=== PATIENT | male | born 1945 | race Caucasian/White ===

== ENCOUNTER 2023-08-12 10:31 | Outpatient (AMB) | payer MEDICARE, SELFPAY ==
[2023-08-12 10:46] VITALS: BP 124/62; PULSE 61; O2SAT 100; BMI 29.3
--- NOTE | 2023-08-12 10:46 | HO.NEPHOV ---
HPI HPI Comments History of Present Illness Details Edgardo 78-year-old man with a history of hypertension for more than 15 years and diabetes mellitus for more than 5 years. He was on metformin and glipizide. Metformin was discontinued due to CKD. 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 Interstitial fibrosis with tubular atrophy with moderate to severe arterial/arteriolar sclerosis He has been diagnosed with prostate cancer and currently undergoing radiation therapy. [facility] Medical History (Updated 08/12/23 @ 10:59 by Shashank Herrera MD) Prostate cancer Hypertension CKD (chronic kidney disease) Surgical History (Updated 08/12/23 @ 10:49 by Angie Reid MA) H/O eye surgery History of coronary artery stent placement H/O angioplasty Family History Father Diabetes Throat cancer Social History (Updated 08/12/23 @ 10:50 by Angie Reid MA) Alcohol intake: never Patient Tobacco Use Status: Never used Tobacco Vital Signs 08/12/23 10:46 Height 5 ft 9 in Weight 198 lb 2 oz BMI 29.3 BP 124/62 Blood Pressure Location Rt brachial Position Sitting Pulse 61 Pulse Source Pulse Oximeter Pulse Oximetry (%) 100 Oxygen Delivery Method Room Air Physical Exam Vital Signs: Last Vital Signs Pulse 61 08/12/23 10:46 BP 124/62 08/12/23 10:46 Pulse Ox 100 08/12/23 10:46 Oxygen Delivery Method Room Air 08/12/23 10:46 BMI result Body Mass Index 29.3 Const General: comfortable Nutritional Appearance: well nourished Orientation/consciousness: patient oriented x3 HEENT Head: No normal to inspection Mouth: moist mucous membranes Neck Neck: Yes supple and Yes no JVD Resp Auscultation: clear to auscultation bilaterally, no rales and rub present Cardio Jugular venous distension: no JVD Palpation: no palpable S3 and no palpable S4 Heart sounds: no rubs GI Palpation (GI): Soft to palpation and nontender Percussion: No Fluid wave present General: Yes no CVA tenderness Back/Spine/Pelvis Back: no CVA tenderness Skin General skin exam: no rashes or lesions noted Neuro General: patient oriented x3 Extrem General: Yes no pedal edema and No clubbing Assessment & Plan Assessment & Plan (1) CKD (chronic kidney disease) stage 3, GFR 30-59 ml/min: Code(s): N18.30 - Chronic kidney disease, stage 3 unspecified (2) Prostate cancer: Code(s): C61 - Malignant neoplasm of prostate Plan Ignacio has CKD 3 in the setting of longstanding hypertension and diabetes mellitus. He has no significant proteinuria. Kidney biopsy revealed focal segmental mesangial nodular expansion with the interstitial fibrosis and tubular atrophy along with moderate to severe arterial and arteriolar sclerosis. At present renal function close to baseline at 1.5. Goal is to slow the progression renal disease. Continue to avoid nephrotoxic agents including NSAIDs. At present blood pressure is well controlled at this time. Maintain hemoglobin A1c less than 7% Mild elevation in PTH did. He has secondary hyperparathyroidism due to CKD. I will continue to monitor serum calcium phosphorus and PTH and start on vitamin D3 analogues as indicated. Orders: Orders Electrolytes 4 Months C61 - Malignant neoplasm of prostate, N18.30 - Chronic kidney disease, stage 3 unspecified Blood Urea Nitrogen 4 Months C61 - Malignant neoplasm of prostate, N18.30 - Chronic kidney disease, stage 3 unspecified Calcium 4 Months C61 - Malignant neoplasm of prostate, N18.30 - Chronic kidney disease, stage 3 unspecified Parathyroid Hormone Intact 4 Months C61 - Malignant neoplasm of prostate, N18.30 - Chronic kidney disease, stage 3 unspecified Phosphorus 4 Months C61 - Malignant neoplasm of prostate, N18.30 - Chronic kidney disease, stage 3 unspecified Creatinine 4 Months C61 - Malignant neoplasm of prostate, N18.30 - Chronic kidney disease, stage 3 unspecified Total Protein Urine Random 4 Months C61 - Malignant neoplasm of prostate, N18.30 - Chronic kidney disease, stage 3 unspecified Creatinine Urine 4 Months C61 - Malignant neoplasm of prostate, N18.30 - Chronic kidney disease, stage 3 unspecified Vitamin D 25-OH (D2 and D3) 4 Months C61 - Malignant neoplasm of prostate, N18.30 - Chronic kidney disease, stage 3 unspecified Coding Level of Care Code Est Pt Level 4 (25690) Diagnoses CKD (chronic kidney disease) stage 3, GFR 30-59 ml/min N18.30 Prostate cancer C61 Results Reviewed Results Reviewed: As of August 05 creatinine 1.5. Serum electrolytes normal Nephrology Results: No Data to Display
== END 2023-08-12 11:08 | disposition home or self-care (01) ==
LOC: HO.HKAS 10:31
PROVIDERS: PCP Internal Medicine; Visit Provider Internal Medicine Hypertension Specialist
DX: N18.30 Chronic kidney disease, stage 3 unspecified (principal); C61 Malignant neoplasm of prostate
CPT/HCPCS: 99214

== ENCOUNTER → 2023-08-12 10:31 | Outpatient (BNVA) | payer MEDICARE, SELFPAY | PROVIDERS: PCP Internal Medicine; Visit Provider Internal Medicine Hypertension Specialist | DX: N18.30 Chronic kidney disease, stage 3 unspecified (principal); C61 Malignant neoplasm of prostate | CPT/HCPCS: 99212 ==

== ENCOUNTER 2023-12-09 10:34 | Outpatient (AMB) | payer MEDICARE, SELFPAY ==
[2023-12-09 10:35] VITALS: BP 102/62; PULSE 71; O2SAT 96; BMI 30.6
--- NOTE | 2023-12-09 10:35 | HO.NEPHOV ---
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 He was on metformin and glipizide. Metformin was discontinued due to CKD. 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 Interstitial fibrosis with tubular atrophy with moderate to severe arterial/arteriolar sclerosis He has been diagnosed with prostate cancer and currently underwent radiation therapy 4 months ago [facility] Medical History (Updated 08/12/23 @ 10:59 by Shashank Herrera MD) Prostate cancer Hypertension CKD (chronic kidney disease) Surgical History H/O eye surgery History of coronary artery stent placement H/O angioplasty Family History Father Diabetes Throat cancer Social History Alcohol intake: never Patient Tobacco Use Status: Never used Tobacco Physical Exam Vital Signs: Last Vital Signs Pulse 71 12/09/23 10:35 BP 102/62 12/09/23 10:35 Pulse Ox 96 12/09/23 10:35 Oxygen Delivery Method Room Air 12/09/23 10:35 BMI result Body Mass Index 30.6 Const General: comfortable Nutritional Appearance: well nourished Orientation/consciousness: patient oriented x3 HEENT Head: No normal to inspection Mouth: moist mucous membranes Neck Neck: Yes supple and Yes no JVD Resp Auscultation: clear to auscultation bilaterally, no rales and rub present Cardio Jugular venous distension: no JVD Palpation: no palpable S3 and no palpable S4 Heart sounds: no rubs GI Palpation (GI): Soft to palpation and nontender Percussion: No Fluid wave present General: Yes no CVA tenderness Back/Spine/Pelvis Back: no CVA tenderness Skin General skin exam: no rashes or lesions noted Neuro General: patient oriented x3 Extrem General: Yes no pedal edema and No clubbing Results Reviewed Results Reviewed: 12/04/23 Cr 1.64 Urine Pro : Cr 0.09 Nephrology Results: No Data to Display Assessment & Plan Assessment & Plan (1) CKD (chronic kidney disease) stage 3, GFR 30-59 ml/min: Code(s): N18.30 - Chronic kidney disease, stage 3 unspecified Category: Medical (2) Prostate cancer: Code(s): C61 - Malignant neoplasm of prostate Category: Medical Plan Ignacio has CKD 3 in the setting of longstanding hypertension and diabetes mellitus. He has no significant proteinuria. Kidney biopsy revealed focal segmental mesangial nodular expansion with the interstitial fibrosis and tubular atrophy along with moderate to severe arterial and arteriolar sclerosis. At present renal function close to baseline at 1.6. Goal is to slow the progression renal disease. Continue to avoid nephrotoxic agents including NSAIDs. At present blood pressure is well controlled at this time. Maintain hemoglobin A1c less than 7% Mild elevation in PTH He has secondary hyperparathyroidism due to CKD. I will continue to monitor serum calcium phosphorus and PTH and start on vitamin D3 analogues as indicated. Low BP Shall hold off on Lisinopril 5 mg QD and watch Orders: Orders Total Protein Urine Random 4 Months N18.30 - Chronic kidney disease, stage 3 unspecified Creatinine Urine 4 Months N05.9 - Unspecified nephritic syndrome with unspecified morphologic changes, N18.30 - Chronic kidney disease, stage 3 unspecified Parathyroid Hormone Intact 4 Months N18.30 - Chronic kidney disease, stage 3 unspecified Basic Metabolic Panel 4 Months N18.30 - Chronic kidney disease, stage 3 unspecified Medications: Discontinued lisinopril Discontinued Reason: Doctor's Order 5 mg PO DAILY 30 tabs 3RF Coding Level of Care Code Est Pt Level 4 (81175) Diagnoses CKD (chronic kidney disease) stage 3, GFR 30-59 ml/min N18.30 Prostate cancer C61
== END 2023-12-09 10:56 | disposition home or self-care (01) ==
PROVIDERS: PCP Internal Medicine; Visit Provider Internal Medicine Hypertension Specialist
DX: N18.30 Chronic kidney disease, stage 3 unspecified (principal); C61 Malignant neoplasm of prostate
CPT/HCPCS: 99214

== ENCOUNTER → 2023-12-09 10:34 | Outpatient (BNVA) | payer MEDICARE, SELFPAY | PROVIDERS: PCP Internal Medicine; Visit Provider Internal Medicine Hypertension Specialist | DX: E11.22 Type 2 diabetes mellitus with diabetic chronic kidney disease (principal); N18.30 Chronic kidney disease, stage 3 unspecified; C61 Malignant neoplasm of prostate; N05.9 Unspecified nephritic syndrome with unspecified morphologic changes | CPT/HCPCS: 99212 ==

== ENCOUNTER 2024-06-22 08:50 | Outpatient (AMB) | payer MEDICARE, SELFPAY ==
[2024-06-22 08:51] VITALS: BP 136/72; PULSE 73; O2SAT 97; BMI 32.5
--- NOTE | 2024-06-22 08:51 | HO.NEPHOV_ITS ---
Vital Signs 06/22/24 08:51 Height 5 ft 9 in Weight 220 lb BMI 32.5 BP 136/72 Blood Pressure Location Lt brachial Position Sitting Pulse 73 Pulse Source Pulse Oximeter Pulse Oximetry (%) 97 Oxygen Delivery Method Room Air Intake Visit Reasons: December appt w/ labs/ CKD/ Conf Literary Writer Required: No Accompanied by: Self / Same As Patient Allergies insulin glargine Allergy (Verified 06/22/24 08:52) Unknown Penicillins Allergy (Verified 06/22/24 08:52) Unknown Medication List - Last Reconciled 06/22/24 by Shashank Herrera MD atorvastatin 80 mg PO DAILY cholecalciferol (vitamin D3) 25 mcg PO DAILY cyanocobalamin (vitamin B-12) 1,000 mcg PO DAILY dutasteride mg PO .every other day fluticasone propionate 50 mcg/actuation sprays intranasal PRN glipizide 5 mg PO BID insulin aspart (niacinamide) 100 unit/mL (3 mL) (Fiasp FlexTouch U-100 Insulin) subcut TID leuprolide mesylate (6 month) (Camcevi (6 month)) 42 mg subcut [id number] metoprolol tartrate 50 mg PO BID omega-3 fatty acids-fish oil 360-1,200 mg (Fish Oil) 1 cap PO DAILY omeprazole 20 mg PO DAILY PRN vitamin B complex (Vitamins B Complex tablet) 1 tab PO DAILY HPI Comments Details: Edgardo 78-year-old man with a history of hypertension for more than 15 years and diabetes mellitus for more than 5 years. He was on metformin and glipizide. Metformin was discontinued due to CKD. 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 Interstitial fibrosis with tubular atrophy with moderate to severe arterial/arteriolar sclerosis He has been diagnosed with prostate cancer and currently underwent radiation therapy . Now on Leuprolide SQ q 6 month c/o Fatigue Has gained about 15 lbs [facility] Medical History (Updated 08/12/23 @ 10:59 by Shashank Herrera MD) Prostate cancer Hypertension CKD (chronic kidney disease) Surgical History H/O eye surgery History of coronary artery stent placement H/O angioplasty Family History Father Diabetes Throat cancer Social History Alcohol intake: never Patient Tobacco Use Status: Never used Tobacco Physical Exam Vital Signs: Last Vital Signs Pulse 73 06/22/24 08:51 BP 136/72 06/22/24 08:51 Pulse Ox 97 06/22/24 08:51 Oxygen Delivery Method Room Air 06/22/24 08:51 BMI result Body Mass Index 32.5 Const General: comfortable Nutritional Appearance: well nourished Orientation/consciousness: patient oriented x3 HEENT Head: No normal to inspection Mouth: moist mucous membranes Neck Neck: Yes supple and Yes no JVD Resp Auscultation: clear to auscultation bilaterally, no rales and rub present Cardio Jugular venous distension: no JVD Palpation: no palpable S3 and no palpable S4 Heart sounds: no rubs GI Palpation (GI): Soft to palpation and nontender Percussion: No Fluid wave present General: Yes no CVA tenderness Back/Spine/Pelvis Back: no CVA tenderness Skin General skin exam: no rashes or lesions noted Neuro General: patient oriented x3 Extrem General: Yes no pedal edema and No clubbing Results Reviewed Results Reviewed: 06/17/24 cr 1.73 Nephrology Results: No Data to Display Assessment & Plan Assessment & Plan (1) CKD (chronic kidney disease) stage 3, GFR 30-59 ml/min: Code(s): N18.30 - Chronic kidney disease, stage 3 unspecified Category: Medical (2) Prostate cancer: Code(s): C61 - Malignant neoplasm of prostate Category: Medical Plan Ray has CKD 3 in the setting of longstanding hypertension and diabetes mellitus. He has no significant proteinuria. Kidney biopsy revealed focal segmental mesangial nodular expansion with the interstitial fibrosis and tubular atrophy along with moderate to severe arterial and arteriolar sclerosis. At present renal function close to baseline at 1.6. Goal is to slow the progression renal disease. Continue to avoid nephrotoxic agents including NSAIDs. At present blood pressure is well controlled at this time. Maintain hemoglobin A1c less than 7% Mild elevation in PTH He has secondary hyperparathyroidism due to CKD. I will continue to monitor serum calcium phosphorus and PTH and start on vitamin D3 analogues as indicated. Check Vit D levels Low BP REsolved after stopping Lisinopril 5 mg QD FAtigue Due to testosterone antagonist Will check HCt adn TSH for completion Orders: Orders Vitamin D 25-OH (D2 and D3) Today C61 - Malignant neoplasm of prostate, N18.30 - Chronic kidney disease, stage 3 unspecified Complete Blood Count no Diff Today C61 - Malignant neoplasm of prostate, N18.30 - Chronic kidney disease, stage 3 unspecified TSH reflex Free T4 Today C61 - Malignant neoplasm of prostate, N18.30 - Chronic kidney disease, stage 3 unspecified Basic Metabolic Panel 6 Months N18.30 - Chronic kidney disease, stage 3 unspecified Complete Blood Count no Diff 6 Months N18.30 - Chronic kidney disease, stage 3 unspecified Parathyroid Hormone Intact 6 Months N18.30 - Chronic kidney disease, stage 3 unspecified Coding Level of Care Code Est Pt Level 4 (66383) Diagnoses CKD (chronic kidney disease) stage 3, GFR 30-59 ml/min N18.30 Prostate cancer C61
== END 2024-06-22 09:10 | disposition home or self-care (01) ==
PROVIDERS: PCP Internal Medicine; Visit Provider Internal Medicine Hypertension Specialist
DX: N18.30 Chronic kidney disease, stage 3 unspecified (principal); C61 Malignant neoplasm of prostate
CPT/HCPCS: 99214

== ENCOUNTER → 2024-06-22 08:50 | Outpatient (BNVA) | payer MEDICARE, SELFPAY | PROVIDERS: PCP Internal Medicine; Visit Provider Internal Medicine Hypertension Specialist | DX: E11.22 Type 2 diabetes mellitus with diabetic chronic kidney disease (principal); I12.9 Hypertensive chronic kidney disease with stage 1 through stage 4 chronic kidney disease, or unspecified chronic kidney disease; C61 Malignant neoplasm of prostate; N18.30 Chronic kidney disease, stage 3 unspecified | CPT/HCPCS: 99212 ==

== ENCOUNTER 2024-12-21 10:46 | Outpatient (REF) | payer MEDICARE, SELFPAY ==
--- OUTSIDE RECORDS SUMMARY | 2024-12-21 12:16 | XMS_ITS | Encounter Summary ---
Author Organization [facility] Address [address] [place] [address] Care Team Providers Care Fixed Income Analyst Name Role Phone Bahman Corrales MD Primary Care Provider [phone] Encounter Details Date Type Department Care Team Description 06/17/2021 Orders Only Internal Medicine - [address], [address] [place] [address] Bahman Corrales MD [address] [place] [address] Type 2 diabetes mellitus without complication, without long-term current use of insulin (HCC) (Primary Dx); Essential hypertension Social History Tobacco Use Types Packs/Day Years Used Date Smoking Tobacco: Former Cigarettes 0.8 15 Q uit: 06/09/1980 Smokeless Tobacco: Never Alcohol Use Standard Drinks/Week Comments Yes 0 (1 standard drink = 0.6 oz pur e alcohol) occasional Sex Assigned at Date Recorded Male 03/06/2021 9:27 AM E DT Job Start Date Occupation Industry Not on file Not on file Not on file COVID-19 Exposure Response Date Recorded In the last month, have you been in contact with someone who was confirmed or suspected to have Coronavirus / COVID-19? No / Unsure 06/19/2021 8:37 AM EST documented as of this encounter Plan of Treatment Not on file documented as of this encounter Results * (ABNORMAL) HEMOGLOBIN A1C (06/19/2021 8:38 AM EST) GLYCATED HEMOGLOBIN A1C 6.9(H) 4.8 - 5.6 % 06/24/2021 11:08 AM EST [facility] Comment: Prediabetes: 5.7 - 6.4 Diabetes: >6.4 Glycemic control for adults with diabetes: <7.0 PLEASE NOTE A1c testing is temporarily being performed at [facility] due to instrumentation issues at [facility] Note differences in reference ranges. Testing performed at: [address] [address] PHONE: ESTIMATED AVERAGE GLUCOSE 151 mg/dL 06/24/2021 11:08 AM EST [facility] 06/19/2021 8:38 AM EST 06/19/2021 8:38 AM EST Narrative [facility] - 06/24/2021 11:08 AM EST Release to patient->Immediate Bahman Corrales MD LAB Performing Organization Address City/[facility]/ZIP Co de Phone Number [facility] * (ABNORMAL) LIPID PROFILE (06/19/2021 8:38 AM EST) Cholesterol 108 0 - 200 mg/dL 06/19/2021 2:55 PM EST [facility] TRIGLYCERIDES 193(H) 0 - 150 mg/dL 06/19/2021 2:55 PM EST [facility] HDL CHOLESTEROL 38(L) >40 mg/dL 2:55 PM EST [facility] LDL CALCULATED 32 0 - 100 mg/dL 06/19/2021 2:55 PM EST [facility] TC-HDLC RATIO 2.8 0 - 4.4 mg/dL 06/19/2021 2:55 PM EST [facility] 06/19/2021 8:38 AM EST 06/19/2021 8:38 AM EST Narrative [facility] - 06/19/2021 2:55 PM EST Release to patient->Immediate Bahman Corrales MD LAB [facility] * THYROID PROFILE W/TSH (06/19/2021 8:38 AM EST) TSH CASCADE 1.48 0.40 - 4.00 uIU/ml 06/19/2021 3:01 PM EST [facility] 06/19/2021 8:38 AM EST 06/19/2021 8:38 AM EST Narrative [facility] - 06/19/2021 3:01 PM EST Release to patient->Immediate Bahman Corrales MD LAB [facility] * (ABNORMAL) CBC (AUTO DIFF PLATELET) (06/19/2021 8:38 AM EST) Pathologist [facility] WHITE BLOOD COUNT 6.5 4.8 - 10.8 x10-3/uL 06/19/2021 2:25 PM EST [facility] RED BLOOD COUNT 4.1(L) 4.5 - 5.5 x10-6/uL 06/19/2021 2:25 PM EST [facility] Hemoglobin 12.3(L) 13.5 - 17.5 g/dL 06/19/2021 2:25 PM EST [facility] Hematocrit 38.5(L) 42 - 54 % 06/19/2021 2:25 PM EST [facility] MEAN CORPUSCULAR VOLUME 95.1 79 - 98 fL 06/19/2021 2:25 PM EST [facility] MEAN CORPUSCULAR HEMOGLOBIN 30.4 27 - 32 pg 06/19/2021 2:25 PM EST [facility] MEAN CORPUSCULAR HGB CONC 31.9(L) 32 - 37 g/dL 06/19/2021 2:25 PM EST [facility] RED CELL DISTRIBUTION WIDTH 12.8 11 - 15 % 06/19/2021 2:25 PM EST [facility] PLT COUNT 179 130 - 400 x10-3/uL 06/19/2021 2:25 PM EST [facility] MEAN PLATELET VOLUME 10.3 7 - 11 fL 06/19/2021 2:25 PM EST [facility] NRBC % AUTO 0.0 <1 % 06/19/2021 2:25 PM EST [facility] NEUTROPHILS % 71.2 % 06/19/2021 2:25 PM EST [facility] LYMPH % 14.7 % 06/19/2021 2:25 PM EST [facility] MONO % 9.4 % 06/19/2021 2:25 PM EST [facility] EOS % 3.9 % 06/19/2021 2:25 PM EST [facility] BASO % 0.5 % 06/19/2021 2:25 PM EST [facility] IMMATURE GRANULOCYTES % 0.3 % 06/19/2021 2:25 PM EST [facility] NRBC # AUTO 0.00 <0.1 x10-3/uL 06/19/2021 2:25 PM EST [facility] NEUT # 4.60 1.5 - 7.0 x10-3/uL 06/19/2021 2:25 PM EST [facility] LYMPH # 0.95(L) 1 - 5.0 x10-3/uL 06/19/2021 2:25 PM EST [facility] MONO # 0.61 0.2 - 1.0 x10-3/uL 06/19/2021 2:25 PM EST [facility] EOS # 0.25 0 - 0.5 x10-3/uL 06/19/2021 2:25 PM EST [facility] BASO # 0.03 0 - 0.2 x10-3/uL 06/19/2021 2:25 PM EST [facility] IMMATURE GRANULOCYTES # 0.02 0 - 0.03 x10-3/uL 06/19/2021 2:25 PM EST [facility] 06/19/2021 8:38 AM EST 06/19/2021 8:38 AM EST Narrative [facility] - 06/19/2021 2:25 PM EST Release to patient->Immediate Bahman Corrales MD LAB [facility] * (ABNORMAL) COMPREHENSIVE METABOLIC PANEL (06/19/2021 8:38 AM EST) GLUCOSE 167(H) 70 - 100 mg/dL 06/19/2021 2:55 PM EST [facility] Comment:Reference range appl icable to fasting specimens only Blood Urea Nitrogen 25 5 - 25 mg/dL 06/19/2021 2:55 PM EST [facility] CREAT 1.65(H) 0.7 - 1.3 mg/dL 06/19/2021 2:55 PM EST [facility] GLOMERULAR FILTRATION RATE 41 06/19/2021 2:55 PM EST [facility] Comment: If patient is -Congolese, multiply result by 1.21 Chronic Kidney Disease: < 60 ml/min/1.73 square meters Kidney Failure: < 15 ml/min/1.73 square meters NA 136 135 - 145 mEq/L 06/19/2021 2:55 PM EST [facility] K 5.2 3.5 - 5.5 mmol/L 06/19/2021 2:55 PM EST [facility] CL 106 96 - 110 mmol/L 06/19/2021 2:55 PM EST [facility] CARBON DIOXIDE (CO2) 24 21 - 32 mmol/L 06/19/2021 2:55 PM EST [facility] ANION GAP 6 3 - 11 06/19/2021 2:55 PM EST [facility] CALCIUM 9.8 8.5 - 10.5 mg/dL 06/19/2021 2:55 PM EST [facility] TOTAL PROTEIN (TP) 7.0 6.0 - 8.0 G/dL 06/19/2021 2:55 PM EST [facility] Albumin 3.8 3.2 - 5.0 G/dL 06/19/2021 2:55 PM EST [facility] BILIRUBIN TOTAL 0.8 0.0 - 1.4 mg/dL 06/19/2021 2:55 PM EST [facility] SGOT 22 10 - 42 U/L 06/19/2021 2:55 PM EST [facility] SGPT 34 10 - 60 U/L 06/19/2021 2:55 PM EST [facility] ALK PHOS 68 42 - 121 U/L 06/19/2021 2:55 PM EST [facility] 06/19/2021 8:38 AM EST 06/19/2021 8:38 AM EST Narrative [facility] - 06/19/2021 2:55 PM EST Release to patient->Immediate Bahman Corrales MD LAB [facility] documented in this encounter Visit Diagnoses Diagnosis Type 2 diabetes mellitus without complication, without long-term current use of insulin (HCC)- Primary Essential hypertension Unspecified essential hypertension Type 2 diabetes mellitus without complication, without long-term current use of insulin (HCC) Essential hypertension Unspecified essential hypertension documented in this encounter Care Teams Fixed Income Analyst Relationship Specialty Start Date End Date Bahman Corrales MD [address] [place] [address] PCP - General Internal Medicine 09/03/18 documented as of this encounter
--- OUTSIDE RECORDS SUMMARY | 2024-12-21 12:16 | XMS_ITS | Encounter Summary ---
Author Organization [facility] Address [address] [place] [address] Care Team Providers Care Concrete Form Setter And Finisher Name Role Phone Bahman Corrales MD Primary Care Provider [phone] Encounter Details Date Type Department Care Team Description 06/11/2023 Director Customer Report Medical Records [address] [place] [id number] Lee Wilhelm MD Social History Tobacco Use Types Packs/Day Years Used Date Smoking Tobacco: Former Cigarettes 0.8 15 Q uit: 06/09/1980 Smokeless Tobacco: Never Alcohol Use Standard Drinks/Week Comments Yes 0 (1 standard drink = 0.6 oz pur e alcohol) occasional very rarely Sex Assigned at Date Recorded Male 03/06/2021 9:27 AM E DT Job Start Date Occupation Industry Not on file Not on file Not on file COVID-19 Exposure Response Date Recorded In the last 10 days, have yo u been in contact with someone who was confirmed or suspected to have Coronavirus/COVID-19? Unable to assess 06/11/2023 3:56 PM EDT documented as of this encounter Plan of Treatment Not on file documented as of this encounter Visit Diagnoses Not on filedocumented in this encounter Care Teams Concrete Form Setter And Finisher Relationship Specialty Start Date End Date Bahman Corrales MD [address] [place] [address] PCP - General Internal Medicine 09/03/18 documented as of this encounter
--- OUTSIDE RECORDS SUMMARY | 2024-12-21 12:16 | XMS_ITS | Encounter Summary ---
Author Organization [facility] Address [address] [place] [address] Care Team Providers Care Lifestyle Consultant Name Role Phone Bahman Corrales MD Primary Care Provider [phone] Reason for Visit * Reason Onset Date Comments lab test 12/10/2020 Encounter Details Date Type Department Care Team Description 12/10/2020 Telephone Internal Medicine - [address], [address] [place] [address] Bahman Corrales MD [address] [place] [address] lab test Social History Tobacco Use Types Packs/Day Years Used Date Smoking Tobacco: Former Cigarettes 0.8 15 Q uit: 06/09/1980 Smokeless Tobacco: Never Alcohol Use Standard Drinks/Week Comments Yes 0 (1 standard drink = 0.6 oz pur e alcohol) occasional Sex Assigned at Date Recorded Male 03/06/2021 9:27 AM E DT Job Start Date Occupation Industry Not on file Not on file Not on file documented as of this encounter Miscellaneous Notes * Telephone Encounter - Reena Adams M.A. - 12/10/2020 10:02 AM EDT Left a voicemail for patient and stated labs were in place documented in this encounter Plan of Treatment Not on file documented as of this encounter Visit Diagnoses Not on filedocumented in this encounter Care Teams Lifestyle Consultant Relationship Specialty Start Date End Date Bahman Corrales MD [address] [place] [address] PCP - General Internal Medicine 09/03/18 documented as of this encounter
--- OUTSIDE RECORDS SUMMARY | 2024-12-21 12:16 | XMS_ITS | Encounter Summary ---
Author Organization [facility] Address [address] [place] [address] Care Team Providers Care Hospice Chaplain Name Role Phone Bahman Corrales MD Primary Care Provider [phone] Encounter Details Date Type Department Care Team Description 12/02/2022 Orders Only Internal Medicine - [address], [address] [place] [address] Bahman Corrales MD [address] [place] [address] Social History Tobacco Use Types Packs/Day Years [...] suspected to have Coronavirus/COVID-19? No / Unsure 11/25/2022 1:04 PM EDT documented as of this encounter Plan of Treatment Not on file documented as of this encounter Visit Diagnoses Not on filedocumented in this encounter Care Teams Hospice Chaplain Relationship Specialty Start Date End Date Bahman Corrales MD [address] [place], [place] [id number] PCP - General Internal Medicine 09/03/18 documented as of this encounter
--- OUTSIDE RECORDS SUMMARY | 2024-12-21 12:16 | XMS_ITS | Encounter Summary ---
Author Organization [facility] Address [address] [place] [address] Care Team Providers Care Reprographics Associate Name Role Phone Bahman Corrales MD Primary Care Provider [phone] Reason for Visit * Reason Onset Date Comments Faxed Refill 10/10/2022 Encounter Details Date Type Department Care Team Description 10/10/2022 Refill Internal Medicine - [address], [address] [place] [address] Bahman Corrales MD [address] [place] [address] Faxed Refill Social History Tobacco Use Types Packs/Day Years [...] suspected to have Coronavirus/COVID-19? No / Unsure 09/29/2022 8:14 AM EST documented as of this encounter Miscellaneous Notes * Telephone Encounter - Zenaida Whiteside - 10/13/2022 9:49 AM EST Orders Only on 09/24/2022 Component Date Value ??? GLYCATED HEMOGLOBIN A1C 09/24/2022 7.7 (H) ??? ESTIMATED AVERAGE GLUCOSE 09/24/2022 174 ??? Cholesterol 09/24/2022 108 ??? TRIGLYCERIDES 09/24/2022 171 (H) ??? HDL CHOLESTEROL 09/24/2022 40 ??? LDL CALCULATED 09/24/2022 34 ??? TC-HDLC RATIO 09/24/2022 2.7 ??? TSH CASCADE 09/24/2022 2.50 ??? WHITE BLOOD COUNT 09/24/2022 6.8 ??? RED BLOOD COUNT 09/24/2022 4.1 (L) ??? Hemoglobin 09/24/2022 12.6 (L) ??? Hematocrit 09/24/2022 38.7 (L) ??? MEAN CORPUSCULAR VOLUME 09/24/2022 95.1 ??? MEAN CORPUSCULAR HEMOGLO* 09/24/2022 31.0 ??? MEAN CORPUSCULAR HGB CONC 09/24/2022 32.6 ??? RED CELL DISTRIBUTION WI* 09/24/2022 13.2 ??? PLT COUNT 09/24/2022 236 ??? MEAN PLATELET VOLUME 09/24/2022 9.9 ??? NRBC % AUTO 09/24/2022 0.0 ??? NEUTROPHILS % 09/24/2022 64.4 ??? LYMPH % 09/24/2022 20.8 ??? MONO % 09/24/2022 8.3 ??? EOS % 09/24/2022 5.1 ??? BASO % 09/24/2022 0.7 ??? IMMATURE GRANULOCYTES % 09/24/2022 0.7 ??? NRBC # AUTO 09/24/2022 0.00 ??? NEUT # 09/24/2022 4.40 ??? LYMPH # 09/24/2022 1.42 ??? MONO # 09/24/2022 0.57 ??? EOS # 09/24/2022 0.35 ??? BASO # 09/24/2022 0.05 ??? IMMATURE GRANULOCYTES # 09/24/2022 0.05 (H) ??? GLUCOSE 09/24/2022 194 (H) ??? Blood Urea Nitrogen 09/24/2022 40 (H) ??? CREAT 09/24/2022 2.47 (H) ??? GLOMERULAR FILTRATION RA* 09/24/2022 26 (L) ??? NA 09/24/2022 135 ??? K 09/24/2022 4.9 ??? CL 09/24/2022 104 ??? CARBON DIOXIDE (CO2) 09/24/2022 25 ??? ANION GAP 09/24/2022 6 ??? CALCIUM 09/24/2022 10.1 ??? Albumin 09/24/2022 3.9 ??? SGOT 09/24/2022 17 ??? TOTAL PROTEIN (TP) 09/24/2022 7.3 ??? BILIRUBIN TOTAL 09/24/2022 0.6 ??? SGPT 09/24/2022 30 ??? ALK PHOS 09/24/2022 49 * Telephone Encounter - Jose Soriano - 10/10/2022 3:24 PM EST [facility] 09/29/22 NOV 02/26/23 documented in this encounter Plan of Treatment Not on file documented as of this encounter Visit Diagnoses Diagnosis Type 2 diabetes mellitus without complication, without long-term current use of insulin (HCC) documented in this encounter Care Teams Reprographics Associate Relationship Specialty Start Date End Date Bahman Corrales MD [address] [place] [address] PCP - General Internal Medicine 09/03/18 documented as of this encounter
--- OUTSIDE RECORDS SUMMARY | 2024-12-21 12:16 | XMS_ITS | Encounter Summary ---
Author Organization [facility] Address [address] [place] [address] Care Team Providers Care Catering Truck Operator Name Role Phone Bahman Corrales MD Primary Care Provider [phone] Reason for Visit * Reason Onset Date Comments Faxed Refill 12/27/2018 Encounter Details Date Type Department Care Team Description 12/27/2018 Refill Internal Medicine - [address], [address] [place] [address] Bahman Corrales MD [address] [place] [address] Faxed Refill Social History Tobacco Use Types Packs/Day Years Used Date Smoking Tobacco: Former Cigarettes 0.5 15 Q uit: 06/09/1980 Smokeless Tobacco: Never Alcohol Use Standard Drinks/Week Comments Yes 0 (1 standard drink = 0.6 oz pur e alcohol) occasional Sex Assigned at Date Recorded Male 03/06/2021 9:27 AM E DT Job Start Date Occupation Industry Not on file Not on file Not on file documented as of this encounter Miscellaneous Notes * Telephone Encounter - Michelle Gurvinder - 12/27/2018 4:38 PM EDT Patient would like script to be: E-PRESCRIBED/FAXED TO PHARMACY WHEN WAS THE PATIENT'S LAST APPOINTMENT IN ADULT MEDICINE? 11/23/2018 WHEN WAS THE LAST TIME THE PATIENT SAW THEIR PCP? Does patient have an upcoming appointment? Yes 04/05/2019 (THE MEDICATION REQUESTED IS ON THE MED LIST ABOVE) All of the medications requested were on the CURRENT MEDS list Did you check the Pharmacy information above?: YES Patient wants: 30 -day supply Is this a mail order prescription request ? NO If the refill is from a FAXED refill request what is the RX # listed on the fax? N/A Patients current insurance carrier is: [place] / [place] / Product Type: MEDICARE [id number] documented in this encounter Plan of Treatment Not on file documented as of this encounter Visit Diagnoses Not on filedocumented in this encounter Care Teams Catering Truck Operator Relationship Specialty Start Date End Date Bahman Corrales MD [address] [place] [address] PCP - General Internal Medicine 09/03/18 documented as of this encounter
--- OUTSIDE RECORDS SUMMARY | 2024-12-21 12:16 | XMS_ITS | Encounter Summary ---
Author Organization [facility] Address [address] [place] [address] Care Team Providers Care Line Assembly Utility Worker Name Role Phone Bahman Corrales MD Primary Care Provider [phone] Encounter Details Date Type Department Care Team Description 06/23/2023 Solar Process Engineer Report Medical Records [address] [place] [address] Norris Humphries MD Social History Tobacco Use Types Packs/Day [...] on filedocumented in this encounter Care Teams Line Assembly Utility Worker Relationship Specialty Start Date End Date Bahman Corrales MD [address] [place] [address] PCP - General Internal Medicine 09/03/18 documented as of this encounter
--- OUTSIDE RECORDS SUMMARY | 2024-12-21 12:16 | XMS_ITS | Encounter Summary ---
Author Organization [facility] Address [address] [place] [address] Care Team Providers Care Paying Teller Name Role Phone Bahman Corrales MD Primary Care Provider [phone] Reason for Visit * Reason Onset Date Comments Provider Call Back 10/31/2020 Encounter Details Date Type Department Care Team Description 10/31/2020 Telephone Internal Medicine - [address], [address] [place] [address] Bahman Corrales MD [address] [place] [address] Provider Call Back Social History Tobacco Use Types Packs/Day Years [...] encounter Miscellaneous Notes * Telephone Encounter - Jackie Williamson L.P.N. - 10/31/2020 2:22 PM EDT Please see below and advise re increasing omeprazole 20 mg per Natalyia pulmo for cough, patient presently taking QOD thanks * Telephone Encounter - Altagracia Viera - 10/31/2020 9:30 AM EDT Caller requesting call back from provider: Is the caller the patient? YES If caller is not the patient, what is the callers name? N/A Callers relationship to patient? N/A If person calling is not the patient themselves, is there a verbal release in FYI or permanent comments for this person: NO Reason for call back: Patient states that Extension Edger Joanna told him to call Dr. Corrales and have him increase omeprazole (PRILOSEC) 20 MG capsule. He currently takes it every other day and Joanna is requesting he takes it everyday, she thinks this may be what is causing his persistent cough.Please call and advise. Caller offered to speak with the nurse for assistance: YES Response: Patient offered to speak with nurse for assistance and patient agreed. Message forwarded to nurse. documented in this encounter Plan of Treatment Not on file documented as of this encounter Visit Diagnoses Not on filedocumented in this encounter Care Teams Paying Teller Relationship Specialty Start Date End Date Bahman Corrales MD [address] [place] [address] PCP - General Internal Medicine 09/03/18 documented as of this encounter
--- OUTSIDE RECORDS SUMMARY | 2024-12-21 12:16 | XMS_ITS | Encounter Summary ---
Author Organization [employer] [facility] Address [address] [place] [address] Care Team Providers Care Composition Siding Worker Name Role Phone Bahman Corrales MD Primary Care Provider [phone] Encounter Details Date Type Department Care Team Description 01/29/2023 Upholstery Bundler Report Medical Records [address] [place] [address] Lee Wilhelm MD Social History Tobacco Use [...] suspected to have Coronavirus/COVID-19? No / Unsure 01/01/2023 10:02 AM EDT documented as of this encounter Plan of Treatment Not on file documented as of this encounter Visit Diagnoses Not on filedocumented in this encounter Care Teams Composition Siding Worker Relationship Specialty Start Date End Date Bahman Corrales MD [address] [place] [address] PCP - General Internal Medicine 09/03/18 documented as of this encounter
--- OUTSIDE RECORDS SUMMARY | 2024-12-21 12:16 | XMS_ITS | Encounter Summary ---
Author Organization [employer] [facility] Address [address] [place] [address] Care Team Providers Care Bed Control Specialist Name Role Phone Bahman Corrales MD Primary Care Provider [phone] Encounter Details Date Type Department Care Team Description 04/24/2020 Orders Only Internal Medicine - [address], [address] [place] [address] Bahman Corrales MD [address] [place] [address] Social History Tobacco Use Types Packs/Day Years [...] have Coronavirus / COVID-19? No / Unsure 04/24/2020 8:35 AM EDT documented as of this encounter Plan of Treatment Not on file documented as of this encounter Visit Diagnoses Not on filedocumented in this encounter Care Teams Bed Control Specialist Relationship Specialty Start Date End Date Bahman Corrales MD [address] [place], [place] [id number] PCP - General Internal Medicine 09/03/18 documented as of this encounter
--- OUTSIDE RECORDS SUMMARY | 2024-12-21 12:16 | XMS_ITS | Encounter Summary ---
Author Organization [facility] Address [address] [place] [address] Care Team Providers Care Fire Extinguisher Installer Name Role Phone Bahman Corrales MD Primary Care Provider [phone] Reason for Visit * Reason Comments E-prescribe Rx Request Encounter Details Date Type Department Care Team Description 03/05/2021 Refill Pulmonology - [address] [place] [phone] Bahman Corrales MD [address] [place] [address] E-prescribe Rx Request Social History Tobacco Use Types Packs/Day Years [...] encounter Miscellaneous Notes * Telephone Encounter - Maren Jones - 03/08/2021 3:26 PM EDT [place] 12/20/2020 NOV 06/25/2021 90 day supply documented in this encounter Plan of Treatment Not on file documented as of this encounter Visit Diagnoses Not on filedocumented in this encounter Care Teams Fire Extinguisher Installer Relationship Specialty Start Date End Date Bahman Corrales MD [address] [place] [address] PCP - General Internal Medicine 09/03/18 documented as of this encounter
--- OUTSIDE RECORDS SUMMARY | 2024-12-21 12:16 | XMS_ITS | Encounter Summary ---
Author Organization [employer] [facility] Address [address] [place] [address] Care Team Providers Care Audio Visual Tech Name Role Phone Bahman Corrales MD Primary Care Provider [phone] Reason for Visit * Reason Onset Date Comments refill request 06/24/2023 Encounter Details Date Type Department Care Team Description 06/24/2023 Refill Internal Medicine - [address], [address] [place] [address] Bahman Corrales MD [address] [place] [address] refill request Social History Tobacco Use Types Packs/Day Years [...] encounter Miscellaneous Notes * Telephone Encounter - Kalsa Guadalupe - 06/25/2023 8:38 AM EST Orders Only on 04/09/2023 Component Date Value ??? GLYCATED HEMOGLOBIN A1C 04/09/2023 6.9 (H) ??? ESTIMATED AVERAGE GLUCOSE 04/09/2023 151 ??? CREATININE, RANDOM URINE 04/09/2023 126 ??? MICROALBUMIN, RANDOM 04/09/2023 22.1 ??? MICROALB/CRE RATIO RANDOM 04/09/2023 17.5 documented in this encounter Plan of Treatment Not on file documented as of this encounter Visit Diagnoses Not on filedocumented in this encounter Care Teams Audio Visual Tech Relationship Specialty Start Date End Date Bahman Corrales MD [address] [place] [address] PCP - General Internal Medicine 09/03/18 documented as of this encounter
--- OUTSIDE RECORDS SUMMARY | 2024-12-21 12:16 | XMS_ITS | Encounter Summary ---
Author Organization [facility] Address [address] [place] [address] Care Team Providers Care Chair And Couch Maker Name Role Phone Bahman Corrales MD Primary Care Provider [phone] Encounter Details Date Type Department Care Team Description 09/09/2023 Pt. Non Urgent Medical Question Endocrinology - [address] [address] Connie Baker PA-C [address] [place] [address] Social History Tobacco Use Types Packs/Day Years [...] encounter Miscellaneous Notes * Telephone Encounter - Raza Camejo - 09/09/2023 12:35 PM ESTFrom: Dany Dudley To: Azeb Baker Sent: 09/09/2023 12:16 PM EST Subject: blood glucose levels From Ignacio Dudley- Currently being treated for prostate cancer with radiation and testosterone blockerEligard. Having difficulty keeping blood glucose average under 160. Any suggestions? documented in this encounter Plan of Treatment Not on file documented as of this encounter Visit Diagnoses Not on filedocumented in this encounter Care Teams Chair And Couch Maker Relationship Specialty Start Date End Date Bahman Corrales MD [address] [place] [address] PCP - General Internal Medicine 09/03/18 documented as of this encounter
--- OUTSIDE RECORDS SUMMARY | 2024-12-21 12:16 | XMS_ITS | Encounter Summary ---
Author Organization [facility] Address [address] [place] [address] Care Team Providers Care Case Manager Name Role Phone Bahman Corrlaes MD Primary Care Provider [phone] Reason for Visit * Reason Onset Date Comments refill request 07/19/2019 Encounter Details Date Type Department Care Team Description 07/19/2019 Refill Adult Med - [place] [address] [place] [address] Bahman Corrales MD [address] [place], [place] [id number] refill request Social History Tobacco Use Types [...] encounter Miscellaneous Notes * Telephone Encounter - Tarik Aragon R.N. - 07/19/2019 2:28 PM EST Last OV 04/05/19 Next OV 10/11/19 Last fill 06/22/18 Lab Results Component Value Date HGBA1C 6.9 03/30/2019 * Telephone Encounter - Bertha Jacobs - 07/19/2019 1:00 PM EST Patient would like script to be: E-PRESCRIBED/FAXED TO PHARMACY WHEN WAS THE PATIENT'S LAST APPOINTMENT IN ADULT MEDICINE? 04/05/19 WHEN WAS THE LAST TIME THE PATIENT SAW THEIR PCP? Same as above Does patient have an upcoming appointment? Yes 10/11/19 (THE MEDICATION REQUESTED IS ON THE MED [...] / Plan: [place] / Product Type: MEDICARE [id number] documented in this encounter Plan of Treatment Not on file documented as of this encounter Visit Diagnoses Not on filedocumented in this encounter Care Teams Case Manager Relationship Specialty Start Date End Date Bahman Corrales MD [address] [place] [address] PCP - General Internal Medicine 09/03/18 documented as of this encounter
--- OUTSIDE RECORDS SUMMARY | 2024-12-21 12:16 | XMS_ITS | Encounter Summary ---
Author Organization [employer] [facility] Address [address] [place] [address] Care Team Providers Care Glass Laminating Operator Name Role Phone Bahman Corrales MD Primary Care Provider [phone] Encounter Details Date Type Department Care Team Description 03/19/2023 Refill Internal Medicine [address], [address] [place] [address] Bahman Corrales MD [address] [place] [address] Social History Tobacco Use Types Packs/Day Years [...] suspected to have Coronavirus/COVID-19? No / Unsure 03/11/2023 10:49 AM EDT documented as of this encounter Plan of Treatment Not on file documented as of this encounter Visit Diagnoses Not on filedocumented in this encounter Care Teams Glass Laminating Operator Relationship Specialty Start Date End Date Bahman Corrales MD [address] [place], [place] [id number] PCP - General Internal Medicine 09/03/18 documented as of this encounter
--- OUTSIDE RECORDS SUMMARY | 2024-12-21 12:16 | XMS_ITS | Encounter Summary ---
Author Organization [facility] Address [address] [place] [address] Care Team Providers Care Business Applications Developer Name Role Phone Bahman Corrales MD Primary Care Provider [phone] Encounter Details Date Type Department Care Team Description 02/04/2023 Analysis Manager Report Medical Records [address] [place] [address] Shashank Herrera MD Social History Tobacco Use [...] on file documented as of this encounter Plan of Treatment Not on file documented as of this encounter Visit Diagnoses Not on filedocumented in this encounter Care Teams Business Applications Developer Relationship Specialty Start Date End Date Bahman Corrales MD [address] [place], [place] [phone] PCP - General Internal Medicine 09/03/18 documented as of this encounter
--- OUTSIDE RECORDS SUMMARY | 2024-12-21 12:16 | XMS_ITS | Encounter Summary ---
Author Organization [facility] Address [address] [place] [address] Care Team Providers Care Lidar Scientist Name Role Phone Bahman Corrales MD Primary Care Provider [phone] Encounter Details Date Type Department Care Team Description 05/20/2019 Manager Environmental Health Report Medical Records [address] [place] [address] Ashlee Yoder PA-C Social History Tobacco Use Types Packs/Day Years [...] on filedocumented in this encounter Care Teams Lidar Scientist Relationship Specialty Start Date End Date Bahman Corrales MD [address] [place], [place] [phone] PCP - General Internal Medicine 09/03/18 documented as of this encounter
--- OUTSIDE RECORDS SUMMARY | 2024-12-21 12:16 | XMS_ITS | Encounter Summary ---
Author Organization [facility] Address [address] [place] [address] Care Team Providers Care Nuclear Pharmacist Name Role Phone Bahman Corrales MD Primary Care Provider [phone] Reason for Visit * Reason Onset Date Comments Computer Systems Architect Feedback 06/02/2023 Pre op schedulin g Encounter Details Date Type Department Care Team Description 06/02/2023 Telephone Internal Medicine - [address], [address] [place] [address] Rupal Morrison MD [address] [place] [phone] Computer Systems Architect Feedback (Pre op scheduling) Social History Tobacco Use Types Packs/Day Years [...] encounter Miscellaneous Notes * Telephone Encounter - Rupal Morrison MD - 06/02/2023 1:13 PM EDT Addendum of the note already done. * Telephone Encounter - Marta Aburto - 06/02/2023 12:[address] Morrison, You saw patient for a pre op appointment back on 02/16/[address] Velazquez. 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 Office is asking if an addendum can be created on the pre op visit from February to say patient is cleared to have this low risk surgery, vitrectomy. Please let me know andrea as the patient is scheduled for surgery tomorrow at 7am. Thank you, Marta Villarreal Referrals Department documented in this encounter Plan of Treatment Not on file documented as of this encounter Visit Diagnoses Not on filedocumented in this encounter Care Teams Nuclear Pharmacist Relationship Specialty Start Date End Date Bahman Corrales MD [address] [place] [address] PCP - General Internal Medicine 09/03/18 documented as of this encounter
--- OUTSIDE RECORDS SUMMARY | 2024-12-21 12:16 | XMS_ITS | Encounter Summary ---
Author Organization [employer] [facility] Address [address] [place] [address] Care Team Providers Care Data Developer Name Role Phone Bahman Corrales MD Primary Care Provider [phone] Reason for Visit * Reason Onset Date Comments refill request 12/18/2022 Encounter Details Date Type Department Care Team Description 12/18/2022 Refill Internal Medicine - [address], [address] [place] [address] Bahman Corrales MD [address] [place] [address] refill request Social History Tobacco Use Types [...] encounter Miscellaneous Notes * Telephone Encounter - Court Person - 12/18/2022 4:50 PM EDT Office Visit on 11/20/2022 Component Date Value ??? GLUCOSE, FINGERSTICK 11/20/2022 371 (A) * Telephone Encounter - Maren clair Jones - 12/18/2022 3:19 PM EDT Princess 11/25/2022 Nov 02/26/2023 documented in this encounter Plan of Treatment Not on file documented as of this encounter Visit Diagnoses Not on filedocumented in this encounter Care Teams Data Developer Relationship Specialty Start Date End Date Bahman Corrales MD [address] [place] [address] PCP - General Internal Medicine 09/03/18 documented as of this encounter
--- OUTSIDE RECORDS SUMMARY | 2024-12-21 12:16 | XMS_ITS | Encounter Summary ---
Author Organization [facility] Address [address] [place] [address] Care Team Providers Care Neuropsychologist Name Role Phone Bahman Corrales MD Primary Care Provider [phone] Encounter Details Date Type Department Care Team Description 05/01/2020 Capacity Planning Analyst Report Medical Records [address] [place] [address] Chase Peguero Social History Tobacco Use Types Packs/Day Years [...] on filedocumented in this encounter Care Teams Neuropsychologist Relationship Specialty Start Date End Date Bahman Corrales MD [address] [place] [address] PCP - General Internal Medicine 09/03/18 documented as of this encounter
--- OUTSIDE RECORDS SUMMARY | 2024-12-21 12:16 | XMS_ITS | Encounter Summary ---
Author Organization [facility] Address [address] [place] [address] Care Team Providers Care Drawing Box Tender Name Role Phone Bahman Corrales MD Primary Care Provider [phone] Reason for Visit * Reason Onset Date Comments Pre Op Visit 02/12/2023 Encounter Details Date Type Department Care Team Description 02/12/2023 Telephone Internal Medicine - [address], [address] [place] [address] Bahman Corrales MD [address] [place] [address] Pre Op Visit Social History Tobacco Use Types Packs/Day Years [...] suspected to have Coronavirus/COVID-19? No / Unsure 02/11/2023 10:20 AM EDT documented as of this encounter Miscellaneous Notes * Telephone Encounter - Maddison Oscar MA - 02/13/2023 12:06 PM EDT [employer] Unfortunately our providers do not have any apps available until March. * Telephone Encounter - Jackie Walters - 02/12/2023 4:31 PM EDT I need to know if you can help me find an appointment for Dany Dudley - who is having emergency surgery. He is scheduled for a vitrectomy on February 19 with [facility]. Any help you can give is appreciated. Thank you Merlene documented in this encounter Plan of Treatment Not on file documented as of this encounter Visit Diagnoses Not on filedocumented in this encounter Care Teams Drawing Box Tender Relationship Specialty Start Date End Date Bahman Corrales MD [address] [place] [address] PCP - General Internal Medicine 09/03/18 documented as of this encounter
--- OUTSIDE RECORDS SUMMARY | 2024-12-21 12:16 | XMS_ITS | Encounter Summary ---
Author Organization [facility] Address [address] [place] [address] Care Team Providers Care Certified Pedorthotist Name Role Phone Bahman Corrales MD Primary Care Provider [phone] Encounter Details Date Type Department Care Team Description 04/10/2021 On Awake Counselor Report Medical Records [address] [place] [address] Shashank Herrera MD Social History Tobacco Use [...] on filedocumented in this encounter Care Teams Certified Pedorthotist Relationship Specialty Start Date End Date Bahman Corrales MD [address] [place], [place] [id number] PCP - General Internal Medicine 09/03/18 documented as of this encounter
--- OUTSIDE RECORDS SUMMARY | 2024-12-21 12:16 | XMS_ITS | Clinical Summary ---
Author Organization [facility] Address [address] [place] [address] Care Team Providers Care Line Department Supervisor Name Role Phone Bahman Corrales MD [...] 20 mg by mouth daily. 0 Active Bellevue-3 Fatty Acids (Fish Oil) 1000 MG CAPS [...] artery 04/10/2021 Overview: cardiology Dr. Peguero at [facility] cardiology Dr. Peguero at [facility] Class 1 obesity 04/10/2021 Type 2 diabetes [...] age to complete this topic Care Teams Line Department Supervisor Relationship Specialty Start Date End Date Bahman Corrales MD PCP - General Internal Medicine 07/19/21
--- OUTSIDE RECORDS SUMMARY | 2024-12-21 12:16 | XMS_ITS | Encounter Summary ---
[facility] Organization [facility] Address [address] [place] [address] Care Team Providers Care Applications Trainer Name Role Phone Bahman Corrales MD Primary Care Provider [phone] Reason for Visit * Reason Onset Date Comments LAB WORK 06/14/2021 Encounter Details Date Type Department Care Team Description 06/14/2021 Telephone Internal Medicine - [address], [address] [place] [address] Bahman Corrales MD [address] [place] [address] LAB WORK Social History Tobacco Use Types Packs/Day Years [...] encounter Miscellaneous Notes * Telephone Encounter - Dillon Roberts - 06/17/2021 8:24 AM EST [address] is lab orders? , once done I will notify pt. * Telephone Encounter - Yen Tovar - 06/14/2021 3:47 PM EDT Lisanet calling requesting labs to be ordered before hi appointment with Dr. Corrales on 06/25/2021. Requesting a call back if ordered. documented in this encounter Plan of Treatment Not on file documented as of this encounter Visit Diagnoses Not on filedocumented in this encounter Care Teams Applications Trainer Relationship Specialty Start Date End Date Bahman Corrales MD [address] [place] [address] PCP - General Internal Medicine 09/03/18 documented as of this encounter
--- OUTSIDE RECORDS SUMMARY | 2024-12-21 12:16 | XMS_ITS | Encounter Summary ---
Author Organization [email or web address] [facility] Address [address] [place] [address] Care Team Providers Care Care Navigator Name Role Phone Bahman Corrales MD Primary Care Provider [phone] Encounter Details Date Type Department Care Team Description 03/16/2023 Diabetic log Medical Records [address] [place] [address] Abstract, Provider Social History Tobacco Use Types Packs/Day Years [...] on filedocumented in this encounter Care Teams Care Navigator Relationship Specialty Start Date End Date Bahman Corrales MD [address] [place] [address] PCP - General Internal Medicine 09/03/18 documented as of this encounter
--- OUTSIDE RECORDS SUMMARY | 2024-12-21 12:16 | XMS_ITS | Encounter Summary ---
Author Organization [facility] Address [address] [place] [address] Care Team Providers Care Fleet Dispatch Manager Name Role Phone Bahman Corrales MD Primary Care Provider [phone] Encounter Details Date Type Department Care Team Description 07/06/2019 Hospital Medical Records [address] [place] [address] Scar Moore MD Social History Tobacco Use Types Packs/Day [...] on filedocumented in this encounter Care Teams Fleet Dispatch Manager Relationship Specialty Start Date End Date Bahman Corrales MD [address] [place], [place] [id number] PCP - General Internal Medicine 09/03/18 documented as of this encounter
--- OUTSIDE RECORDS SUMMARY | 2024-12-21 12:16 | XMS_ITS | Encounter Summary ---
Author Organization [facility] Address [address] [place] [address] Care Team Providers Care Tuyere Fitter Name Role Phone Bahman Corrales MD Primary Care Provider [phone] Encounter Details Date Type Department Care Team Description 12/10/2018 Release of Information Medical Records [address] [place] [id number] Abstract, Provider Social History Tobacco Use Types [...] on filedocumented in this encounter Care Teams Tuyere Fitter Relationship Specialty Start Date End Date Bahman Corrales MD [address] [place], [place] [id number] PCP - General Internal Medicine 09/03/18 documented as of this encounter
--- OUTSIDE RECORDS SUMMARY | 2024-12-21 12:16 | XMS_ITS | Encounter Summary ---
Author Organization [employer] [facility] Address [address] [place] [address] Care Team Providers Care Electrician Crane Maintenance Name Role Phone Bahman Corrales MD Primary Care Provider [phone] Encounter Details Date Type Department Care Team Description 11/19/2022 Personal Lines Sales Rep Report Medical Records [address] [place] [address] Shashank Herrera MD Social History Tobacco Use [...] suspected to have Coronavirus/COVID-19? No / Unsure 11/20/2022 9:56 AM EDT documented as of this encounter Plan of Treatment Not on file documented as of this encounter Visit Diagnoses Not on filedocumented in this encounter Care Teams Electrician Crane Maintenance Relationship Specialty Start Date End Date Bahman Corrales MD [address] [place] [address] PCP - General Internal Medicine 09/03/18 documented as of this encounter
--- OUTSIDE RECORDS SUMMARY | 2024-12-21 12:16 | XMS_ITS | Encounter Summary ---
Author Organization [facility] Address [address] [place] [address] Care Team Providers Care Desizing Machine Offbearer Name Role Phone Bahman Corrales MD Primary Care Provider [phone] Encounter Details Date Type Department Care Team Description 10/14/2023 Heart Nurse Report Medical Records [address] [place] [address] Tamiko Muñoz Social History Tobacco Use Types Packs/Day Years [...] on filedocumented in this encounter Care Teams Desizing Machine Offbearer Relationship Specialty Start Date End Date Bahman Corrales MD [address] [place], [place] [id number] PCP - General Internal Medicine 09/03/18 documented as of this encounter
--- OUTSIDE RECORDS SUMMARY | 2024-12-21 12:16 | XMS_ITS | Encounter Summary ---
Author Organization [facility] Address [address] [place] [address] Care Team Providers Care Scrap Breaker Name Role Phone Bahman Corrales MD Primary Care Provider [phone] Reason for Visit * Reason Comments E-prescribe Rx Request Encounter Details Date Type Department Care Team Description 08/06/2020 Refill Adult Med - [place] 98 [address] [place] [address] Bahman Corrales MD [address] [place], [place] [id number] E-prescribe Rx Request Social History Tobacco Use [...] have Coronavirus / COVID-19? No / Unsure 07/17/2020 7:54 AM EST documented as of this encounter Miscellaneous Notes * Telephone Encounter - Jodie Dietrich M.A. - 08/06/2020 11:33 AM EST Lab Results Component Value Date HGBA1C 7.1 04/24/2020 MALBUR 33.4 04/24/2020 MALBCR 15.9 04/24/2020 CHOL 103 04/24/2020 LDL 34 04/24/2020 HDL 38 04/24/2020 TRIG 156 04/24/2020 GLU 164 04/24/2020 CREAT 1.28 04/24/2020 * Telephone Encounter - Marta Cheryl - 08/06/2020 10:45 AM EST [place] 06/21/2020 NOV: 12/20/2020 90 day supply. documented in this encounter Plan of Treatment Not on file documented as of this encounter Visit Diagnoses Not on filedocumented in this encounter Care Teams Scrap Breaker Relationship Specialty Start Date End Date Bahman Corrales MD [address] [place] [address] PCP - General Internal Medicine 09/03/18 documented as of this encounter
--- OUTSIDE RECORDS SUMMARY | 2024-12-21 12:16 | XMS_ITS | Encounter Summary ---
Author Organization [facility] Address [address] [place] [address] Care Team Providers Care Superintendent Institution Name Role Phone Bahman Corrales MD Primary Care Provider [phone] Encounter Details Date Type Department Care Team Description 08/12/2023 Focuser Report Medical Records [address] [place] [address] Shashank Herrera MD Social History Tobacco Use [...] on filedocumented in this encounter Care Teams Superintendent Institution Relationship Specialty Start Date End Date Bahman Corrales MD [address] [place], [place] [id number] PCP - General Internal Medicine 09/03/18 documented as of this encounter
--- OUTSIDE RECORDS SUMMARY | 2024-12-21 12:17 | XMS_ITS | Encounter Summary ---
Author Organization [facility] Address [address] [place] [address] Care Team Providers Care Bilingual Social Worker Name Role Phone Bahman Corrales MD Primary Care Provider Encounter Details Date Type Department Care Team Description 09/08/2018 Telephone Adult Med - [place] [address] [place] [address] Bahman Corrales MD [address] [place] [address] Social History Tobacco Use Types Packs/Day Years Used Date Smoking Tobacco: Former Cigarettes 0.5 15 Q uit: 06/09/1980 Smokeless Tobacco: Never Sex Assigned at Date Recorded Male 03/06/2021 9:27 AM E DT Job Start Date Occupation Industry Not on file Not on file Not on file documented as of this encounter Plan of Treatment Not on file documented as of this encounter Visit Diagnoses Not on filedocumented in this encounter Care Teams Bilingual Social Worker Relationship Specialty Start Date End Date Bahman Corrales MD [address] [place], [place] [id number] PCP - General Internal Medicine 09/03/18 documented as of this encounter
--- OUTSIDE RECORDS SUMMARY | 2024-12-21 12:17 | XMS_ITS | Encounter Summary ---
Author Organization [facility] Address [address] [place] [address] Care Team Providers Care Supervisor Safety Deposit Name Role Phone Bahman Corrales MD Primary Care Provider [phone] Reason for Visit * Reason Onset Date Comments Provider Call Back 10/06/2022 Encounter Details Date Type Department Care Team Description 10/06/2022 Telephone Internal Medicine - [address], [address] [place] [address] Bahman Corrales MD [address] [place] [address] Provider Call Back Social History Tobacco Use [...] encounter Miscellaneous Notes * Telephone Encounter - Pebbles Hernandez - 10/06/2022 10:45 AM EST PT wants a call back to discuss new medication Jardiance his blood sugar levels have increseased 219,222 etc. documented in this encounter Plan of Treatment Not on file documented as of this encounter Visit Diagnoses Not on filedocumented in this encounter Care Teams Supervisor Safety Deposit Relationship Specialty Start Date End Date Bahman Corrales MD [address] [place] [address] PCP - General Internal Medicine 09/03/18 documented as of this encounter
--- OUTSIDE RECORDS SUMMARY | 2024-12-21 12:17 | XMS_ITS | Encounter Summary ---
Author Organization [facility] Address [address] [place] [address] Care Team Providers Care Carpet Sewer Name Role Phone Israel Medel MD Primary Care Provider Bahman Guerra MD Primary Care Provider [phone] Encounter Details Date Type Department Care Team Description 07/23/2018 Refill Adult Med - [place] [address] [place] [address] Israel Medel MD Social History Tobacco Use Types Packs/Day [...] on filedocumented in this encounter Care Teams Carpet Sewer Relationship Specialty Start Date End Date Isreal Medel MD PCP - General Internal Medicine 05/29/18 09/02/18 Bahman Corrales MD [address] [place], [place] [id number] PCP - General Internal Medicine 09/03/18 documented as of this encounter
--- OUTSIDE RECORDS SUMMARY | 2024-12-21 12:17 | XMS_ITS | Encounter Summary ---
Author Organization [facility] Address [address] [place] [address] Phone Care Team Providers Care Email Campaign Manager Name Role Phone Bahman Corrales MD Primary Care Provider [phone] Encounter Details Date Type Department Care Team (Late st Contact Info) Description 12/16/2022 Telephone [facility] [address] [place] [phone] Lindsey Neely Social History Tobacco Use Types [...] on filedocumented in this encounter Care Teams Email Campaign Manager Relationship Specialty Start Date End Date Bahman Corrales MD [address] [place] [address] PCP - General Internal Medicine 03/05/21 documented as of this encounter
--- OUTSIDE RECORDS SUMMARY | 2024-12-21 12:17 | XMS_ITS | Encounter Summary ---
Author Organization [employer] [facility] Address [address] [place] [address] Care Team Providers Care Com Writer Name Role Phone Bahman Corrales MD Primary Care Provider [phone] Encounter Details Date Type Department Care Team Description 11/04/2021 Orders Only Internal Medicine - [address], [address] [place] [address] Bahman Corrales MD [address] [place] [address] Social History Tobacco Use Types Packs/Day Years [...] on filedocumented in this encounter Care Teams Com Writer Relationship Specialty Start Date End Date Bahman Corrales MD [address] [place] [address] PCP - General Internal Medicine 09/03/18 documented as of this encounter
--- OUTSIDE RECORDS SUMMARY | 2024-12-21 12:17 | XMS_ITS | Encounter Summary ---
Author Organization [facility] Address [address] [place] [address] Phone Care Team Providers Care Hand Candle Molder Name Role Phone Bahman Corrales MD Primary Care Provider [phone] Encounter Details Date Type Department Care Team (Late st Contact Info) Description 01/19/2023 Telephone [facility] [address] [place] [phone] Lindsey Neely Social History Tobacco Use Types [...] on filedocumented in this encounter Care Teams Hand Candle Molder Relationship Specialty Start Date End Date Bahman Corrales MD [address] [place] [address] PCP - General Internal Medicine 03/05/21 documented as of this encounter
--- OUTSIDE RECORDS SUMMARY | 2024-12-21 12:17 | XMS_ITS | Encounter Summary ---
Author Organization [facility] Address [address] [place] [address] Care Team Providers Care Church Administrator Name Role Phone Bahman Corrales MD Primary Care Provider [phone] Reason for Visit * Reason Comments E-prescribe Rx Request Encounter Details Date Type Department Care Team Description 06/07/2024 Refill Endocrinology - [address] [address] Connie Baker PA-C [address] [place] [address] E-prescribe Rx Request Social History Tobacco Use [...] encounter Miscellaneous Notes * Telephone Encounter - Danyell Morfin M.A. - 06/07/2024 2:43 PM EDT Lab Results Component Value Date HGBA1C 6.7 04/07/2024 MALBUR 22.1 04/09/2023 MALBCR 17.5 04/09/2023 CHOL 136 10/28/2023 LDL 54 10/28/2023 HDL 51 10/28/2023 TRIG 157 10/28/2023 GLU 143 04/07/2024 CREAT 1.48 04/07/2024 [place] 04/12/24 NOV 08/12/24 documented in this encounter Plan of Treatment Not on file documented as of this encounter Visit Diagnoses Diagnosis Type 2 diabetes mellitus with hyperglycemia, without long-term current use of insulin (HCC) documented in this encounter Care Teams Church Administrator Relationship Specialty Start Date End Date Bahman Corrales MD [address] [place] [address] PCP - General Internal Medicine 09/03/18 documented as of this encounter
--- OUTSIDE RECORDS SUMMARY | 2024-12-21 12:17 | XMS_ITS | Encounter Summary ---
Author Organization [facility] Address [address] [place] [address] Care Team Providers Care Bank Secrecy Act Officer Name Role Phone Bahman Corrales MD Primary Care Provider [phone] Reason for Visit * Reason Onset Date Comments Faxed Refill 11/04/2021 Encounter Details Date Type Department Care Team Description 11/04/2021 Refill Internal Medicine - [address], [address] [place] [address] Bahman Corrales MD [address] [place] [address] Faxed Refill Social History Tobacco Use Types [...] * Telephone Encounter - Court Person - 11/04/2021 3:36 PM EDT No visits with results within 3 Month(s) from this visit. Latest known visit with results is: Orders Only on 06/19/2021 Component Date Value ??? VITAMIN B12 06/19/2021 183 (A) * Telephone Encounter - Vidhi Figueroa - 11/04/2021 3:14 PM EDT Patient would like script to be: E-PRESCRIBED/FAXED TO PHARMACY WHEN WAS THE PATIENT'S LAST APPOINTMENT IN ADULT MEDICINE? 06/25/21 WHEN WAS THE LAST TIME THE PATIENT SAW THEIR PCP? Same as above Does patient have an upcoming appointment? Yes 11/26/21 (THE MEDICATION REQUESTED IS ON THE MED LIST ABOVE) All of the medications requested were on the CURRENT MEDS list Did you check the Pharmacy information above?: YES Patient wants: 30 -day supply Is this a mail order prescription request ? NO If the refill is from a FAXED refill request what is the RX # listed on the fax? [id number] Patients current insurance carrier is: [place] / [place] / Product Type: MEDICARE [id number] documented in this encounter Plan of Treatment Not on file documented as of this encounter Visit Diagnoses Not on filedocumented in this encounter Care Teams Bank Secrecy Act Officer Relationship Specialty Start Date End Date Bahman Corrales MD [address] [place] [address] PCP - General Internal Medicine 09/03/18 documented as of this encounter
--- OUTSIDE RECORDS SUMMARY | 2024-12-21 12:17 | XMS_ITS | Encounter Summary ---
Author Organization [facility] Address [address] [place] [address] Care Team Providers Care Field Operations Farm Manager Name Role Phone Bahman Corrales MD Primary Care Provider [phone] Reason for Visit * Reason Comments E-prescribe Rx Request Encounter Details Date Type Department Care Team Description 07/06/2021 Refill Internal Medicine - [address], [address] [place] [address] Bahman Corrales MD [address] [place] [address] E-prescribe Rx Request Social History Tobacco Use [...] have Coronavirus / COVID-19? No / Unsure 06/25/2021 8:22 AM EST documented as of this encounter Miscellaneous Notes * Telephone Encounter - Court Person - 07/15/2021 11:37 AM EST Orders Only on 06/19/2021 Component Date Value ??? VITAMIN B12 06/19/2021 183* Orders Only on 06/19/2021 Component Date Value ??? # RETICULOCYTE COUNT 06/19/2021 TNP Orders Only on 06/19/2021 Component Date Value ??? GLUCOSE 06/19/2021 167* ??? Blood Urea Nitrogen 06/19/2021 25 ??? CREAT 06/19/2021 1.65* ??? GLOMERULAR FILTRATION RA* 06/19/2021 41 ??? NA 06/19/2021 136 ??? K 06/19/2021 5.2 ??? CL 06/19/2021 106 ??? CARBON DIOXIDE (CO2) 06/19/2021 24 ??? ANION GAP 06/19/2021 6 ??? CALCIUM 06/19/2021 9.8 ??? TOTAL PROTEIN (TP) 06/19/2021 7.0 ??? Albumin 06/19/2021 3.8 ??? BILIRUBIN TOTAL 06/19/2021 0.8 ??? SGOT 06/19/2021 22 ??? SGPT 06/19/2021 34 ??? ALK PHOS 06/19/2021 68 ??? WHITE BLOOD COUNT 06/19/2021 6.5 ??? RED BLOOD COUNT 06/19/2021 4.1* ??? Hemoglobin 06/19/2021 12.3* ??? Hematocrit 06/19/2021 38.5* ??? MEAN CORPUSCULAR VOLUME 06/19/2021 95.1 ??? MEAN CORPUSCULAR HEMOGLO* 06/19/2021 30.4 ??? MEAN CORPUSCULAR HGB CONC 06/19/2021 31.9* ??? RED CELL DISTRIBUTION WI* 06/19/2021 12.8 ??? PLT COUNT 06/19/2021 179 ??? MEAN PLATELET VOLUME 06/19/2021 10.3 ??? NRBC % AUTO 06/19/2021 0.0 ??? NEUTROPHILS % 06/19/2021 71.2 ??? LYMPH % 06/19/2021 14.7 ??? MONO % 06/19/2021 9.4 ??? EOS % 06/19/2021 3.9 ??? BASO % 06/19/2021 0.5 ??? IMMATURE GRANULOCYTES % 06/19/2021 0.3 ??? NRBC # AUTO 06/19/2021 0.00 ??? NEUT # 06/19/2021 4.60 ??? LYMPH # 06/19/2021 0.95* ??? MONO # 06/19/2021 0.61 ??? EOS # 06/19/2021 0.25 ??? BASO # 06/19/2021 0.03 ??? IMMATURE GRANULOCYTES # 06/19/2021 0.02 ??? TSH CASCADE 06/19/2021 1.48 ??? Cholesterol 06/19/2021 108 ??? TRIGLYCERIDES 06/19/2021 193* ??? HDL CHOLESTEROL 06/19/2021 38* ??? LDL CALCULATED 06/19/2021 32 ??? TC-HDLC RATIO 06/19/2021 2.8 ??? GLYCATED HEMOGLOBIN A1C 06/19/2021 6.9* ??? ESTIMATED AVERAGE GLUCOSE 06/19/2021 151 * Telephone Encounter - Vidhi Carolina - 07/15/2021 11:36 AM EST Pirncess 06/25/21 documented in this encounter Plan of Treatment Not on file documented as of this encounter Visit Diagnoses Not on filedocumented in this encounter Care Teams Field Operations Farm Manager Relationship Specialty Start Date End Date Bahman Corrales MD [address] [place], [place] [phone] PCP - General Internal Medicine 09/03/18 documented as of this encounter
--- OUTSIDE RECORDS SUMMARY | 2024-12-21 12:17 | XMS_ITS | Encounter Summary ---
Author Organization [facility] Address [address] [place] [address] Care Team Providers Care Stone Polisher Machine Name Role Phone Israel Medel MD Primary Care Provider Bahman Guerra MD Primary Care Provider [phone] Reason for Visit * Reason Onset Date Comments refill request 07/22/2018 Encounter Details Date Type Department Care Team Description 07/22/2018 Refill Adult Med - [place] [address] [place] [address] Israel Medel MD refill request Social History Tobacco Use Types Packs/Day Years Used Date Smoking Tobacco: Former Cigarettes 0.5 15 Q uit: 06/09/1980 Smokeless Tobacco: Never Sex Assigned at Date Recorded Male 03/06/2021 9:27 AM E DT Job Start Date Occupation Industry Not on file Not on file Not on file documented as of this encounter Miscellaneous Notes * Telephone Encounter - Jackie Williamson L.P.N. - 07/22/2018 3:26 PM EST Last ov 01 25 18 No follow up Refill metformin documented in this encounter Plan of Treatment Not on file documented as of this encounter Visit Diagnoses Not on filedocumented in this encounter Care Teams Stone Polisher Machine Relationship Specialty Start Date End Date Israel Medel MD PCP - General Internal Medicine 05/29/18 09/02/18 Bahman Corrales MD [address] [place] [address] PCP - General Internal Medicine 09/03/18 documented as of this encounter
--- OUTSIDE RECORDS SUMMARY | 2024-12-21 12:17 | XMS_ITS | Encounter Summary ---
Author Organization [facility] Address [address] [place] [address] Phone Care Team Providers Care Loom Stop Checker Name Role Phone Bahman Corrales MD Primary Care Provider [phone] Encounter Details Date Type Department Care Team (Late st Contact Info) Description 06/02/2022 Telephone [facility] [address] [place] [phone] Shashank Herrera MD Social History Tobacco Use [...] to help. Please call him back at [phone] Thank you documented in this encounter Plan of Treatment Not on file documented as of this encounter Visit Diagnoses Not on filedocumented in this encounter Care Teams Loom Stop Checker Relationship Specialty Start Date End Date Bahman Corrales MD [address] [place] [address] PCP - General Internal Medicine 03/05/21 documented as of this encounter
--- OUTSIDE RECORDS SUMMARY | 2024-12-21 12:17 | XMS_ITS | Encounter Summary ---
Author [facility] Address [address] [place] [address] Care Team Providers Care Yacht Rigger Name Role Phone Bahman Corrales MD Primary Care Provider [phone] Reason for Visit * Reason Onset Date Comments DME Request 01/08/2022 Encounter Details Date Type Department Care Team Description 01/08/2022 Telephone Internal Medicine - [address], [address] [place] [address] Bahman Corrales MD [address] [place] [address] DME Request Social History Tobacco Use Types Packs/Day [...] encounter Miscellaneous Notes * Telephone Encounter - Deidra Roberts - 01/08/2022 10:05 AM EDT Name of Product: One touch verio Reflect metor Specific information about product N/A # Needed 1 Reason patient is asking for this supply? Diabetes Have you received this supply before? If yes , when?: yes - 4 years ago Have you discussed the need for this supply with a provider at a recent visit? NO If yes, with who and when? N/A When completed: Fax to other office/MD at fax # [address] Have you told the patient it will take 7-10 days for completion of this request? YES documented in this encounter Plan of Treatment Not on file documented as of this encounter Visit Diagnoses Not on filedocumented in this encounter Care Teams Yacht Rigger Relationship Specialty Start Date End Date Bahman Corrales MD [address] [place] [address] PCP - General Internal Medicine 09/03/18 documented as of this encounter
--- OUTSIDE RECORDS SUMMARY | 2024-12-21 12:17 | XMS_ITS | Encounter Summary ---
Author Organization [facility] Address [address] [place] [address] Care Team Providers Care Commuter Pilot Name Role Phone Bahman Corrales MD Primary Care Provider [phone] Reason for Visit * Reason Onset Date Comments Faxed Refill 06/24/2022 Encounter Details Date Type Department Care Team Description 06/24/2022 Refill Internal Medicine - [address], [address] [place] [address] Bahman Corrales MD [address] [place] [address] Faxed Refill Social History Tobacco Use Types [...] * Telephone Encounter - Court Person - 06/24/2022 9:52 AM EST No visits with results within 1 Month(s) from this visit. Latest known visit with results is: Orders Only on 11/15/2021 Component Date Value ??? GLYCATED HEMOGLOBIN A1C 11/15/2021 6.9 (H) ??? ESTIMATED AVERAGE GLUCOSE 11/15/2021 151 ??? Cholesterol 11/15/2021 105 ??? TRIGLYCERIDES 11/15/2021 193 (H) ??? HDL CHOLESTEROL 11/15/2021 34 (L) ??? LDL CALCULATED 11/15/2021 33 ??? TC-HDLC RATIO 11/15/2021 3.1 ??? TSH CASCADE 11/15/2021 2.23 ??? WHITE BLOOD COUNT 11/15/2021 6.5 ??? RED BLOOD COUNT 11/15/2021 4.1 (L) ??? Hemoglobin 11/15/2021 12.7 (L) ??? Hematocrit 11/15/2021 38.5 (L) ??? MEAN CORPUSCULAR VOLUME 11/15/2021 94.6 ??? MEAN CORPUSCULAR HEMOGLO* 11/15/2021 31.2 ??? MEAN CORPUSCULAR HGB CONC 11/15/2021 33.0 ??? RED CELL DISTRIBUTION WI* 11/15/2021 13.2 ??? PLT COUNT 11/15/2021 198 ??? MEAN PLATELET VOLUME 11/15/2021 10.1 ??? NRBC % AUTO 11/15/2021 0.0 ??? NEUTROPHILS % 11/15/2021 69.8 ??? LYMPH % 11/15/2021 18.1 ??? MONO % 11/15/2021 7.8 ??? EOS % 11/15/2021 3.5 ??? BASO % 11/15/2021 0.3 ??? IMMATURE GRANULOCYTES % 11/15/2021 0.5 ??? NRBC # AUTO 11/15/2021 0.00 ??? NEUT # 11/15/2021 4.55 ??? LYMPH # 11/15/2021 1.18 ??? MONO # 11/15/2021 0.51 ??? EOS # 11/15/2021 0.23 ??? BASO # 11/15/2021 0.02 ??? IMMATURE GRANULOCYTES # 11/15/2021 0.03 ??? GLUCOSE 11/15/2021 149 (H) ??? Blood Urea Nitrogen 11/15/2021 35 (H) ??? CREAT 11/15/2021 1.88 (H) ??? GLOMERULAR FILTRATION RA* 11/15/2021 35 ??? NA 11/15/2021 137 ??? K 11/15/2021 5.5 ??? CL 11/15/2021 105 ??? CARBON DIOXIDE (CO2) 11/15/2021 22 ??? ANION GAP 11/15/2021 10 ??? CALCIUM 11/15/2021 9.8 ??? Albumin 11/15/2021 3.9 ??? SGPT 11/15/2021 28 ??? TOTAL PROTEIN (TP) 11/15/2021 7.2 ??? BILIRUBIN TOTAL 11/15/2021 0.6 ??? SGOT 11/15/2021 16 ??? ALK PHOS 11/15/2021 74 ??? # RETICULOCYTE COUNT 11/15/2021 0.06 ??? % RETICULOCYTE COUNT 11/15/2021 1.5 ??? IMMATURE RETIC FRACTION 11/15/2021 28.2 (H) ??? RETIC HGB EQUIVALENT 11/15/2021 33.8 ??? VITAMIN B12 11/15/2021 777 * Telephone Encounter - Cruz Whitman - 06/24/2022 8:51 AM EST [place] 04/28/2022 NOV 09/29/2022 documented in this encounter Plan of Treatment Not on file documented as of this encounter Visit Diagnoses Not on filedocumented in this encounter Care Teams Commuter Pilot Relationship Specialty Start Date End Date Bahman Corrales MD [address] [place] [address] PCP - General Internal Medicine 09/03/18 documented as of this encounter
--- OUTSIDE RECORDS SUMMARY | 2024-12-21 12:17 | XMS_ITS | Encounter Summary ---
Author Organization [facility] Address [address] [place] [address] Care Team Providers Care Cyber Defense Forensics Analyst Name Role Phone Bahman Corrales MD Primary Care Provider [phone] Reason for Visit * Reason Onset Date Comments medication problems 08/23/2021 Encounter Details Date Type Department Care Team Description 08/23/2021 Telephone Internal Medicine - [address], [address] [place] [address] Bahman Corrales MD [address] [place] [address] medication problems Social History Tobacco Use Types Packs/Day Years [...] Telephone Encounter - Reena Adams M.A. - 08/23/2021 2:23 PM EST Pended for dr corrales to send to pharmacy with ICD-Code * Telephone Encounter - Jil Landaverde - 08/23/2021 12:37 PM EST [facility] send these medication need ICD 10 code must be on script for diabetic supplies OneTouch Verio strip Lancets (OneTouch Delica Plus [id number]) Misc documented in this encounter Plan of Treatment Not on file documented as of this encounter Visit Diagnoses Not on filedocumented in this encounter Care Teams Cyber Defense Forensics Analyst Relationship Specialty Start Date End Date Bahman Corrales MD [address] [place] [address] PCP - General Internal Medicine 09/03/18 documented as of this encounter
--- OUTSIDE RECORDS SUMMARY | 2024-12-21 12:17 | XMS_ITS | Clinical Summary ---
Author Organization [facility] Address [address] [place] [address] Phone Care Team Providers Care E Commerce Developer Name Role Phone Bahman Corrales MD Primary Care Provider [phone] Allergies Active Allergy Reactions Criticality Noted Date [...] 04/10/2021 Overview (04/10/2021): cardiology Dr. Peguero at [facility] Obese class I 04/10/2021 08/20/2021 Type 2 [...] age to complete this topic Insurance Medicare [facility] Medicare [facility] Care Teams E Commerce Developer Relationship Specialty Start Date End Date Bahman Corrales MD [address] [place] [address] PCP - General Internal Medicine 03/05/21
--- OUTSIDE RECORDS SUMMARY | 2024-12-21 12:17 | XMS_ITS | Encounter Summary ---
Author Organization [facility] Address [address] [place] [address] Care Team Providers Care Singing Teacher Name Role Phone Israel Medel MD Primary Care Provider Bahman Guerra MD Primary Care Provider [phone] Reason for Referral * Non MARLI (Routine) - Authorized/Booked Specialty Diagnoses / Procedures Referred By Salvatore daniel Referred To Contact Podiatry Procedures REFERRAL TO PODIATRY Israel Medel MD [address] [place] [address] Pod/[place] [address] [place] [id number] Referral ID Status Reason Start Date Expiration Date V isits Requested Visits Authorized [id number] Authorized/B ooked 06/17/2018 06/17/2019 1 1 Reason for Visit * Reason Onset Date Comments TEST RESULTS 06/14/2018 Encounter Details Date Type Department Care Team Description 06/14/2018 Telephone Adult [facility] [address] [place] [address] Israel Medel MD TEST RESULTS Social History Tobacco Use Types Packs/Day Years Used Date Smoking Tobacco: Former Cigarettes 0.5 15 Q uit: 06/09/1980 Smokeless Tobacco: Never Sex Assigned at Date Recorded Male 03/06/2021 9:27 AM E DT Job Start Date Occupation Industry Not on file Not on file Not on file documented as of this encounter Miscellaneous Notes * Telephone Encounter - Israel Medel MD - 06/17/2018 9:34 AM EST Podiatry consult sent (internal; [place]) * Telephone Encounter - Jackie MckenzieP.N. - 06/17/2018 9:12 AM EST Pt made aware of xray foot results would like appt for podiatry please enter referral thanks Dr Israel Medel * Telephone Encounter - Israel Medel MD - 06/17/2018 6:54 AM EST Please call Mr. Dudley (I was wrong. His Xray is on my desk!!) It only shows a small heel spur. If pain persists or progresses, please call us and We'll send him to lacquer mixer * Telephone Encounter - Israel Medel MD - 06/17/2018 6:23 AM EST Don't see Xray report (was supposed to be on my desk?) * Telephone Encounter - Jackie MckenzieP.NAna M - 06/16/2018 11:37 AM EST Xray on your desk new orders? Thanks Merlene JEFF * Telephone Encounter - Israel Medel MD - 06/15/2018 7:14 AM EST Has Mr Dudley's Xray been scanned into EMR? * Telephone Encounter - Giovanni Brooke M.A. - 06/14/2018 2:04 PM EST Please Advise: Pt. Is requesting x ray right foot results. * Telephone Encounter - Kandi Swan - 06/14/2018 11:48 AM EST Inform patient: ANY URGENT OR ABNORMAL RESULTS WIILL RESULT IN A CALL BACK TO THE PATIENT CRISTIAN. Type of test: : xray rt foot Date test was performed: 06/09/18 Where was the test performed: [address] [place] [address] Who ordered this test?: Dr. Medel Is the doctor here today?: NO Can the message wait until the doctor returns?: YES IF PATIENT'S PCP IS NOT IN INSTRUCT PATIENT THAT THEY WILL RECEIVE A CALL BACK WHEN THE PCP IS IN THE OFFICE NEXT. documented in this encounter Plan of Treatment Not on file documented as of this encounter Visit Diagnoses Not on filedocumented in this encounter Care Teams Singing Teacher Relationship Specialty Start Date End Date Israel Medel MD PCP - General Internal Medicine 05/29/18 09/02/18 Bahman Corrales MD [address] [place] [address] PCP - General Internal Medicine 09/03/18 documented as of this encounter
--- OUTSIDE RECORDS SUMMARY | 2024-12-21 12:17 | XMS_ITS | Encounter Summary ---
Author Organization [employer] [facility] Address [address] [place] [address] Care Team Providers Care Criminal Investigator Customs Name Role Phone Bahman Corrales MD Primary Care Provider [phone] Encounter Details Date Type Department Care Team Description 06/26/2021 Orders Only Internal Medicine - [address], [address] [place] [address] Bahman Corrales MD [address] [place] [address] Social History Tobacco Use Types Packs/Day Years [...] on filedocumented in this encounter Care Teams Criminal Investigator Customs Relationship Specialty Start Date End Date Bahman Corrales MD [address] [place], [place] [id number] PCP - General Internal Medicine 09/03/18 documented as of this encounter
--- OUTSIDE RECORDS SUMMARY | 2024-12-21 12:17 | XMS_ITS | Encounter Summary ---
Author Organization [facility] Address [address] [place] [address] Care Team Providers Care Management Instructor Name Role Phone Bahman Corrales MD Primary Care Provider [phone] Encounter Details Date Type Department Care Team Description 12/18/2021 Speech Language Assistant Report Medical Records [address] [place] [address] Shashank Herrera MD Social History Tobacco Use [...] suspected to have Coronavirus/COVID-19? No / Unsure 11/26/2021 9:24 AM EDT documented as of this encounter Plan of Treatment Not on file documented as of this encounter Visit Diagnoses Not on filedocumented in this encounter Care Teams Management Instructor Relationship Specialty Start Date End Date Bahman Corrales MD [address] [place] [address] PCP - General Internal Medicine 09/03/18 documented as of this encounter
[2024-12-21 18:22] LABS: Appearance Urine Cloudy; Color Urine Dark Yellow; Glucose Urine UA Negative (Negative); Leukocyte Esterase Urine Negative (Negative); Nitrite Urine Negative (Negative); Urine Blood Negative (Negative); Urine Ketones Negative (Negative); Urine Protein Negative (Neg-Trace)
[2024-12-21 18:27] LABS: Hemoglobin 11.5 g/dl (14.0-18.0); Mean Corpuscular HGB Conc 32.9 g/dl (31.0-36.0); Mean Corpuscular Hemoglobin 30.5 pg (27.0-33.0); Mean Corpuscular Volume 92.8 fL (80.0-98.0); Mean Platelet Volume 9.5 fL (9.4-12.4); Platelet Count 209 X10*3/uL (160-400); Red Blood Count 3.77 X10*6/uL (4.60-5.80); Red Cell Distribution Width 14.1 % (11.0-16.0); White Blood Count 5.3 X10*3/uL (4.8-10.8)
[2024-12-21 18:33] LABS: Anion Gap 14 (12-20); Blood Urea Nitrogen 30 mg/dL (9-16); Calcium 9.4 mg/dL (8.4-10.2); Carbon Dioxide 21 mmol/L (22-29); Chloride 106 mmol/L (96-108); Estimated Glomerular Filt Rate 45; Glucose Random 251 mg/dL (60-115); Potassium 4.4 mmol/L (3.3-5.1); Sodium 137 mmol/L (135-145)
[2024-12-21 18:57] LABS: Creatinine Urine 124.31 mg/dL; Total Protein Urine Random < 7 mg/dL (<12)
[2024-12-21 19:06] LABS: Parathyroid Hormone Intact 101.5 pg/mL (8.7-77.1)
== END 2024-12-21 10:47 | disposition home or self-care (01) ==
LOC: HO.HKASLDS 10:46
PROVIDERS: PCP Internal Medicine; Visit Provider Internal Medicine Hypertension Specialist
DX: N18.30 Chronic kidney disease, stage 3 unspecified (principal); C61 Malignant neoplasm of prostate
CPT/HCPCS: 36415; 80048; 81003; 82570; 83970; 84156; 85027; 99212

== ENCOUNTER 2024-12-21 10:46 | Outpatient (AMB) | payer MEDICARE, SELFPAY ==
[2024-12-21 10:53] VITALS: BP 128/70; PULSE 71; O2SAT 96; BMI 34.4
--- NOTE | 2024-12-21 10:53 | HO.NEPHOV ---
Vital Signs 12/21/24 10:53 Height 5 ft 9 in Weight 233 lb BMI 34.4 BP 128/70 Blood Pressure Location Lt brachial Position Sitting Pulse 71 Pulse Source Pulse Oximeter Pulse Oximetry (%) 96 Oxygen Delivery Method Room Air Intake Visit Reasons: December appt w/ labs/ CKD Conf Optician Apprentice Required: No Accompanied by: Self / Same As Patient Allergies insulin glargine Allergy (Verified 12/21/24 10:55) Unknown Penicillins Allergy (Verified 12/21/24 10:55) Unknown Medication List - Last Reconciled 12/21/24 by Shashank Herrera MD atorvastatin 80 mg PO DAILY cholecalciferol (vitamin D3) 25 mcg PO DAILY cyanocobalamin (vitamin B-12) 1,000 mcg PO DAILY dutasteride mg PO .every other day fluticasone propionate 50 mcg/actuation sprays intranasal PRN glipizide 5 mg PO BID insulin aspart (niacinamide) 100 unit/mL (3 mL) (Fiasp FlexTouch U-100 Insulin) subcut TID insulin aspart U-100 (Novolog FlexPen U-100 Insulin aspart) subcut leuprolide mesylate (6 month) (Camcevi (6 month)) 42 mg subcut [id number] metoprolol tartrate 50 mg PO BID omeprazole 20 mg PO DAILY PRN vitamin B complex (Vitamins B Complex tablet) 1 tab PO DAILY HPI Comments Details: Ignacio is 78-year-old man with a history of hypertension for more than 15 years and diabetes mellitus for more than 5 years. He was on metformin and glipizide. Metformin was discontinued due to CKD. 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 Interstitial fibrosis with tubular atrophy with moderate to severe arterial/arteriolar sclerosis He has been diagnosed with prostate cancer and currently underwent radiation therapy . Now on Leuprolide SQ q 6 month c/o Fatigue Has gained about 15 lbs 12/21/24 79-year-old male presenting with routine concerns and management of chronic conditions, including anemia and fatigue. He has witnessed a weight increase of 13 pounds over six months, which he attributes to testosterone blockers. He experiences fatigue, with a hemoglobin level at 11.4 g/dL and feels drained during mild exertion, such as mowing the grass. 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 No current pain is reported, and measures are taken against constipation. , evidenced by an A1c of 6.5%. Testosterone deficiency is acknowledged with a level of 0, potentially explaining energy deficits. His kidney function, with creatinine at 1.58 mg/dL, shows improvement compared to previous readings. [facility] Medical History (Updated 08/12/23 @ 10:59 by Shashank Herrera MD) Prostate cancer Hypertension CKD (chronic kidney disease) Surgical History H/O eye surgery History of coronary artery stent placement H/O angioplasty Family History Father Diabetes Throat cancer Social History Alcohol intake: never Patient Tobacco Use Status: Never used Tobacco Physical Exam Vital Signs: Last Vital Signs Pulse 71 12/21/24 10:53 BP 128/70 12/21/24 10:53 Pulse Ox 96 12/21/24 10:53 Oxygen Delivery Method Room Air 12/21/24 10:53 BMI result Body Mass Index 34.4 Const General: comfortable Nutritional Appearance: well nourished Orientation/consciousness: patient oriented x3 HEENT Head: No normal to inspection Mouth: moist mucous membranes Neck Neck: Yes supple and Yes no JVD Resp Auscultation: clear to auscultation bilaterally and no rales Cardio Jugular venous distension: no JVD Palpation: no palpable S3 and no palpable S4 Heart sounds: no rubs GI Palpation (GI): Soft to palpation and nontender Percussion: No Fluid wave present General: Yes no CVA tenderness Back/Spine/Pelvis Back: no CVA tenderness Skin General skin exam: no rashes or lesions noted Neuro General: patient oriented x3 Extrem General: Yes no pedal edema and No clubbing Results Reviewed Results Reviewed: Cr .1.58 Nephrology Results: No Data to Display Assessment & Plan Assessment & Plan (1) CKD (chronic kidney disease) stage 3, GFR 30-59 ml/min: Code(s): N18.30 - Chronic kidney disease, stage 3 unspecified Category: Medical (2) Prostate cancer: Code(s): C61 - Malignant neoplasm of prostate Category: Medical Plan Ignacio has CKD 3 in the setting of longstanding hypertension and diabetes mellitus. He has no significant proteinuria. Kidney biopsy revealed focal segmental mesangial nodular expansion with the interstitial fibrosis and tubular atrophy along with moderate to severe arterial and arteriolar sclerosis. At present renal function close to baseline at 1.6. Goal is to slow the progression renal disease. Continue to avoid nephrotoxic agents including NSAIDs. At present blood pressure is well controlled at this time. Maintain hemoglobin A1c less than 7% Mild elevation in PTH He has secondary hyperparathyroidism due to CKD. I will continue to monitor serum calcium phosphorus and PTH and start on vitamin D3 analogues as indicated. Follow PTH/Vit D levels Low BP Resolved after stopping Lisinopril 5 mg QD Currently BP is acceptable Fatigue Due to testosterone antagonist HCT is stable. - Monitor weight and report any significant changes. - Continue current insulin regimen; maintain regular blood sugar checks. - Follow advice on increasing dietary iron intake with foods like spinach and liver. - Use stool softeners as needed to prevent constipation. - Monitor for unusual fatigue or changes and report accordingly. - Schedule follow-up in six months unless symptoms necessitate an earlier visit. Orders: Orders Parathyroid Hormone Intact Today N18.30 - Chronic kidney disease, stage 3 unspecified UA and rflx microscopic Today N18.30 - Chronic kidney disease, stage 3 unspecified Creatinine Urine Today N18.30 - Chronic kidney disease, stage 3 unspecified Basic Metabolic Panel 6 Months N18.30 - Chronic kidney disease, stage 3 unspecified Complete Blood Count no Diff 6 Months N18.30 - Chronic kidney disease, stage 3 unspecified Total Protein Urine Random Today N18.30 - Chronic kidney disease, stage 3 unspecified Coding Level of Care Code Est Pt Level 4 (06193) Diagnoses CKD (chronic kidney disease) stage 3, GFR 30-59 ml/min N18.30 Prostate cancer C61
--- OUTSIDE RECORDS SUMMARY | 2024-12-21 11:49 | XMS_ITS | Encounter Summary ---
Author Organization [facility] Address [address] [place] [address] Phone Care Team Providers Care Ethylbenzene Cracking Supervisor Name Role Phone Bahman Corrales MD Primary Care Provider [phone] Encounter Details Date Type Department Care Team (Late st Contact Info) Description 01/19/2023 Telephone [facility] [address] [place] [id number] Lindsey Neely Social History Tobacco Use Types Packs/Day Years Used Date Smoking Tobacco: Former Cigarettes 1 19 0 01/08/1963 - 01/08/1982 Smokeless Tobacco: Never Comments:exact dates of use approximates Alcohol Use Standard Drinks/Week Comments Not Currently 0 (1 standard drink = 0.6 oz pur e alcohol) no alcohol in several years Sex and Gender Information Value Date Recorded Sex Assigned at Not on file Legal Sex Male 3:16 PM EDT Gender Identity Not on file Sexual Orientation Not on file documented as of this encounter Miscellaneous Notes * Telephone Encounter - Lindsey Neely - 01/19/2023 10:18 AM EDT Pt had a renal biopsy recently, he is looking for the results of this test so that he can use this for his upcoming appointment with another provider on 01/29/23. documented in this encounter Plan of Treatment Not on file documented as of this encounter Visit Diagnoses Not on filedocumented in this encounter Care Teams Ethylbenzene Cracking Supervisor Relationship Specialty Start Date End Date Bahman Corrales MD [address] [place] [address] PCP - General Internal Medicine 03/05/21 documented as of this encounter
--- OUTSIDE RECORDS SUMMARY | 2024-12-21 11:49 | XMS_ITS | Data Portability ---
Author Organization [facility], [address] Address [address] [place] [address] Care Team Providers Care Medical Chief Technician Name Role Phone MERCEDES JOHNSON Primary Care Provider [phone] Assessment No assessment recorded. Plan of Treatment Reminders Order Date Submit Date Provider Last Modified By Organization Details Last Modified Time Details Appointments None recorded. Lab rapid flu (A+B) 2022 [email or web address] [facility] [address], [address] [place], [address], 3 14:19:19 SARS CoV 2 (COVID-19) Ag, QL, IA, upper respiratory specimen 2022 023 [email or web address] [facility] [address], [address] [place], [address], 3 14:19:20 Referral None recorded. Procedures None recorded. Surgeries None recorded. Imaging XR, chest, 2 view 2022 023 [email or web address] [facility], [address] [place] [address], [address], 3 15:01:09 Medication Orders doxycycline hyclate 100 mg tablet 2022 023 [email or web address] [facility], [address] [place], [address], 3 14:57:51 ipratropium bromide 42 mcg (0.06 %) nasal spray 2022 023 [facility], [address] [place], [address], 3 14:20:25 Tessalon Perles 100 mg capsule 2022 023 [facility], [address] [place], [address], 3 14:20:23 doxycycline hyclate 100 mg capsule 2022 023 [facility], [address] [place], [address], 11:44:09 Patient TargetsNo targets recorded. Patient Instructions Encounter Date Encounter Id Patient Instructions Last Modified By Organization Details Last Modified Time 01/04/2023 [id number] Sinusitis is an infection of the lining of the sinus cavities in your head. Sinusitis often follows a cold. It causes pain and pressure in your head and face. In most cases, sinusitis gets better on its own in 1 to 2 weeks. But some mild symptoms may last for several weeks. Sometimes antibiotics are needed. if you are having problems. It's also a good idea to know your test results and keep a list of the medicines you take. How can you care for yourself at home? Take an enor-leq-xyjkkfx pain medicine. Avoid Ibuprofen, Aleve and Aspirin if . If the doctor prescribed antibiotics, take them as directed. Do not stop taking them just because you feel better. You need to take the full course of antibiotics. Be careful when taking wcde-wmn-dbwwuyo cold or influenza (flu) medicines and Tylenol at the same time. Many of these medicines have acetaminophen, which is Tylenol. Read the labels to make sure that you are not taking more than the recommended dose. Too much acetaminophen (Tylenol) can be harmful. Breathe warm, moist air from a steamy shower, a hot bath, or a sink filled with hot water. Avoid cold, dry air. Using a humidifier in your home may help. Follow the directions for cleaning the machine. Use saline (saltwater) nasal washes. This can help keep your nasal passages open and wash out mucus and bacteria. You can buy saline nose drops at a grocery store or drugstore. Or you can make your own at home by adding 1 teaspoon (5 millilitres) of salt and 1 teaspoon (5 millilitres) of baking soda to 2 cups (500 mL) of distilled water. If you make your own, fill a bulb syringe with the solution, insert the tip into your nostril, and squeeze gently. Blow your nose. Put a hot, wet towel or a warm gel pack on your face 3 or 4 times a day for 5 to 10 minutes each time. Try a decongestant nasal spray like oxymetazoline (Drixoral). Do not use it for more than 3 days in a row. Using it for more than 3 days can make your congestion worse. [email or web address] Not available 01/04/2023 11:44:04 03/05/2023 [id number] sinusitis Not available 03/05 14:20:21 cough: care instructions Not available 03/05/2023 14:19:18 Based on your presentation and exam, you are being diagnosed with Sinusitis. Rhinosinusitis is most often viral and will resolve on its own in 7-10 days. Symptoms that last longer than 2 weeks an antibiotic could be considered. Based on your presentation, and antibiotic was written. The following are my recommendations to help your symptoms and to allow your condition to improve: 1. Drink plenty of fluids while you are ill- stay hydrated 2. Rest - don't overexert yourself - this includes sports and any gym routines. 3. I suggest taking an antihistamine - like Claritin, Zyrtec, or Benedryl 4. If you take OTC cold medication I would recommend Yanet-Selzer Cold/Cough. 5. Mucinex with a lot of water is ok - if you are having trouble clearing your nasal passages of mucous. However, if you start to cough then discontinue - this can increase coughing due to a watery post nasal drip. 6. Saline Nasal Spiceland is recommended. Since an antibiotic was prescribed you need to complete the full course - this is important so you don't develop any antibiotic resistance to future infections. I advise taking a Probiotic like Florastor since you are on an antibiotic - this will help you re-colonize your body with the good bacteria. Typically, it will take 6 months for you to restore your normal body km after an antibiotic. Don't hesitate to be seen again if you develop: 1. Fever > 100.5 2. Worsening Headache 3. Stiff Neck 4. Worsening Cough or Shortness of breath 5. Visual Changes. The antibiotic should start to work in 4-5 days. You may not notice immediate response. Thank you for using [facility] today, please feel free to contact our office if you have any questions or concerns. [email or web address] Not available 03/05/2023 14:20:37 Reason for Referral None Reported. Results Created Date Observation Date Name Description Value Unit Range Abnormal Flag Note LastModifiedBy Organization Detail LastModifiedTime 03/05/20 23 03/05/2023 SARS CoV 2 (COVI D-19) Ag, QL, IA, upper respi rator y speci men Unknown Analyte negati ve Not Available [facility] [address] [place], [address], 03/05/2023 14:13:54 03/05/20 23 03/05/2023 SARS CoV 2 (COVI D-19) Ag, QL, IA, upper respi rator y speci men Unknown Analyte negati ve Not Available [facility] [address] [place], [address], 03/05/2023 14:13:54 03/05/20 23 03/05/2023 SARS CoV 2 (COVI D-19) Ag, QL, IA, upper respi rator y speci men Unknown Analyte yes Not Available [id number] [place] [address] [address] [place], [address], 03/05/2023 14:13:54 03/05/20 23 03/05/2023 rapid flu (A+B) Unknown Analyte negati ve Not Available [address] [address] [place], [address], 03/05/2023 14:13:27 03/05/20 23 03/05/2023 rapid flu (A+B) Unknown Analyte negati ve Not Available [address] [facility] [place], [address], 03/05/2023 14:13:27 03/05/20 23 03/05/2023 rapid flu (A+B) Unknown Analyte Negati ve Not Available [address] [facility] [address] [place], [address], 03/05/2023 14:13:03/05/20 23 03/05/2023 rapid flu (A+B) Unknown Analyte Yes Not Available [facility] [address] [place], [address], 03/05/2023 14:13:27 03/05/20 23 03/05/2023 XR, chest , 2 view No observ ation record ed. [facility] [address] [facility], [place], [address], 03/05/2023 16:14:17 Result Notes None recorded. Problems Name Problem SNOMED Code Status Onset Date Resolution Date Notes Provider Name and Address Organization Details Recorded Time Diabetes mellitus 49038098 Active BERNARDO GARRISON RA null, PA - [facility] 11:19:37 Hypertensive disorder 22356707 Active BERNARDO GARRISON RA null, PA - [facility] 11:19:47 Hypercholestero lemia 69190392 Active BERNARDO GARRISON RA null, PA - [facility] 11:19:55 Problem Notes None recorded. Procedures Surgical History Date Name Laterality Status Provider Name and Address Organization Details Recorded Time placement of stent in cardiac conduit completed BERNARDO MONTAÑO PA - [facility] 01/04/2023 11:20:55 vitrectomy completed Kathy Millard PA - [facility] 03/05/2023 13:53:45 Imaging Results Imaging Date Name Status LastModified by Organiz ation Details LastModified Time 03/05/2023 XR, chest, 2 view completed [facility] [address] [facility] [place], [address], 03/05/2023 16:14:17 Procedure Notes None recorded. Medical Equipment None Reported. Allergies Allergen ID Allergen Name Allergen Category Reaction Reaction Severity Criticality Documentation Date Start Date Code Code System Note Provider Name and Address Organization Details Recorded Time 455095 Product containin g penicilli n (product) medicatio n hives Not available Not available 01/04/2023 41580 8001 SNOMED GYPSY Macias RA - [facility] 3 11:17:30 Medications Name Sig Start Date Stop Date Status Note LastModified by Organization Details LastModified Time atorvastati n 80 mg tablet active Not Available Not Available Not Available prednisone 10 mg tablet 01/04 completed Not Available Not Available Not Available doxycycline hyclate 100 mg capsule Take 1 capsule twice a day by oral route with meals for 10 days. active Not Available Not Available No t Available ofloxacin 0.3 % eye drops INSTILL 1 DROP INTO THE RIGHT EYE 4 TIMES A DAY STARTING THE DAY AFTER SURGERY active Not Available Not Available No t Available prednisone 20 mg tablet 01/04 completed Not Available Not Available Not Available glipizide ER 5 mg tablet, extended release 24 hr active Not Available Not Available Not Available chlorthalid one 25 mg tablet 01/04 completed Not Available Not Available Not Available amlodipine 5 mg tablet 01/04 completed Not Available Not Available Not Available Tessalon Perles 100 mg capsule Take 1 capsule 3 times a day by oral route as needed for 10 days. 2022 active Not Available Not Available Not Avai lable prednisolon e acetate 1 % eye drops,suspe nsion active Not Available Not Available Not Available dexamethaso ne 4 mg tablet 01/04 completed Not Available Not Available Not Available lisinopril 10 mg tablet active Not Available Not Available Not Available metoprolol tartrate 50 mg tablet active Not Available Not Available No t Available omeprazole 20 mg capsule,del ayed release active Not Available Not Available Not Available lisinopril 5 mg tablet active Not Available Not Available Not Available ipratropium bromide 42 mcg (0.06 %) nasal spray Spiceland 2 sprays 3 times a day by intranasa l route for 15 days. 2022 active Not Available Not Available Not Avai lable colchicine 0.6 mg tablet active Not Available Not Available Not Available metformin ER 500 mg tablet,exte nded release 24 hr 01/04 completed Not Available Not Available Not Available doxycycline hyclate 100 mg tablet Take 1 tablet twice a day by oral route for 7 days. 2022 active Not Available Not Available Not Avai lable glipizide 5 mg tablet active Not Available Not Available No t Available dutasteride 0.5 mg capsule active Not Available Not Available Not Available Novolog FlexPen U-100 Insulin aspart 100 unit/mL (3 mL) subcutaneou s active Not Available Not Available Not Available aspirin active Not Available Not Avail able Not Available Levemir FlexPen 100 unit/mL (3 mL) solution subcutaneou s insulin pen active Not Available Not Available Not Available BD Ultra-Fine Short Pen Needle 31 gauge x 5/16 active Not Available Not Available Not Available fenofibrate nanocrystal lized 48 mg tablet 01/04 completed Not Available Not Available Not Available GaviLyte-G 236 gram-22.74 gram-6.74 gram-5.86 gram oral solution active Not Available Not Available Not Available Jardiance 10 mg tablet 01/04 completed Not Available Not Available Not Available Basaglar KwikPen U-100 Insulin 100 unit/mL (3 mL) subcutaneou s active Not Available Not Available Not Available Vitals Date Recorded Body height Body mass index (BMI) Body weight Pain severity - 0-10 verbal numeric rating [Score] - Reported Respiratory rate Oxygen saturation Oxygen saturation in Arterial blood by Pulse oximetry Heart rate Body temperature Systolic blood pressure Diastolic blood pressure Provider Name and Address Organization Details Last Updated DateTime 3 175.26 cm 29.2 kg/m2 74334.2 9 g 5 18 /min 98 % 98 % 67 /min 97.9 [degF] 103 mm[Hg] 63 mm[Hg] BERNARDO GARRISON RA PA - [facility] 3 11:16:54 Date Recorded Body height Body mass index (BMI) Body weight Body temperature Respiratory rate Heart rate Oxygen saturation Oxygen saturation in Arterial blood by Pulse oximetry Pain severity - 0-10 verbal numeric rating [Score] - Reported Systolic blood pressure Diastolic blood pressure Provider Name and Address Organization Details Last Updated DateTime 3 175.26 cm 28.8 kg/m2 89512.5 1 g 98.2 [degF] 18 /min 75 /min 98 % 98 % 3 130 mm[Hg] 76 mm[Hg] Kathy Millard PA [facility] 3 13:54:57 Social History Question Answer Notes LastModified by [employer] Details LastModified Time Tobacco Smoking Status Never Smoker [facility] 01/04/2023 11:20:41 Have You Had Direct Contact, Or Contact During Intimacy, With Monkeypox Rash, Scabs, Or Body Fluids From A Person With Monkeypox? No Information not available 01/04/2023 Have You Recently Traveled Abroad? No Information not available 01/04/2023 Sex: Unknown Functional Status Question Answer Note LastModified by [employer] Details LastModified Time Do you use any illicit or recreational drugs? No Information not available 01/04/2023 Do you or have you ever used any other forms of tobacco or nicotine? No Information not available 01/04/2023 What is your level of alcohol consumption? None Information not available 01/04/2023 Mental Status None recorded. Family History Relationship Description Onset Age of this Age Resolved Age Notes LastModified by Organization Details LastModified Time Father Malignant neoplastic disease Not available 11:20:28 Mother Alzheimer's disease Not available 11:20:32 Medical History No medical history recorded. Immunizations Vaccine Type Date Status Note Provider Nam e and Address Organization Details Recorded Time Influenza, high-dose, quadrivalent, PF 05/11/2020 completed BERNARDO coughlin PA [facility] 01/04/2023 11:17:15 Influenza, high-dose, quadrivalent, PF 07/29/2021 completed BERNARDO coughlin PA - [facility] 01/04/2023 11:17:16 COVID-19, mRNA, LNP-S, PF, 100 mcg/0.5mL dose or 50 mcg/0.25mL dose 09/07/2020 completed BERNARDO MONTAÑO null, PA - [facility] 01/04/2023 11:17:16 COVID-19, mRNA, LNP-S, PF, 100 mcg/0.5mL dose or 50 mcg/0.25mL dose 10/05/2020 completed BERNARDO MONTAÑO null, PA - [facility] 01/04/2023 11:17:16 COVID-19, mRNA, LNP-S, PF, 100 mcg/0.5mL dose or 50 mcg/0.25mL dose 06/17/2021 completed BERNARDO MONTAÑO null, PA - [facility] 01/04/2023 11:17:16 Tdap 04/05/2019 completed BERNARDO MONTAÑO null, PA - [facility] 01/04/2023 11:17:16 Influenza, high-dose, trivalent, PF 05/25/2018 completed BERNARDO MONTAÑO null, PA - [facility] 01/04/2023 11:17:16 Influenza, high-dose, trivalent, PF 06/24/2019 completed BERNARDO MONTAÑO null, PA - [facility] 01/04/2023 11:17:16 Past Encounters Encounter ID Performer Location Encounter Start Date Encounter Closed Date Diagnosis/Indication Diagnosis SNOMED-CT Code Diagnosis ICD10 Code Diagnosis Note [id number] [address] [place] [address] 11/20/2021 10:37:41 11/20/2021 12:22:16 [id number] [address] [place] [address] 08/15/2021 14:08:53 08/15/2021 17:06:58 [id number] Keanu Gomes NP [address] [place] [address] 01/04/2023 11:02:19 01/04/2023 11:46:26 Acute sinusitis 17638633 J01.90 [id number] [facility] GRANT [address] [facility] [address] [place] [address] 03/05/2023 12:37:47 03/05/2023 15:01:09 Acute bronchitis 09002075 J20.9 Acute sinusitis 16070231 J01.90 Health Concerns Section Related Observation LastModified by Organization Detai ls LastModified Time None Recorded Concern Status LastModified by Organization Details LastModified Time None Recorded Advance Directives Directive None Recorded Payers Insurance Date Sequence Insurance Name Policy Number Policy Johnson Covered Member ID Johnson Member ID Guarantor Name 03/05/2023 1 [place]ICARE [place]: [employer] Dany Dudley [id number] Dany Dudley 03/05/2023 2 [facility] - PREFERRED (MEDICARE SUPPLEMENT) [id number] Dany Dudley [id number] Dany Dudley Notes Date Note Type Note Provider Name and Address Organization Details Recorded Time 3 text/html Sinus Complaints UCReported bypatient.Location:sinus pain;facial pain;sinus pressure Associated Symptoms:no fever; no nausea or vomiting; no sore throat; no ear fullness; no nasal itching; no eye itching; no dizziness;difficulty breathing;Post nasal drip;nasal passage blockage;cough Onset/Timing:worse in am; worse in pm Quality:minimal discomfort;worsening; clear Duration:frequent Severity:moderate Context:no recent upper respiratory infection; no recent sick contacts; not worse with seasonal allergen exposure;worse with environmental exposure Risk Factors:no current smoking or tobacco use; no history of nasal trauma Alleviating factors:oral steroids Aggravating factors:worse during an upper respiratory infection (a cold); worse with excess fatigue Prior Treatmentoral decongestant Keanu Gomes NP [address] [place], [address], PA - [facility] 01/04/2023 11:44:25 3 text/html CoughReported bypatient.source of patient informationInformation obtained from patient; Patient arrived at Urgent Care ambulatory Quality:productive cough; intermittent Severity:moderate Duration:intermittent; days; symptoms lasting over 2 weeks Context:Patient denies vaping; non-smoker Associated Symptoms:no fever; no chills; no chest pain; no heartburnNotes:77 Y.O male pt presents with ongoing sinus congestion, pressure and intermittent cough x 3 weeks. Pt denies fever, chest pain or SOB. GYPSY GRANT [address] [place], [place] [address], [address], PA - [facility] 03/06/2023 11:41:55
--- OUTSIDE RECORDS SUMMARY | 2024-12-21 11:49 | XMS_ITS | Clinical Summary ---
Author Organization [facility] Address [address] [place] [address] Care Team Providers Care Powerhouse Engineer Name Role Phone Bahman Corrales MD Primary Care Provider Unavailab le Allergies Active Allergy Reactions Criticality Noted Date Comments Penicillins 08/19/2021 Medications Medication Sig Dispensed Refills Start Date End Date Status metFORMIN (GLUCOPHAGE) tablet 500 mg Take 500 mg by mouth 2 (two) times a day with meals. 0 Active glipiZIDE (GLUCOTROL) tablet 5 mg Take 5 mg by mouth daily. 0 Active metoprolol succinate (TOPROL-XL) 24 hr tablet 25 mg Take by mouth daily. 0 Active lisinopril (PRINIVIL,ZESTRIL) tablet 10 mg Take 10 mg by mouth daily. 0 Active atorvastatin (LIPITOR) tablet 80 mg Take 80 mg by mouth daily. 0 Active aspirin EC 81 MG tablet Take 81 mg by mouth daily. 0 Active dutasteride (AVODART) 0.5 MG capsule Take 0.5 mg by mouth every other day. 0 Active omeprazole (PriLOSEC) 20 MG capsule Take 20 mg by mouth daily. 0 Active Hamlin-3 Fatty Acids (Fish Oil) 1000 MG CAPS Take by mouth 2 (two) times a day. 0 Active Cholecalciferol (Vitamin D-3) 125 MCG (5000 UT) TABS Take by mouth every other day. 0 Active Multiple Vitamin (Multivitamin Adult) TABS Take by mouth daily. 0 Active azithromycin (ZITHROMAX) 250 MG tablet 2 po day one then one daily 6 tablet 0 08/19/2021 Active Cyanocobalamin (Vitamin B-12) [address] 1,000 mcg under the tongue daily. 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 Peguero at [facility] cardiology Dr. Peguero at [facility] Class 1 obesity 04/10/2021 Type 2 diabetes mellitus 04/10/2021 Hyperlipidemia 01/27/2018 Hypertension 01/27/2018 Vitamin D deficiency 01/27/2018 Benign prostatic hyperplasia 08/28/2017 Esophageal reflux 10/05/2013 Family History Medical History Relation Name Comments Stroke Brother 1 Thyroid disease Brother 2 Diabetes Father Hypertension Father Throat cancer Father Dementia Mother Kidney disease Mother Relation Name Status Comments Brother 1 Alive Brother 2 Alive Father (Age 92) Mother (Age 88) Social History Tobacco Use Types Packs/Day Years Used Date Smoking Tobacco: Former Cigarettes 1 17 Q uit: 1981 Smokeless Tobacco: Never Alcohol Use Standard Drinks/Week Comments Not Currently 0 (1 standard drink = 0.6 oz pur e alcohol) Seldom due to DM Sex and Gender Information Value Date Recorded Sex Assigned at Not on file Gender Identity Not on file Sexual Orientation Not on file Job Start Date Occupation Industry Not on file Not on file Not on file Last Filed Vital Signs Vital Sign Reading Time Taken Comments Blood Pressure 130/70 08/19/2021 11:06 AM EST Pulse 89 08/19/2021 11:06 AM EST Temperature 36.4 ??C (97.6 ??F) 08/19/2021 11:[address] Respiratory Rate - - Oxygen Saturation 100% 08/19/2021 11:06 AM EST Inhaled Oxygen Concentration - - Weight 96.2 kg (212 lb) 08/19/2021 11:06 AM EST Height 175.3 cm (5' 9 ) 08/19/2021 11:06 AM EST Body Mass Index 31.31 08/19/2021 11:06 AM EST Plan of Treatment Health Maintenance Due Date Last Done Comments Hepatitis C Screening 1945 COVID-19 Vaccine (#1) 1945 Depression Screening 1958 Preventative Health Evaluation 1964 Shingrix-Zoster Vaccine (1 o f 2) 1996 Fall Risk Assessment 2011 RSV Adult > 60+ Yrs or (1 - 1-dose 75+ series) 2021 Influenza Vaccine (#1) 2024 9, 2016, 05/01/2011 DTap / Tdap / Td (2 - Td or Tdap) 04/05/2029 04/05/2019 Pneumococcal Vaccine Completed 07/30/2015, 06/21/2012 Hepatitis B Vaccines Aged Out No long er eligible based on patient's age to complete this topic RSV Ped < 20 months Aged Out No longe r eligible based on patient's age to complete this topic Care Teams Powerhouse Engineer Relationship Specialty Start Date End Date Bahman Corrales MD PCP - General Internal Medicine 07/19/21
--- OUTSIDE RECORDS SUMMARY | 2024-12-21 11:49 | XMS_ITS | Encounter Summary ---
Author Organization [facility] Address [address] [place] [address] Phone Care Team Providers Care Service Administrator Name Role Phone Bahman Corrales MD Primary Care Provider [phone] Encounter Details Date Type Department Care Team (Late st Contact Info) Description 06/02/2022 Telephone [facility] [address] [place] [phone] Shashank Herrera MD Social History Tobacco Use Types Packs/Day Years Used Date Smoking Tobacco: Former Smokeless Tobacco: Former Sex and Gender Information Value Date Recorded Sex Assigned at Not on file Legal Sex Male 3:16 PM EDT Gender Identity Not on file Sexual Orientation Not on file COVID-19 Exposure Response Date Recorded In the last 10 days, have yo u been in contact with someone who was confirmed or suspected to have Coronavirus/COVID-19? No / Unsure 05/15/2022 3:47 PM EDT documented as of this encounter Miscellaneous Notes * Telephone Encounter - Avelina Swan - 06/02/2022 3:22 PM EDT Pt called, he has Covid and would like to know if there is anything you would recommend to help. Please call him back at [phone] Thank you documented in this encounter Plan of Treatment Not on file documented as of this encounter Visit Diagnoses Not on filedocumented in this encounter Care Teams Service Administrator Relationship Specialty Start Date End Date Bahman Corrales MD [address] [place] [address] PCP - General Internal Medicine 03/05/21 documented as of this encounter
--- OUTSIDE RECORDS SUMMARY | 2024-12-21 11:49 | XMS_ITS | Clinical Summary ---
Author Organization [facility] Address [address] [place] [address] Phone Care Team Providers Care Engagement Director Name Role Phone Bahman Corrales MD Primary Care Provider [phone] Allergies Active Allergy Reactions Criticality Noted Date Comments Insulin Glargine Hives,Itching,Rash,O ther (see comments) Low 10/30/2022 Rash, swollen lips Penicillins Other (see comments) 08/29/2010 Medications aspirin 81 MG chewable tablet Chew 81 mg 1 (one) time each day Active atorvastatin (LIPITOR) 80 MG tablet Take 80 mg by mouth 1 (one) time each day 1 Active Cholecalciferol 50 MCG (1999 UT) capsule Take 2,000 Units by mouth 2 (two) times a week 7 Active dutasteride (AVODART) 0.5 MG capsule Take 0.5 mg by mouth every other day 1 Active glipiZIDE (GLUCOTROL XL) 5 MG 24 hr tablet Take 5 mg by mouth in the morning and 5 mg in the evening. 1 Active metoprolol tartrate (LOPRESSOR) 50 MG tablet Take 25 mg by mouth 2 (two) times a day 1 Active omega-3 (FISH OIL) 1000 MG capsule Take by mouth 1 (one) time each day Active Cyanocobalamin 1000 MCG lozenge 1 Active insulin detemir (Levemir FlexPen) 100 UNIT/ML injection 3 Active Alpha-Lipoic Acid 300 MG tablet Take by mouth Active omeprazole (PriLOSEC) [address] capsule Take 20 mg by mouth 1 (one) time each day Do not crush or chew. Active insulin aspart (NovoLOG) 100 UNIT/ML patient supplied pump Inject under the skin continuously Active lisinopril 5 MG tablet Take 5 mg by mouth 1 (one) time each day Active Active Problems Problem Noted Date Diagnosed Date Anemia of chronic disease 08/19/2021 Cobalamin deficiency 08/19/2021 Stage 3a chronic kidney disease 08/19/2021 Hypertension 01/27/2018 Vitamin D deficiency 01/27/2018 Resolved Problems Problem Noted Date Diagnosed Date Resolved Date Coronary arteriosclerosis 04/10/2021 Overview (04/10/2021): cardiology Dr. Peguero at [facility] Obese class I 04/10/2021 08/20/2021 Type 2 diabetes mellitus 04/10/202106/2022 Severe acute respiratory syn drome coronavirus 2 not detected 07/17/2020 08/20/2021 Hyperlipidemia 01/27/2018 08/20/2021 Benign prostatic hyperplasia 08/28/2017 08/20/2021 Polyp of colon 09/27/2014 08/20/2021 Esophageal reflux 10/05/2013 08/20/2021 Immunizations Immunization Administration Dates Next Due Influenza (IM) Preservative Free 06/12/2012 Influenza Split High Dose Preservative Free IM 1 08/24/2018,2016 Influenza TIV (IM) 05/01/2011 Pneumococcal Conjugate 13-Valent 07/30/2015 Pneumococcal Polysaccharide 06/21/2012 Tdap 04/05/2019 Family History Medical History Relation Comments Anemia Father Cancer Father Diabetes Father Heart disease Father Hypertension Father Heart disease Maternal Grandfather Dementia Maternal Grandmother Anemia Mother Dementia Mother Kidney disease Mother Cancer Paternal Grandmother Relation Status Comments Father Maternal Grandfather Maternal Grandmother Mother Paternal Grandmother Social History Tobacco Use Types Packs/Day Years Used Date Smoking Tobacco: Former Cigarettes 1 19 0 01/08/1963 - 01/08/1982 Smokeless Tobacco: Never Tobacco Cessation:Counseling Given: Not Answered Comments:exact dates of use approximates Alcohol Use Standard Drinks/Week Comments Not Currently 0 (1 standard drink = 0.6 oz pur e alcohol) no alcohol in several years Sex and Gender Information Value Date Recorded Sex Assigned at Not on file Legal Sex Male 3:16 PM EDT Gender Identity Not on file Sexual Orientation Not on file Last Filed Vital Signs Vital Sign Reading Time Taken Comments Blood Pressure 120/70 05/13/2023 5:09 PM EDT Pulse 80 05/13/2023 5:09 PM EDT Temperature - - Respiratory Rate - - Oxygen Saturation 97% 12/24/2022 2:55 PM EDT Inhaled Oxygen Concentration - - Weight 91.2 kg (201 lb) 05/13/2023 5:09 PM EDT Height 175.3 cm (5' 9 ) 12/24/2022 2:55 PM EDT Body Mass Index 29.68 12/24/2022 2:55 PM EDT Plan of Treatment Health Maintenance Due Date Last Done Comments Diabetes: Ophthalmology Exam 03/08/2021 Diabetes: Pedal Pulse Checked 03/08/2021 Diabetes: Sensory Foot Exam 03/08/2021 Diabetes: Visual Foot Exam 03/08/2021 Diabetes: Hemoglobin A1C 07/09/2023 023, 09/24/2022, 11/15/2021, Additional history exists Influenza Vaccine (Season Ended) 2025 06/24/2019, 2016, 06/12/2012, Additional history exists Pneumococcal Vaccine: 50+ Years Completed 07/30/2015, 06/21/2012 Hepatitis B Vaccine Aged Out No longe r eligible based on patient's age to complete this topic Insurance Medicare [facility] Medicare [facility] Care Teams Engagement Director Relationship Specialty Start Date End Date Bahman Corrales MD [address] [place] [id number] PCP - General Internal Medicine 03/05/21
--- OUTSIDE RECORDS SUMMARY | 2024-12-21 11:49 | XMS_ITS | Encounter Summary ---
Author Organization [facility] Address [address] [place] [address] Phone Care Team Providers Care Convenience Store Clerk Name Role Phone Bahman Corrales MD Primary Care Provider [phone] Encounter Details Date Type Department Care Team (Late st Contact Info) Description 12/16/2022 Telephone [facility] [address] [place] [id number] Lindsey Neely Social History Tobacco Use Types [...] suspected to have Coronavirus/COVID-19? No / Unsure 12/17/2022 10:35 AM EDT documented as of this encounter Miscellaneous Notes * Telephone Encounter - Shashank Herrera MD - 12/19/2022 2:10 PM EDT Yes- he can use these labs Steroids wont affect Let him know * Telephone Encounter - FlorindaLindsey kruger - 12/16/2022 10:41 AM EDT PT says he was recently seen in the hospital, some med changes were made and labs were done. PT says that he wants to use these labs for his upcoming visit, he will have documents in hand for that 12/24/2022 visit. He is also going to do his labs with our office but before doing so he would like toknow if the steroids he's currently on will effect his labs. Please advise. documented in this encounter Plan of Treatment Not on file documented as of this encounter Visit Diagnoses Not on filedocumented in this encounter Care Teams Convenience Store Clerk Relationship Specialty Start Date End Date Bahman Corrales MD [address] [place] [address] PCP - General Internal Medicine 03/05/21 documented as of this encounter
== END 2024-12-21 11:09 | disposition home or self-care (01) ==
LOC: HO.HKAS 10:46
PROVIDERS: PCP Internal Medicine; Visit Provider Internal Medicine Hypertension Specialist
DX: N18.30 Chronic kidney disease, stage 3 unspecified (principal); C61 Malignant neoplasm of prostate
CPT/HCPCS: 99214

== ENCOUNTER 2025-06-13 14:02 | Outpatient (REF) | payer MEDICARE, SELFPAY ==
--- OUTSIDE RECORDS SUMMARY | 2025-06-13 17:06 | XMS_ITS | Clinical Summary ---
Author Organization [facility] Address [address] [place] [address] Care Team Providers Care Telecommunications Engineer Name Role Phone Bahman Corrales MD [...] 20 mg by mouth daily. 0 Active [place]-3 Fatty Acids (Fish Oil) 1000 MG CAPS [...] artery 04/10/2021 Overview: cardiology Dr. Peguero at [facility] cardiology Dr. Peguero at [facility] Class 1 obesity 04/10/2021 Type 2 diabetes [...] 89 08/19/2021 11:06 AM EST Temperature 36.4 C (97.6 F) 08/19/2021 11:06 AM EST Respiratory Rate - - Oxygen Saturation 100% [...] 1-dose 75+ series) 2021 Influenza Vaccine (#1) 2025 9, 2016, 05/01/2011 DTap / Tdap / Td (2 - Td or Tdap) 04/05/2029 04/05/2019 Pneumococcal Vaccine Completed 07/30/2015, 06/21/2012 Hepatitis B Vaccines Aged Out No long er eligible based on patient's age to complete this topic RSV Ped < 20 months Aged Out No longe r eligible based on patient's age to complete this topic Care Teams Telecommunications Engineer Relationship Specialty Start Date End Date Bahman Corrales MD PCP - General Internal Medicine 07/19/21
--- OUTSIDE RECORDS SUMMARY | 2025-06-13 17:06 | XMS_ITS | Encounter Summary ---
Author Organization [facility] Address [address] [place] [address] Phone Care Team Providers Care Creping Machine Operator Helper Name Role Phone Bahman Corrales MD Primary Care Provider [phone] Encounter Details Date Type Department Care Team (Late st Contact Info) Description 12/16/2022 Telephone [facility] [address] [place] [phone] Lindsey Neely Social History Tobacco Use Types [...] on filedocumented in this encounter Care Teams Creping Machine Operator Helper Relationship Specialty Start Date End Date Bahman Corrales MD [address] [place] [address] PCP - General Internal Medicine 03/05/21 documented as of this encounter
--- OUTSIDE RECORDS SUMMARY | 2025-06-13 17:06 | XMS_ITS | Clinical Summary ---
Author Organization [address] [facility] Address [address] [place] [address] Phone Care Team Providers Care Window And Door Installer Name Role Phone Bahman Corrales MD Primary Care Provider [phone] Allergies Active Allergy Reactions Criticality Noted Date Comments Insulin Glargine 07/17/2023 Other reaction(s): Hives Lantuss-Forte Other 11/03/2022 Rash, swollen lips Penicillins Hives 08/29/2010 Medications B complex tablet Active insulin syringe-needl e U-100 1 mL 31 gauge x 15/64 syringe USE DIRECTED WITH INSULIN PEN THREE TIMES A DAY 06/07/20 24 Active glucose blood test strip USE TO CHECK BLOOD SUGAR THREE TIMES A DAY DIRECTED 05/10/20 24 Active lancets (OneTouch Delica Plus Lancet) 33 gauge USE TO CHECK BLOOD SUGAR THREE TIMES A DAY DIRECTED 05/10/20 24 Active multivitamin (MULTI-DAY ORAL) Take 1 Tab by mouth daily. 12/20/19 17 Active alpha lipoic acid 600 mg capsule Take by mouth. Activ e aspirin 81 mg chewable tablet Take 81 mg by mouth daily. Active cholecalcifer ol (VITAMIN D-3) 1,250 mcg (50,000 unit) capsule Take 1,000 Int'l Units by mouth. 03/30/20 18 Active cyanocobalami n (VITAMIN B-12) 1,000 mcg tablet Take 1 tablet by mouth daily for 360 days. 06/26/20 21 Active dutasteride (AVODART) 0.5 mg capsule Take 1 Capsule by mouth every other day. Active leuprolide mesylate, 6 month, (Angel, 6 month,) 42 mg syringe Inject 42 mg into the skin Every 6 Months. Active metoprolol tartrate (LOPRESSOR) 50 mg tablet Take 25 mg by mouth 2 times daily. 01/23/20 18 Active blood-glucose sensor (FreeStyle Jessie 3 Sensor) device Use one sensor every 14 days E11.9 6 each 2 08/12/19 25 Active insulin aspart (NovoLOG FlexPen) 100 unit/mL (3 mL) injection pen Use 18 to 30 units 3 times a day before meals 90 mL 1 10/26/19 25 Active Easy Touch 31 gauge x 5/16 needleIndicat ions:Type 2 diabetes mellitus with stage 3b chronic kidney disease, with long-term current use of insulin ([facility] V24, [facility] V28) USE WITH INSULIN PEN THREE TIMES A DAY 300 each 3 11/11/19 25 Active glipiZIDE (GLUCOTROL) 5 mg tablet TAKE ONE TABLET BY MOUTH TWO TIMES A DAY BEFORE MEALS 180 tablet 1 03/06/20 25 Active atorvastatin (LIPITOR) 40 mg tablet Take 1 tablet (40 mg total) by mouth at bedtime. Active flash glucose scanning reader (FreeStyle Jessie 2 Welch) misc 1 Device by Does not apply route continuous. 02/17/20 23 025 Discontinued atorvastatin (LIPITOR) 80 mg tablet Take 80 mg by mouth daily. 01/23/20 18 025 Discontinued(D ose adjustment) blood-glucose meter,continu ous (FreeStyle Jessie 3 Welch) misc Use with Jessie 3 / 3+ sensors. 1 each 08/12/19 25 025 Discontinued bisacodyL (DULCOLAX) 5 mg EC tablet Take 2 tablets by mouth right before beginning bowel prep. See instructions provided by the office 2 tablet 11/30/19 25 025 Discontinued testosterone cypionate (DEPO-TESTOTE ROBYN) 100 mg/mL injection Inject into the shoulder, thigh, or buttocks every 14 (fourteen) days. 025 Discontinued Active Problems Problem Noted Date Diagnosed Date Hematochezia 11/28/2024 History of adenomatous polyp of colon 11/28/2024 CAD (coronary artery disease) 06/29/2024 Overview (06/29/2024): cardiology Dr. Peguero at [facility] Obesity (BMI 30.0-34.9) 06/29/2024 DM type 2 (diabetes mellitus , type 2) ([facility] V24, [facility] V28) 06/29/2024 Assessment & Plan (11/10/2024 12:13 PM EDT): Diabetes under control on glipizide and NovoLog insulin. Recent A1c was 6.5. Orders: CBC and differential; Future Comprehensive metabolic panel; Future Lipid panel with reflex to direct LDL; Future Thyroid stimulating hormone; Future Prostate cancer ([facility] V24, [facility] V28) 07/17 Overview (06/29/2024): Will start radiation 08/04/2023--seeing Dr. Erich Rico ([facility]) Hyperlipidemia 01/27/2018 Hypertension 01/27/2018 Assessment & Plan (11/10/2024 12:13 PM EDT): Hypertension is under control on metoprolol. Orders: CBC and differential; Future Comprehensive metabolic panel; Future Lipid panel with reflex to direct LDL; Future Thyroid stimulating hormone; Future Vitamin D deficiency 01/27/2018 BPH (benign prostatic hyperplasia) 08/28/2017 Colon polyps 09/27/2014 Esophageal reflux 10/05/2013 Encounters Date Type Department Care Team Description 05/17/2025 9:45 AM EDT Office Visit Internal Medicine - [address] [place] [address] Bahman Corrales MD Type 2 diabetes mellitus with stage 1 chronic kidney disease, without long-term current use of insulin ([facility] V24, [facility] V28) (Primary Dx); Hypercholesterolemia ; Stage 2 chronic kidney disease 05/15/2025 Results Follow-Up Internal Medicine [facility] [address] [facility] [address] [place] [address] Bahman Corrales MD 05/11/2025 Telephone Internal Medicine - [address] [place] [address] Bahman Corrales MD from Last 3 Months Immunizations Immunization Administration Dates Next Due Influenza trivalent, 0.5mL ( Fluzone High-dose) 65yo and older 06/24/2019,2016 Influenza trivalent, 0.5mL, preservative free (Fluarix; FluLaval; Fluzone) ages 6mo and older (Afluria) 3 years and older 06/12/2012 Influenza trivalent, with pr eservative (Fluzone; Afluria) 6mo and older 05/01/2011 Pneumococcal conjugate 13 va lent (Prevnar 13, PCV13) 2mo and older 07/30/2015 Pneumococcal polysaccharide 23 valent (Pneumovax 23) 2yo and older 06/21/2012 Tdap Tetanus diptheria acell ular pertussis (Boostrix; Adacel) 7yo and older 04/05/2019 Surgical History Surgery Date Site/Laterality Comments CORONARY ANGIOPLASTY WITH STENT PLACEMENT Medical History Medical History Date Comments DM type 2 (diabetes mellitus , type 2) ([facility] V24, [facility] V28) DX:DM type 2 (diabetes montserrat itus, type 2) ([facility]) HTN (hypertension) DX:HTN (hyper tension) Hyperlipidemia DX:Hyperlipidemi a CAD (coronary artery disease) DX :CAD (coronary artery disease); COMMENT: cardiology Dr. Peguero at [facility] Obesity (BMI 30.0-34.9) DX:Obesi ty (BMI 30.0-34.9) BPH (benign prostatic hyperplasia) DX:BPH (benign prostatic hyperplasia) Prostate cancer ([facility] V24, [facility] V28) Family History Medical History Relation Name Comments Throat cancer Father Relation Name Status Comments Father Mother Social History Tobacco Use Types Packs/Day Years Used Date Smoking Tobacco: Former Cigarettes Q uit: 06/09/1980 Smokeless Tobacco: Never Tobacco Cessation:Counseling Given: Not Answered Alcohol Use Standard Drinks/Week Comments Not Currently 0 (1 standard drink = 0.6 oz pur e alcohol) Housing Instability Answer Date Recorde d Are you worried that in the next 2 months you may not have stable housing? No 11/08/2024 Food Access & Nutrition Answer Date Rec orded Do you have access to a vari ety of food including fruits and vegetables? Yes 11/08/2024 Access to Healthcare Answer Date Record ed Within the last 3 months, ho w many times did you visit the emergency department for your medical care? 0 11/08/2024 Health Literacy Answer Date Recorded How often do you need to hav e someone help you when you read instructions, pamphlets, or other written material from your doctor or pharmacy? Never 11/08/2024 Caregiver: How often do you need to have someone help you when you read instructions, pamphlets, or other written material from your doctor or pharmacy? Not on file 11/08/2024 Financial Risk Answer Date Recorded How hard is it for you to pa y for the very basics like food, housing, medical care, and air conditioning / heating? Not very hard 11/08/2024 Transportation Answer Date Recorded Has the lack of transportati on kept you from meetings, work, or from getting things needed for daily living? No Has the lack of transportati on kept you from medical appointments or from getting medications? No 11/08/2024 Social Isolation Answer Date Recorded How often do you feel lonely or isolated from th ose around you? Never 11/08/2024 Food Risk Answer Date Recorded Within the past 12 months we worried whether our food would run out before we got money to buy more. Never true 11/08/2024 Within the past 12 months th e food we bought just didn't last and we didn't have money to get more. Never true 11/08/2024 Dependent Care Answer Date Recorded Do you need help finding or paying for care for your loved ones. For example, child care director or elderly care for an older adult? No 11/08/2024 Education Answer Date Recorded Do you think completing more education or training, like finishing a GED, going to college, or learning a trade, would be helpful for you? No 11/08/2024 Employment and Income Answer Date Recor ded During the last four weeks, have you been actively looking for work? No 11/08/2024 Living Situation Answer Date Recorded What is your living situation? Unrecognized valu e 11/08/2024 Interpersonal Safety Answer Date Record ed Physical Abuse Unrecognized value 12/07/2024 Verbal Abuse Unrecognized value 12/07/2024 Sex and Gender Information Value Date Recorded Sex Assigned at Not on file Legal Sex Male 1:05 AM EST Gender Identity Not on file Sexual Orientation Not on file Obstetrics History Last Filed Vital Signs Vital Sign Reading Time Taken Comments Blood Pressure 122/60 05/17/2025 9:40 AM EDT Pulse 69 05/17/2025 9:40 AM EDT Temperature 36.2 C (97.1 F) 05/17/2025 9:40 AM EDT Respiratory Rate 17 12/12/2024 9:26 AM EDT Oxygen Saturation 96% 05/17/2025 9:40 AM EDT Inhaled Oxygen Concentration - - Weight 103 kg (226 lb) 05/17/2025 9:40 AM EDT Height 175.3 cm (5' 9 ) 05/17/2025 9:40 AM EDT Body Mass Index 33.37 05/17/2025 9:40 AM EDT Plan of Treatment Upcoming Encounters Date Type Department Care Team (Late st Contact Info) Description 06/29/2025 8:30 AM EST Office Visit Endocrinology [facility] [address] [place] [address] Connie Baker PA [address] [place] [address] 11/16/2025 9:45 AM EDT Office Visit Internal Medicine - [address] [place] [phone] Bahman Corrales MD [address] [place] [phone] Health Maintenance Due Date Last Done Comments Diabetes: Annual Foot Exam 1955 Diabetes: Annual Retina Eye Exam 1955 Zoster Vaccines (1 of 2) 1965 RSV Immunization Adult Patients (1 - 1-dose 75+ series) 2021 Hepatitis C Screening 07/19/2022 Diabetes: Annual Urine Albumin-Creatinine Ratio (uACR) 04/09/2024 04/09/2023 COVID-19 Vaccine ( season) 2025 06/17/2021, 10/05/2020, 09/07/2020 Influenza Vaccine (#1) 2025 , 05/11/2020, 06/24/2019, Additional history exists Social Influencers of Health Screening 11/08/2025 11/08/2024 Medicare Annual Wellness Visit 11/10/2025 11/10/2024 Diabetes: Blood Sugar Control Test (HGBA1C) 11/13/2025 05/15/2025, 11/01/2024, 08/08/2024, Additional history exists Falls Risk Assessment 12/07/2025 12/07/2024, 024 Diabetes: Annual GFR (Glomerular Filtration Rate) 05/15/2026 05/15/2025, 12/15/2024, 06/22/2024, Additional history exists Hypertension/CHF/CAD Annual BMP Blood Test 05/15/2026 05/15/2025, 12/15/2024, 06/22/2024, Additional history exists DTaP,Tdap,and Td Vaccines (2 - Td or Tdap) 04/05/2029 04/05/2019 Cholesterol Screening (Lipid Panel) 05/15/2030 05/15/2025, 11/01/2024, 10/28/2023 Pneumococcal Vaccine: 50+ Years Completed 07/30/2015, 06/21/2012 Depression Screening Completed 05/11/2025, 11/11/19 24 HIB Vaccines Aged Out No longer eligi ble based on patient's age to complete this topic HPV Vaccines Aged Out No longer eligi ble based on patient's age to complete this topic Hepatitis A Vaccines Aged Out No long er eligible based on patient's age to complete this topic Hepatitis B Vaccines Aged Out No long er eligible based on patient's age to complete this topic IPV Vaccines Aged Out No longer eligi ble based on patient's age to complete this topic MMR Vaccines Aged Out No longer eligi ble based on patient's age to complete this topic Meningococcal ACWY Vaccine Aged Out N o longer eligible based on patient's age to complete this topic Meningococcal B Vaccine Aged Out No l onger eligible based on patient's age to complete this topic RSV Immunization Patients Under 20 months Aged Out No longer eligible based on patient's age to complete this topic Varicella Vaccines Aged Out No longer eligible based on patient's age to complete this topic Procedures Procedure Name Priority Date/Time Associated Diagnosis Comments CBC WITH AUTO DIFFERENTIAL Routine 05/15/2025 8:41 AM EDT Type 2 diabetes mellitus with stage 1 chronic kidney disease, without long-term current use of insulin ([facility] V24, [facility] V28) Hypercholesterolem ia THYROID STIMULATING HORMONE Routine 05/15/2025 8:41 AM EDT Primary hypertension Hypercholesterolem ia Type 2 diabetes mellitus with stage 1 chronic kidney disease, without long-term current use of insulin ([facility] V24, CMS/HCC V28) CBC AND DIFFERENTIAL Routine 05/15/2025 8:41 AM EDT Type 2 diabetes mellitus with stage 1 chronic kidney disease, without long-term current use of insulin ([facility] V24, CMS/HCC V28) Hypercholesterolem ia COMPREHENSIVE METABOLIC PANEL Routine 05/15/2025 8:41 AM EDT Type 2 diabetes mellitus with stage 1 chronic kidney disease, without long-term current use of insulin (CMS/HCC V24, CMS/HCC V28) Hypercholesterolem ia LIPID PANEL WITH REFLEX TO DIRECT LDL Routine 05/15/2025 8:41 AM EDT Type 2 diabetes mellitus with stage 1 chronic kidney disease, without long-term current use of insulin ([facility] V24, CMS/HCC V28) Hypercholesterolem ia HEMOGLOBIN A1C Routine 05/15/2025 8:41 AM EDT Type 2 diabetes mellitus with stage 1 chronic kidney disease, without long-term current use of insulin ([facility] V24, CMS/H[facility] V28) DEPRESSION SCREENING Routine 11/11/2023 FALLS RISK ASSESSMENT Routine 11/11/2023 URINE ALBUMIN CREATININE RATIO Routine 04/09/2023 from Last 3 Months or Most Recently Relevant to Health Maintenance Results * (ABNORMAL) Lipid panel with reflex to direct LDL (05/15/2025 8:41 AM EDT) Cholesterol 131 0 - 200 mg/dL LAB CHEMISTRY METHOD 05/15/2025 12:03 PM [facility] Triglycerides 207(H) 0 - 150 mg/dL LAB CHEMISTRY METHOD 05/15/2025 12:03 PM [facility] HDL 50 >=40 mg/dL LAB CHEMISTRY METHOD 05/15/2025 12:03 PM [facility] LDL Calculated 40 0 - 100 mg/dL LAB CHEMISTRY METHOD 05/15/2025 12:03 PM [facility] Comment:Estimated LDL Calcul ated using equation: Total cholesterol - HDL cholesterol - (Triglycerides/5) VLDL Cholesterol Venancio 41.4 mg/dL LAB CHEMISTRY METHOD 05/15/2025 12:03 PM [facility] Non HDL Chol. (LDL+VLDL) 81 <145 mg/dL LAB CHEMISTRY METHOD 05/15/2025 12:03 PM [facility] Chol/HDL Ratio 2.6 0.0 - 4.4 LAB CHEMISTRY METHOD 05/15/2025 12:03 PM [facility] Blood Venous blood specimen / Unknown Venipuncture / Unknown 05/15/2025 8:41 AM EDT 05/15/2025 8:41 AM EDT us Bahman Corrales MD LAB BLOOD ORDERABLES Final Resul t [facility] [address] [place] [address], * (ABNORMAL) CBC auto differential (05/15/2025 8:41 AM EDT) WBC 4.8 4.8 - 10.8 K/mcL LAB HEMETOLOGY METHOD 05/15/2025 11:32 AM EDT [facility] RBC 4.00(L) 4.50 - 5.50 M/mcL LAB HEMETOLOGY METHOD 05/15/2025 11:32 AM [facility] Hemoglobin 12.4(L) 13.5 - 17.5 g/dL LAB HEMETOLOGY METHOD 05/15/2025 11:32 AM [facility] Hematocrit 37.6(L) 42.0 - 54.0 % LAB HEMETOLOGY METHOD 05/15/2025 11:32 AM [facility] MCV 93.8 79.0 - 98.0 FL LAB HEMETOLOGY METHOD 05/15/2025 11:32 AM [facility] MCH 30.9 27.0 - 32.0 pcg LAB HEMETOLOGY METHOD 05/15/2025 11:32 AM [facility] MCHC 33.0 32.0 - 37.0 g/dL LAB HEMETOLOGY METHOD 05/15/2025 11:32 AM [facility] RDW 14.1 11.0 - 15.0 % LAB HEMETOLOGY METHOD 05/15/2025 11:32 AM [facility] Platelets 199 130 - 400 K/mcL LAB HEMETOLOGY METHOD 05/15/2025 11:32 AM [facility] MPV 9.2 7.0 - 11.0 FL LAB HEMETOLOGY METHOD 05/15/2025 11:32 AM [facility] NRBC 0.0 <1.0 % LAB HEMETOLOGY METHOD 05/15/2025 11:32 AM [facility] NRBC Absolute 0.00 <0.10 K/mcL LAB HEMETOLOGY METHOD 05/15/2025 11:32 AM [facility] Neutrophils Relative 74.3 % LAB HEMETOLOGY METHOD 05/15/2025 11:32 AM [facility] Lymphocytes Relative 13.2 % LAB HEMETOLOGY METHOD 05/15/2025 11:32 AM [facility] Monocytes Relative 7.2 % LAB HEMETOLOGY METHOD 05/15/2025 11:32 AM [facility] Eosinophils Relative 4.3 % LAB HEMETOLOGY METHOD 05/15/2025 11:32 AM [facility] Basophils Relative 0.6 % LAB HEMETOLOGY METHOD 05/15/2025 11:32 AM [facility] Immature Granulocytes Relative 0.4 % LAB HEMETOLOGY METHOD 05/15/2025 11:32 AM [facility] Neutrophils Absolute 3.59 1.50 - 7.00 K/mcL LAB HEMETOLOGY METHOD 05/15/2025 11:32 AM [facility] Lymphocytes Absolute 0.64(L) 1.00 - 5.00 K/mcL LAB HEMETOLOGY METHOD 05/15/2025 11:32 AM [facility] Monocytes Absolute 0.35 0.20 - 1.00 K/mcL LAB HEMETOLOGY METHOD 05/15/2025 11:32 AM [facility] Eosinophils Absolute 0.21 0.00 - 0.50 K/mcL LAB HEMETOLOGY METHOD 05/15/2025 11:32 AM [facility] Basophils Absolute 0.03 0.00 - 0.20 K/mcL LAB HEMETOLOGY METHOD 05/15/2025 11:32 AM [facility] Immature Granulocytes Absolute 0.02 0.00 - 0.03 K/mcL LAB HEMETOLOGY METHOD 05/15/2025 11:32 AM [facility] Blood Venous blood specimen / Unknown Venipuncture / Unknown 05/15/2025 8:41 AM EDT 05/15/2025 8:41 AM EDT us Bahman Corrales MD LAB BLOOD ORDERABLES Final Resul t Performing Organization Address City/[facility]/ZIP Co de Phone Number [facility] [address] [place] [address], [place] [phone] * Thyroid stimulating hormone (05/15/2025 8:41 AM EDT) TSH 2.79 0.40 - 4.00 mcIU/mL LAB CHEMISTRY METHOD 05/15/2025 1:36 PM EDT [facility] Blood Venous blood specimen / Unknown Venipuncture / Unknown 05/15/2025 8:41 AM EDT 05/15/2025 8:41 AM EDT us Bahman Corrales MD LAB BLOOD ORDERABLES Final Resul t Performing Organization Address [facility] Co de Phone Number [facility] [address] [place] [address], [place] [phone] * (ABNORMAL) Hemoglobin A1c (05/15/2025 8:41 AM EDT) Hemoglobin A1C 6.8(H) <6.5 % LAB CHEMISTRY METHOD 05/15/2025 1:34 PM EDT [facility] Mean Bld Glu Estim. 148 mg/dL LAB CHEMISTRY METHOD 05/15/2025 1:34 PM EDT [facility] Blood Venous blood specimen / Unknown Venipuncture / Unknown 05/15/2025 8:41 AM EDT 05/15/2025 8:41 AM EDT us Bahman Corrales MD LAB BLOOD ORDERABLES Final Resul t Performing Organization Address City/[facility]/ZIP Co de Phone Number [facility] [address] [place] [address], [place] [phone] * (ABNORMAL) Comprehensive metabolic panel (05/15/2025 8:41 AM EDT) Sodium 138 133 - 145 mmol/L LAB CHEMISTRY METHOD 05/15/2025 12:03 PM [facility] Potassium 4.7 3.5 - 5.5 mmol/L LAB CHEMISTRY METHOD 05/15/2025 12:03 PM [facility] Chloride 106 96 - 110 mmol/L LAB CHEMISTRY METHOD 05/15/2025 12:03 PM [facility] CO2 23 21 - 32 mmol/L LAB CHEMISTRY METHOD 05/15/2025 12:03 PM [facility] Anion Gap 9 3 - 11 LAB CHEMISTRY METHOD 05/15/2025 12:03 PM [facility] Glucose 234(H) 70 - 100 mg/dL LAB CHEMISTRY METHOD 05/15/2025 12:03 PM [facility] BUN 25 5 - 25 mg/dL LAB CHEMISTRY METHOD 05/15/2025 12:03 PM [facility] Creatinine 1.62(H) 0.70 - 1.30 mg/dL LAB CHEMISTRY METHOD 05/15/2025 12:03 PM [facility] eGFR 43(L) >=60 mL/min/1. 73m2 LAB CHEMISTRY METHOD 05/15/2025 12:03 PM [facility] Comment:Calculation based on the Chronic Kidney Disease Epidemiology Collaboration (CKD-EPI) equation refit without adjustment for race. BUN/Creatinine Ratio 15.4 LAB CHEMISTRY METHOD 05/15/2025 12:03 PM [facility] Calcium 9.7 8.5 - 10.5 mg/dL LAB CHEMISTRY METHOD 05/15/2025 12:03 PM [facility] AST (SGOT) 18 10 - 42 unit/L LAB CHEMISTRY METHOD 05/15/2025 12:03 [facility] ALT (SGPT) 27 10 - 60 unit/L LAB CHEMISTRY METHOD 05/15/2025 12:03 PM [facility] Alkaline Phosphatase 92 42 - 121 unit/L LAB CHEMISTRY METHOD 05/15/2025 12:03 PM EDT [facility] Total Protein 6.8 6.0 - 8.0 g/dL LAB CHEMISTRY METHOD 05/15/2025 12:03 PM EDT [facility] Albumin 3.6 3.2 - 5.0 g/dL LAB CHEMISTRY METHOD 05/15/2025 12:03 PM EDT [facility] Total Bilirubin 0.7 0.0 - 1.4 mg/dL LAB CHEMISTRY METHOD 05/15/2025 12:03 PM EDT [facility] Blood Venous blood specimen / Unknown Venipuncture / Unknown 05/15/2025 8:41 AM EDT 05/15/2025 8:41 AM EDT Result [facility] Bahman Corrales MD LAB BLOOD ORDERABLES Final Resul t [facility] [address] [place] [address], [place] [phone] * Falls Risk Assessment (11/11/2023) Pathologist [facility] Falls Risk Assessment Abstracted Result [facility] Historical Provider HEALTH MAINTENANCE Final Result * Depression Screening (11/11/2023) Pathologist [facility] Depression Screening Abstracted Result [facility] Historical Lorraine SANCHEZ HEALTH MAINTENANCE Final Result * Urine Albumin Creatinine Ratio (04/09/2023) Pathologist [facility] Urine Albumin Creatinine Ratio Abstracted Result [facility] Historical Lorraine SANCHEZ HEALTH MAINTENANCE Final Result from Last 3 Months or Most Recently Relevant to Health Maintenance Insurance MEDICARE [facility] Care Teams Window And Door Installer Relationship Specialty Start Date End Date Bahman Corrales MD [address] [place] [id number] PCP - General Internal Medicine 12/05/24
--- OUTSIDE RECORDS SUMMARY | 2025-06-13 17:06 | XMS_ITS | Clinical Summary ---
Author Organization [facility] Address [address] [place] [address] Phone Care Team Providers Care Manager Of Disaster Recovery Name Role Phone Bahman Corrales MD Primary Care Provider [phone] Allergies Active Allergy Reactions Criticality Noted Date [...] 04/10/2021 Overview (04/10/2021): cardiology Dr. Peguero at [facility] Obese class I 04/10/2021 08/20/2021 Type [...] 09/24/2022, 11/15/2021, Additional history exists Influenza Vaccine (#1) 2025 9, 2016, 06/12/2012, Additional history exists Pneumococcal Vaccine: 50+ Years Completed 07/30/2015, 06/21/2012 Hepatitis B Vaccine Aged Out No longe r eligible based on patient's age to complete this topic Insurance Medicare [facility] Medicare [facility] Care Teams Manager Of Disaster Recovery Relationship Specialty Start Date End Date Bahman Corrales MD [address] [place] [id number] PCP - General Internal Medicine 03/05/21
--- OUTSIDE RECORDS SUMMARY | 2025-06-13 17:06 | XMS_ITS | Encounter Summary ---
Author Organization [facility] Address [address] [place] [address] Phone Care Team Providers Care Adventure Challenge Instructor Name Role Phone Bahman Corrales MD Primary Care Provider [phone] Encounter Details Date Type Department Care Team (Late st Contact Info) Description 01/19/2023 Telephone [facility] [address] [place] [phone] Lindsey Neely Social History Tobacco Use Types [...] on filedocumented in this encounter Care Teams Adventure Challenge Instructor Relationship Specialty Start Date End Date Bahman Corrales MD [address] [place] [address] PCP - General Internal Medicine 03/05/21 documented as of this encounter
--- OUTSIDE RECORDS SUMMARY | 2025-06-13 17:06 | XMS_ITS ---
Author Name [facility] Organization Unknown Care Team Organization Name Specialty Phone Email Start Date End Da te [facility] 03/29/2025 [facility] Connie Baker Primary Care 07/22/2023 03/28/20 [facility] ALEX LONG Primary Care 06/17/2022 03/28/20 24
--- OUTSIDE RECORDS SUMMARY | 2025-06-13 17:06 | XMS_ITS | Encounter Summary ---
Author Organization [facility] Address [address] [place] [address] Care Team Providers Care Instructional Designer Name Role Phone Bahman Corrales MD Primary Care Provider [phone] Encounter Details Date Type Department Care Team (Late st Contact Info) Description 05/11/2025 Telephone Internal Medicine - [place] [address] [place] [phone] Bhaman Corrales MD [address] [place] [address] Social History Tobacco Use Types Packs/Day Years Used Date Smoking Tobacco: Former Cigarettes Q uit: 06/09/1980 Smokeless Tobacco: Never Alcohol [...] ed Within the last 3 months, ho tomy many times did you visit the emergency [...] care for your loved ones. For example, childrens club attendant or elderly care for an older adult? [...] on file documented as of this encounter Progress Notes * Ben [place] - 05/12/2025 11:31 AM EDT Called pt informed labs have been ordered to get done * Jojo Blake - 05/11/2025 10:41 AM EDT Patient called and questioned if he should have lab work done before his appointment on 05/17/25 Please advise [phone] documented in this encounter Plan of Treatment Upcoming Encounters Date Type Department Care Team (Late st Contact Info) Description 06/29/2025 8:30 AM EST Office Visit Endocrinology [facility] [address] [place] [address] Connie Baker PA [address] [place] [address] 11/16/2025 9:45 AM EDT Office Visit Internal Medicine - [address] [place] [phone] Bahman Corrales MD [address] [place] [phone] documented as of this encounter Results * (ABNORMAL) Lipid panel with reflex to direct LDL (05/15/2025 8:41 AM EDT) Cholesterol 131 0 - 200 mg/dL LAB CHEMISTRY METHOD 05/15/2025 12:03 PM EDT [facility] Triglycerides 207(H) 0 - 150 mg/dL LAB CHEMISTRY METHOD 05/15/2025 12:03 PM EDT [facility] HDL 50 >=40 mg/dL LAB CHEMISTRY METHOD 05/15/2025 12:03 PM EDT [facility] LDL Calculated 40 0 - 100 mg/dL LAB CHEMISTRY METHOD 05/15/2025 12:03 PM T [facility] Comment:Estimated LDL Calcul ated using equation: Total cholesterol - HDL cholesterol - (Triglycerides/5) VLDL Cholesterol Venancio 41.4 mg/dL LAB CHEMISTRY METHOD 05/15/2025 12:03 PM [facility] Non HDL Chol. (LDL+VLDL) 81 <145 mg/dL LAB CHEMISTRY METHOD 05/15/2025 12:03 PM [facility] Chol/HDL Ratio 2.6 0.0 - 4.4 LAB CHEMISTRY METHOD 05/15/2025 12:03 PM [facility] Blood Venous blood specimen / Unknown Venipuncture / Unknown 05/15/2025 8:41 AM EDT 05/15/2025 8:41 AM EDT us Bahman Corrales MD LAB BLOOD ORDERABLES Final Resul t [facility] [address] [place] [address], [place] [phone] * (ABNORMAL) Comprehensive metabolic panel (05/15/2025 8:41 AM EDT) Sodium 138 133 - 145 mmol/L LAB CHEMISTRY METHOD 05/15/2025 12:03 PM [facility] Potassium 4.7 3.5 - 5.5 mmol/L LAB CHEMISTRY METHOD 05/15/2025 12:03 PM [facility] Chloride 106 96 - 110 mmol/L LAB CHEMISTRY METHOD 05/15/2025 12:03 PM [facility] CO2 23 21 - 32 mmol/L LAB CHEMISTRY METHOD 05/15/2025 12:03 PM [facility] Anion Gap 9 3 - 11 LAB CHEMISTRY METHOD 05/15/2025 12:03 PM [facility] Glucose 234(H) 70 - 100 mg/dL LAB CHEMISTRY METHOD 05/15/2025 12:03 PM [facility] BUN 25 5 - 25 mg/dL LAB CHEMISTRY METHOD 05/15/2025 12:03 PM [facility] Creatinine 1.62(H) 0.70 - 1.30 mg/dL LAB CHEMISTRY METHOD 05/15/2025 12:03 PM [facility] eGFR 43(L) >=60 mL/min/1. 73m2 LAB CHEMISTRY METHOD 05/15/2025 12:03 PM [facility] Comment:Calculation based on the Chronic Kidney Disease Epidemiology Collaboration (CKD-EPI) equation refit without adjustment for race. BUN/Creatinine Ratio 15.4 LAB CHEMISTRY METHOD 05/15/2025 12:03 PM [facility] Calcium 9.7 8.5 - 10.5 mg/dL LAB CHEMISTRY METHOD 05/15/2025 12:03 PM [facility] AST (SGOT) 18 10 - 42 unit/L LAB CHEMISTRY METHOD 05/15/2025 12:03 PM [facility] ALT (SGPT) 27 10 - 60 unit/L LAB CHEMISTRY METHOD 05/15/2025 12:03 PM [facility] Alkaline Phosphatase 92 42 - 121 unit/L LAB CHEMISTRY METHOD 05/15/2025 12:03 PM [facility] Total Protein 6.8 6.0 - 8.0 g/dL LAB CHEMISTRY METHOD 05/15/2025 12:03 PM [facility] Albumin 3.6 3.2 - 5.0 g/dL LAB CHEMISTRY METHOD 05/15/2025 12:03 PM [facility] Total Bilirubin 0.7 0.0 - 1.4 mg/dL LAB CHEMISTRY METHOD 05/15/2025 12:03 PM [facility] Blood Venous blood specimen / Unknown Venipuncture / Unknown 05/15/2025 8:41 AM EDT 05/15/2025 8:41 AM EDT us Bahman Corrales MD LAB BLOOD ORDERABLES Final Resul t [facility] [address] [place] [address], documented in this encounter Visit Diagnoses Diagnosis Type 2 diabetes mellitus with stage 1 chronic kidney disease, without long-term current use of insulin ([facility] V24, [facility] V28)- Primary Hypercholesterolemia Pure hypercholesterolemia documented in this encounter Additional Health Concerns Assessment Noted Time PHQ-9 Depression Total Score: 0 11/09/19 2:57 PM EDT documented as of this encounter Care Teams Instructional Designer Relationship Specialty Start Date End Date Bahman Corrales MD [address] [facility] [address] [place] [address] PCP - General Internal Medicine 12/05/24 documented as of this encounter
--- OUTSIDE RECORDS SUMMARY | 2025-06-13 17:06 | XMS_ITS | Encounter Summary ---
Author Organization [facility] Address [address] [place] [address] Phone Care Team Providers Care Supervisor Facepiece Line Name Role Phone Bahman Corrales MD Primary Care Provider [phone] Encounter Details Date Type Department Care Team (Late st Contact Info) Description 06/02/2022 Telephone [facility] [address] [place] [phone] Shashank Herrera MD Social History Tobacco Use [...] to help. Please call him back at [phone] Thank you documented in this encounter Plan of Treatment Not on file documented as of this encounter Visit Diagnoses Not on filedocumented in this encounter Care Teams Supervisor Facepiece Line Relationship Specialty Start Date End Date Bahman Corrales MD [address] [place] [address] PCP - General Internal Medicine 03/05/21 documented as of this encounter
--- OUTSIDE RECORDS SUMMARY | 2025-06-13 17:06 | XMS_ITS | Encounter Summary ---
Author Organization [facility] Address [address] [place] [address] Care Team Providers Care Lead Loader Name Role Phone Bahman Corrales MD Primary Care Provider [phone] Encounter Details Date Type Department Care Team ([facility] st Contact Info) Description 05/15/2025 Results Follow-Up Internal Medicine - [place] [address] [place] [phone] Bahman Corrales MD [address] [place] [address] Social History Tobacco Use Types [...] care for your loved ones. For example, exceptional children's teacher or elderly care for an older adult? [...] as of this encounter Plan of Treatment Upcoming Encounters Date Type Department Care Team ([facility] Contact Info) Description 06/29/2025 8:30 AM EST Office Visit [address] [phone] Connie Baker PA [address] [place] [address] 11/16/2025 9:45 AM EDT Office Visit Internal Medicine - [place] [address] [facility] [address] [place] [address] Bahman Corrales MD [address] [place] [address] documented as of this encounter Visit Diagnoses Not on filedocumented in this encounter Additional Health Concerns Assessment Noted Time PHQ-9 Depression Total Score: 0 11/09/19 2:57 PM EDT documented as of this encounter Care Teams Lead Loader Relationship Specialty Start Date End Date Bahman Corrales MD [address] [facility] [address] [place] [address] PCP - General Internal Medicine 12/05/24 documented as of this encounter
--- OUTSIDE RECORDS SUMMARY | 2025-06-13 17:06 | XMS_ITS | Data Portability ---
Author Organization [facility] Address [address] [place] [address] Care Team Providers Care Child Day Care Teacher Name Role Phone MERCEDES JOHNSON Primary Care Provider [phone] Assessment No assessment recorded. Plan of Treatment Reminders Order Date Submit Date Provider Last Modified By Organization Details Last Modified Time Details Appointments None recorded. Lab rapid flu (A+B) 2022 023 [email or web address] [facility] [address], [address] [place], [address], 3 14:19:19 SARS CoV 2 (COVID-19) Ag, QL, IA, upper respiratory specimen [email or web address] [facility], [address] [place], [address], 3 14:19:20 Referral None recorded. Procedures None recorded. Surgeries None recorded. Imaging XR, chest, 2 view 2022 023 [email or web address] [facility], [address] [place] [address], [address], 3 15:01:09 Medication Orders doxycycline hyclate 100 mg tablet 2022 023 [email or web address] [facility], [address] [place], [address], 3 14:57:51 ipratropium bromide 42 mcg (0.06 %) nasal spray 2022 023 [facility], [address] [place], [address], 14:20:25 Tessalon Perles 100 mg capsule 2022 023 [facility], [address] [place], [address], 14:20:23 doxycycline hyclate 100 mg capsule 2022 023 [facility], [address] [place], [address], 11:44:09 Patient TargetsNo targets recorded. Patient Instructions Encounter Date Encounter Id Patient Instructions Last Modified By Organization Details Last Modified Time 01/04/2023 [id number] Sinusitis is an infection of the lining [...] care for yourself at home? Take an eitt-nfp-wtzqfpu pain medicine. Avoid Ibuprofen, Aleve and Aspirin if . If the doctor prescribed antibiotics, take them as directed. Do not stop taking them just because you feel better. You need to take the full course of antibiotics. Be careful when taking urxb-atu-xyrejxv cold or influenza (flu) medicines and Tylenol [...] worse. [email or web address] Not available 01/04/2023 11:44:04 03/05/2023 [id number] sinusitis [email or web address] Not available 03/05 14:20:21 cough: care instructions [email or web address] Not available 03/05/2023 14:19:18 Based on your [...] watery post nasal drip. 6. Saline Nasal Abernathy is recommended. Since an antibiotic was prescribed [...] notice immediate response. Thank you for using [facility] today, please feel free to contact our office if you have any questions or concerns. [email or web address] Not available 03/05/2023 14:20:37 Reason for Referral None Reported. Results Created Date Observation Date Name Description Value Unit Range Abnormal Flag Note LastModifiedBy Organization Detail LastModifiedTime 03/05/20 23 03/05/2023 SARS CoV 2 (COVI D-19) Ag, QL, IA, upper respi rator y speci men Unknown Analyte negati ve Not Available [facility] [address] [place], [address], 03/05/2023 14:13:54 03/05/20 23 03/05/2023 SARS CoV 2 (COVI D-19) Ag, QL, IA, upper respi rator y speci men Unknown Analyte negati ve Not Available [address] [place], [address], 03/05/2023 14:13:54 03/05/20 23 03/05/2023 SARS CoV 2 (COVI D-19) Ag, QL, IA, upper respi rator y speci men Unknown Analyte yes Not Available [address] [place] [address] [address] [place], [address], 03/05/2023 14:13:54 03/05/20 23 03/05/2023 rapid flu (A+B) Unknown Analyte negati ve Not Available [address] [place], [address], 03/05/2023 14:13:27 03/05/20 23 03/05/2023 rapid flu (A+B) Unknown Analyte negati ve Not Available [address] [place], [address], 03/05/2023 14:13:27 03/05/20 23 03/05/2023 rapid flu (A+B) Unknown Analyte Negati ve Not Available [address] [place], [address], 03/05/2023 14:13:27 03/05/20 23 03/05/2023 rapid flu (A+B) Unknown Analyte Yes Not Available [facility] [address] [place], [address], 03/05/2023 14:13:27 03/05/20 23 03/05/2023 XR, chest , 2 view No observ ation record ed. [email or web address] [facility] [address] [facility], [place], [address], 03/05/2023 16:14:17 Result Notes None recorded. Problems Name Problem SNOMED Code Status Onset Date Resolution Date Notes Provider Name and Address Organization Details Recorded Time Diabetes mellitus 80753452 Active BERNARDO GARRISON RA null, PA - [facility] 11:19:37 Hypertensive disorder 59277047 Active BERNARDO GARRISON RA null, PA - [facility] 11:19:47 Hypercholestero lemia 34520291 Active BERNARDO GARRISON RA null, PA - [facility] 11:19:55 Problem Notes None recorded. Procedures Surgical History Date Name Laterality Status Provider Name and Address Organization Details Recorded Time placement of stent in cardiac conduit completed BERNARDO MONTAÑO PA - [facility] 01/04/2023 11:20:55 vitrectomy completed Kathy Millard PA - [facility] 03/05/2023 13:53:45 Imaging Results None recorded. Procedure Notes None recorded. Medical Equipment None Reported. Allergies Allergen ID Allergen Name Allergen Category Reaction Reaction Severity Criticality Documentation Date Start Date Code Code System Note Provider Name and Address Organization Details Recorded Time 306935 Product containin g penicilli n (product) medicatio n hives Not available Not available 01/04/2023 80192 8001 SNOMED GYPSY Macias RA - [facility] 3 11:17:30 Medications Name Sig Start [...] bromide 42 mcg (0.06 %) nasal spray Abernathy 2 sprays 3 times a day by [...] Pulse oximetry Heart rate Body temperature Systolic And Diastolic Provider Name and Address Organization Details Last Updated DateTime 3 175.26 cm 29.2 kg/m2 37363.2 9 g 5 18 /min 98 % 98 % 67 /min 97.9 [degF] 103/63 mm[Hg] BERNARDO GARRISON RA PA - [facility] 3 11:16:54 Date Recorded Body height Body mass index (BMI) Body weight Body temperature Respiratory rate Heart rate Oxygen saturation Oxygen saturation in Arterial blood by Pulse oximetry Pain severity - 0-10 verbal numeric rating [Score] - Reported Systolic And Diastolic Provider Name and Address Organization Details Last Updated DateTime 3 175.26 cm 28.8 kg/m2 53712.5 1 g 98.2 [degF] 18 /min 75 /min 98 % 98 % 3 130/76 mm[Hg] Kathy Millard PA - [facility] 13:54:57 Social History Question Answer Notes LastModified by Organizat ion Details LastModified Time Tobacco Smoking Status Never Smoker BERNARDO coughlin, PA - [facility] 01/04/2023 11:20:41 Have You Had Direct Contact, Or Contact During Intimacy, With Monkeypox Rash, Scabs, Or Body Fluids From A Person With Monkeypox? No Information not available 01/04/2023 Have You Recently Traveled Abroad? No Information not available 01/04/2023 Sex: Unknown Functional Status Question Answer Note LastModified by Organizat ion Details LastModified Time Do you use any [...] quadrivalent, PF 05/11/2020 completed BERNARDO coughlin PA - [facility] 01/04/2023 11:17:15 Influenza, high-dose, quadrivalent, PF 07/29/2021 completed BERNARDO coughlin PA - [facility] 01/04/2023 11:17:16 COVID-19, mRNA, LNP-S, PF, 100 mcg/0.5mL dose or 50 mcg/0.25mL dose 09/07/2020 completed BERNARDO coughlin PA - [facility] 01/04/2023 11:17:16 COVID-19, mRNA, LNP-S, PF, 100 mcg/0.5mL dose or 50 mcg/0.25mL dose 10/05/2020 completed BERNARDO AVERY-FAULKNER null, PA - [facility] 01/04/2023 11:17:16 COVID-19, mRNA, LNP-S, PF, 100 mcg/0.5mL dose or 50 mcg/0.25mL dose 06/17/2021 completed BERNARDO AVERY-FAULKNER null, PA - [facility] 01/04/2023 11:17:16 Tdap 04/05/2019 completed BERNARDO AVERY-FAULKNER null, PA - [facility] 01/04/2023 11:17:16 Influenza, high-dose, trivalent, PF 05/25/2018 completed BERNARDO AVERY-FAULKNER null, PA - [facility] 01/04/2023 11:17:16 Influenza, high-dose, trivalent, PF 06/24/2019 completed BERNARDO AVERY-FAULKNER null, PA - [facility] 01/04/2023 11:17:16 Past Encounters Encounter ID Performer Location Encounter Start Date Encounter Closed Date Diagnosis/Indication Diagnosis SNOMED-CT Code Diagnosis ICD10 Code Diagnosis IMO Codes Diagnosis Note [id number] [address] [place] [address] 11/20/2021 10:37:41 11/20/2021 12:22:16 [id number] [address] [place] [address] 08/15/2021 14:08:53 08/15/2021 17:06:58 [id number] Keanu Gomes NP [address] [place] [address] 01/04/2023 11:02:19 01/04/2023 11:46:26 Acute sinusitis 73402490 J01.90 [id number] GYPSY GRANT [address] [place] [address] 03/05/2023 12:37:47 03/05/2023 15:01:09 Acute bronchitis 91466283 J20.9 Acute sinusitis 32134077 J01.90 Health Concerns Section Related Observation LastModified by Organization Detai ls LastModified Time None Recorded Concern Status LastModified by Organization Details LastModified Time None Recorded Advance Directives Directive None Recorded Payers Insurance Date Sequence Insurance Name Policy Number Policy Johnson Covered Member ID Johnson Member ID Guarantor Name 03/05/2023 1 [place]ICARE [place]: [employer] Dany Dudley [id number] Dany Dudley 03/05/2023 2 [facility] - PREFERRED (MEDICARE SUPPLEMENT) [id number] Dany Dudley [id number] Dany Carrn Notes Date Note Type Note Provider Name and Address Organization Details Recorded Time 3 text/html Sinus Complaints UCReported by PatientHPIFor location, patient reportssinus pain,facial pain, andsinus pressure. For associated symptoms, patient reportsdifficulty breathing,post nasal drip,nasal passage blockage __, andcoughbut reportsno fever,no nausea or vomiting,no sore throat,no ear fullness,no nasal itching,no eye itching, andno dizziness. For quality, patient reportsworseningbut reportsminimal discomfortandclear. For context, patient reportsworse with environmental exposurebut reportsno recent upper respiratory infection,no recent sick contacts, andnot worse with seasonal allergen exposure. For onset/timing, patient reportsworse in amandworse in pm. For duration, patient reportsfrequent. For severity, patient reportsmoderate. For risk factors, patient reportsno current smoking or tobacco useandno history of nasal trauma. For alleviating factors, patient reportsoral steroids. For aggravating factors, patient reportsworse during an upper respiratory infection (a cold)andworse with excess fatigue. For prior treatment, patient reportsoral decongestant. Shortness of BreathReported by Patient CongestionReported by Patient Keanu Gomes NP [address] [place], [address], PA - [facility] 01/04/2023 11:44:25 3 text/html CoughReported by PatientHPIFor quality, patient reportsproductive coughbut reportsintermittent. For source of patient information, patient reportsinformation obtained from patientandpatient arrived at urgent care ambulatory. For severity, patient reportsmoderate. For duration, patient reportsintermittent,___ days, andsymptoms lasting over 2 weeks. For context, patient reportspatient denies vapingandnon-smoker. For associated symptoms, patient reportsno fever,no chills,no chest pain, andno heartburn.77 Y.O male pt presents with ongoing sinus congestion, pressure and intermittent cough x 3 weeks. Pt denies fever, chest pain or SOB. GYPSY GRANT [address] [place], [address], PA - [facility] 03/06/2023 11:41:55
[2025-06-13 18:11] LABS: Hematocrit 35.8 % (42.0-52.0); Hemoglobin 11.9 g/dl (14.0-18.0); Mean Corpuscular HGB Conc 33.2 g/dl (31.0-36.0); Mean Corpuscular Hemoglobin 31.5 pg (27.0-33.0); Mean Corpuscular Volume 94.7 fL (80.0-98.0); NRBC Abs Auto 0.000 X10*3/uL (0.0-0.012); NRBC Pct Auto 0.0 /100WBC (0.0-0.2); Platelet Count 200 X10*3/uL (160-400); Red Blood Count 3.78 X10*6/uL (4.60-5.80); White Blood Count 5.1 X10*3/uL (4.8-10.8)
[2025-06-13 18:26] LABS: Anion Gap 13 (12-20); Blood Urea Nitrogen 30 mg/dL (9-16); Calcium 9.4 mg/dL (8.4-10.2); Carbon Dioxide 24 mmol/L (22-29); Chloride 107 mmol/L (96-108); Estimated Glomerular Filt Rate 48; Potassium 4.5 mmol/L (3.3-5.1); Sodium 139 mmol/L (135-145)
== END 2025-06-13 14:03 | disposition home or self-care (01) ==
LOC: HO.HKASLDS 14:02
PROVIDERS: Internal Medicine Hypertension Specialist; PCP Internal Medicine; Visit Provider Psychiatry & Neurology Neurology
DX: N18.30 Chronic kidney disease, stage 3 unspecified (principal)
CPT/HCPCS: 36415; 80048; 85027

== ENCOUNTER 2025-06-21 08:17 | Outpatient (REF) | payer MEDICARE, SELFPAY ==
--- OUTSIDE RECORDS SUMMARY | 2025-06-21 09:30 | XMS_ITS | Data Portability ---
Author Organization [facility], [address] Address [address] [place] [address] Care Team Providers Care Director Public Policy Name Role Phone MERCEDES JOHNSON Primary Care Provider [phone] Assessment No assessment recorded. Plan of Treatment Reminders Order Date Submit Date Provider Last Modified By Organization Details Last Modified Time Details Appointments None recorded. Lab rapid flu (A+B) 2022 023 [facility], [address] [place], [address], 3 14:19:19 SARS CoV 2 (COVID-19) Ag, QL, IA, upper respiratory specimen 2022 023 [facility] [address], [address] [place], [address], 3 14:19:20 Referral None recorded. Procedures None recorded. Surgeries None recorded. Imaging XR, chest, 2 view 2022 023 [email or web address] [facility], [address] [place] [address], [address], 3 15:01:09 Medication Orders doxycycline hyclate 100 mg tablet 2022 023 [email or web address] [facility], [address] [place], [address], 3 14:57:51 ipratropium bromide 42 mcg (0.06 %) nasal spray 2022 023 [facility], [address] [place], [address], 14:20:25 Tessalon Perles 100 mg capsule 2022 023 [facility], [address] [place], [address], 14:20:23 doxycycline hyclate 100 mg capsule 2022 023 [facility], [address] [place], [address], 11:44:09 Patient TargetsNo targets recorded. Patient Instructions Encounter Date Encounter Id Patient Instructions Last Modified By Organization Details Last Modified Time 01/04/2023 [id number] Sinusitis is an infection of the lining [...] care for yourself at home? Take an nuhg-zvj-ryxapdj pain medicine. Avoid Ibuprofen, Aleve and Aspirin if . If the doctor prescribed antibiotics, take them as directed. Do not stop taking them just because you feel better. You need to take the full course of antibiotics. Be careful when taking xirk-few-ilkrpah cold or influenza (flu) medicines and Tylenol [...] worse. [email or web address] Not available 01/04/2023 11:44:04 03/05/2023 [id number] sinusitis [email or web address] Not available 03/05 14:20:21 cough: care instructions [...] watery post nasal drip. 6. Saline Nasal [place] is recommended. Since an antibiotic was prescribed [...] notice immediate response. Thank you for using [facility] today, please feel free to contact our office if you have any questions or concerns. [email or web address] Not available 03/05/2023 14:20:37 Reason for Referral None Reported. Results Created Date Observation Date Name Description Value Unit Range Abnormal Flag Note LastModifiedBy Organization Detail LastModifiedTime 03/05/20 23 03/05/2023 SARS CoV 2 (COVI D-19) Ag, QL, IA, upper respi rator y speci men Unknown Analyte negati ve Not Available [facility] [address] [place], [address], 03/05/2023 14:13:54 03/05/20 23 03/05/2023 SARS CoV 2 (COVI D-19) Ag, QL, IA, upper respi rator y speci men Unknown Analyte negati ve Not Available [address] [place], [address], 03/05/2023 14:13:54 03/05/20 23 03/05/2023 SARS CoV 2 (COVI D-19) Ag, QL, IA, upper respi rator y speci men Unknown Analyte yes Not Available [id number] [place] [address] [address] [place], [address], 03/05/2023 14:13:54 03/05/20 23 03/05/2023 rapid flu (A+B) Unknown Analyte negati ve Not Available [address] [place], [address], 03/05/2023 14:13:27 03/05/20 23 03/05/2023 rapid flu (A+B) Unknown Analyte negati ve Not Available [address] [place], [address], 03/05/2023 14:13:27 03/05/20 23 03/05/2023 rapid flu (A+B) Unknown Analyte Negati ve Not Available [address] [place], [address], 03/05/2023 14:13:27 03/05/20 23 03/05/2023 rapid flu (A+B) Unknown Analyte Yes Not Available [facility] [address] [place], [address], 03/05/2023 14:13:27 03/05/20 23 03/05/2023 XR, chest , 2 view No observ ation record ed. [facility] [address] [facility], [place], [address], 03/05/2023 16:14:17 Result Notes None recorded. Problems Name Problem SNOMED Code Status Onset Date Resolution Date Notes Provider Name and Address Organization Details Recorded Time Diabetes mellitus 75442191 Active BERNARDO GARRISON RA null, [place] - [facility] 11:19:37 Hypertensive disorder 33933887 Active BERNARDO GARRISON RA null, [place] - [facility] 11:19:47 Hypercholestero lemia 61903813 Active BERNARDO GARRISON RA null, PA - [...] Name and Address Organization Details Recorded Time 877186 Product containin g penicilli n (product) medicatio n hives Not available Not available 01/04/2023 98633 8001 SNOMED [facility] Macias [facility] - [facility] [...] bromide 42 mcg (0.06 %) nasal spray [place] 2 sprays 3 times a day by [...] Updated DateTime 3 175.26 cm 29.2 kg/m2 28461.2 9 g 5 18 /min 98 % [...] Updated DateTime 3 175.26 cm 28.8 kg/m2 99747.5 1 g 98.2 [degF] 18 /min 75 [...] ICD10 Code Diagnosis IMO Codes Diagnosis Note [id number] [address] [place] [address] 11/20/2021 10:37:41 11/20/2021 12:22:16 [id number] [address] [place] [address] 08/15/2021 14:08:53 08/15/2021 17:06:58 [id number] Keanu Gomes NP [address] [place] [address] 01/04/2023 11:02:19 01/04/2023 11:46:26 Acute sinusitis 70910700 J01.90 [id number] [facility] [address] [place] [address] 03/05/2023 12:37:47 03/05/2023 15:01:09 Acute bronchitis 74678345 J20.9 Acute sinusitis 75939585 J01.90 Health Concerns Section Related Observation LastModified by Organization Detai ls LastModified Time None Recorded Concern Status LastModified by Organization Details LastModified Time None Recorded Advance Directives Directive None Recorded Payers Insurance Date Sequence Insurance Name Policy Number Policy Johnson Covered Member ID Johnson Member ID Guarantor Name 03/05/2023 1 [place]: [employer] Dany Dudley [id number] Dany Dudley 03/05/2023 2 [facility] - PREFERRED (MEDICARE SUPPLEMENT) [id number] Dany Dudley [id number] Dany Carrn Notes Date Note Type [...] Keanu Gomes NP [address] [place], [address], [place] - [facility] 01/04/2023 11:44:25 3 [...] SOB. [facility] GRANT [address] [place], [address], [place] - [facility] 03/06/2023 11:41:55
[2025-06-21 13:56] LABS: Anion Gap 12 (12-20); Blood Urea Nitrogen 32 mg/dL (9-16); Calcium 9.8 mg/dL (8.4-10.2); Carbon Dioxide 24 mmol/L (22-29); Chloride 107 mmol/L (96-108); Estimated Glomerular Filt Rate 41; Potassium 4.7 mmol/L (3.3-5.1); Sodium 138 mmol/L (135-145)
== END 2025-06-21 08:18 | disposition home or self-care (01) ==
LOC: HO.HKASLDS 08:17
PROVIDERS: PCP Internal Medicine; Visit Provider Internal Medicine Hypertension Specialist
DX: C61 Malignant neoplasm of prostate (principal); I12.9 Hypertensive chronic kidney disease with stage 1 through stage 4 chronic kidney disease, or unspecified chronic kidney disease; N18.30 Chronic kidney disease, stage 3 unspecified; Z79.1 Long term (current) use of non-steroidal anti-inflammatories (NSAID); E11.22 Type 2 diabetes mellitus with diabetic chronic kidney disease; N25.81 Secondary hyperparathyroidism of renal origin; R53.83 Other fatigue; T38.7X5A Adverse effect of androgens and anabolic congeners, initial encounter; Z79.4 Long term (current) use of insulin; Z79.84 Long term (current) use of oral hypoglycemic drugs; Z79.899 Other long term (current) drug therapy
CPT/HCPCS: 36415; 80048; 99212

== ENCOUNTER 2025-06-21 08:17 | Outpatient (AMB) | payer MEDICARE, SELFPAY ==
--- OUTSIDE RECORDS SUMMARY | 2025-06-21 08:23 | XMS_ITS | Encounter Summary ---
Author Organization [facility] Address [address] [place] [address] Phone Care Team Providers Care Coffee Farmer Name Role Phone Bahman Corrales MD Primary Care Provider [phone] Encounter Details Date Type Department Care Team (Late st Contact Info) Description 12/16/2022 Telephone [facility] [address] [place] [phone] Lindsey Neely Social History Tobacco Use Types [...] on filedocumented in this encounter Care Teams Coffee Farmer Relationship Specialty Start Date End Date Bahman Corrales MD [address] [place] [address] PCP - General Internal Medicine 03/05/21 documented as of this encounter
--- OUTSIDE RECORDS SUMMARY | 2025-06-21 08:23 | XMS_ITS | Clinical Summary ---
Author Organization [facility] Address [address] [place] [address] Phone Care Team Providers Care Contract Programmer Name Role Phone Bahman Corrales MD Primary Care Provider [phone] Allergies Active Allergy Reactions Criticality Noted Date Comments Insulin Glargine 07/17/2023 Other reaction(s): Hives Lantuss-Forte Other 11/03/2022 Rash, swollen lips Penicillins Hives 08/29/2010 Medications B complex tablet Active insulin syringe-needle U-100 1 mL 31 gauge x 15/64 syringe USE DIRECTED WITH INSULIN PEN THREE TIMES A DAY 06/07/2024 Active glucose blood test strip USE TO CHECK BLOOD SUGAR THREE TIMES A DAY DIRECTED 05/10/2024 Active lancets (OneTouch Delica Plus Lancet) 33 gauge USE TO CHECK BLOOD SUGAR THREE TIMES A DAY DIRECTED 05/10/2024 Active multivitamin (MULTI-DAY ORAL) Take 1 Tab by mouth daily. 12/19/2016 Active alpha lipoic acid 600 mg capsule Take by mouth. Active aspirin 81 mg chewable tablet Take 81 mg by mouth daily. Active cholecalciferol (VITAMIN D-3) 1,250 mcg (50,000 unit) capsule Take 1,000 Int'l Units by mouth. 03/30/2018 Active cyanocobalamin (VITAMIN B-12) 1,000 mcg tablet Take 1 tablet by mouth daily for 360 days. 06/26/2021 Active dutasteride (AVODART) 0.5 mg capsule Take 1 Capsule by mouth every other day. Active leuprolide mesylate, 6 month, (Camcevi, 6 month,) 42 mg syringe Inject 42 mg into the skin Every 6 Months. Active metoprolol tartrate (LOPRESSOR) 50 mg tablet Take 25 mg by mouth 2 times daily. 01/22/2018 Active blood-glucose sensor (FreeStyle Jessie 3 Sensor) device Use one sensor every 14 days E11.9 6 each 2 08/12/2024 Active insulin aspart (NovoLOG FlexPen) 100 unit/mL (3 mL) injection pen Use 18 to 30 units 3 times a day before meals 90 mL 1 10/25/2024 Active Easy Touch 31 gauge x 5/16 needleIndicatio ns:Type 2 diabetes mellitus with stage 3b chronic kidney disease, with long-term current use of insulin ([facility] V24, [facility] V28) USE WITH INSULIN PEN THREE TIMES A DAY 300 each 3 11/10/2024 Active glipiZIDE (GLUCOTROL) 5 mg tablet TAKE ONE TABLET BY MOUTH TWO TIMES A DAY BEFORE MEALS 180 tablet 1 03/06/2025 Active atorvastatin (LIPITOR) 40 mg tablet Take 1 tablet (40 mg total) by mouth at bedtime. Active Active Problems Problem Noted Date Diagnosed Date Hematochezia 11/28/2024 History of adenomatous polyp of colon 11/28/2024 CAD (coronary artery disease) 06/29/2024 Overview (06/29/2024): cardiology Dr. Peguero at [facility] Obesity (BMI 30.0-34.9) 06/29/2024 DM type 2 (diabetes mellitus , type 2) ([facility] V24, [facility] V28) 06/29/2024 Assessment & Plan (11/10/2024 12:13 PM EDT): Diabetes under control on glipizide and NovoLog insulin. Recent A1c was 6.5. Orders: CBC and differential; Future Comprehensive metabolic panel; Future Lipid panel with reflex to direct LDL; Future Thyroid stimulating hormone; Future Prostate cancer ([facility] V24, [facility] V28) 07/17 Overview (06/29/2024): Will start radiation 08/04/2023--seeing Dr. Erihc Rico (U) Hyperlipidemia 01/27/2018 Hypertension 01/27/2018 Assessment & Plan [...] 9:45 AM EDT Office Visit Internal Medicine [address] [phone] Bahman Corrales MD Type 2 diabetes mellitus with stage 1 chronic kidney disease, without long-term current use of insulin ([facility] V24, [facility] V28) (Primary Dx); Hypercholesterolemia ; Stage 2 chronic kidney disease 05/15/2025 Results Follow-Up Internal Medicine - [address] [phone] Bahman Corrales MD 05/11/2025 Telephone Internal Medicine - [address] [place] [address] Bahman Corrales MD from Last 3 Months [...] type 2 (diabetes mellitus , type 2) ([facility] V24, [facility] V28) DX:DM type 2 (diabetes motnserrat itus, type 2) ([facility]) HTN (hypertension) DX:HTN (hyper tension) Hyperlipidemia DX:Hyperlipidemi a CAD (coronary artery disease) DX :CAD (coronary artery disease); COMMENT: cardiology Dr. Peguero at [facility] Obesity (BMI 30.0-34.9) DX:Obesi ty (BMI 30.0-34.9) BPH (benign prostatic hyperplasia) DX:BPH (benign prostatic hyperplasia) Prostate cancer ([facility] V24, [facility] V28) Family History Medical History Relation Name Comments Throat cancer Father Relation Name Status Comments Father Mother Social History Tobacco Use Types Packs/Day Years Used Date Smoking Tobacco: Former Cigarettes 0.8 Q uit: 06/09/1980 Smokeless Tobacco: Never Tobacco [...] care for your loved ones. For example, children counselor or elderly care for an older adult? [...] 06/29/2025 8:30 AM EST Office Visit Endocrinology - [place] [address] [place] [address] Connie Baker PA [address] [place] [address] 11/16/2025 9:45 AM EDT Office Visit Internal Medicine - [place] [address] [facility] [address] [place] [phone] Bahman Corrales MD [address] [place] [phone] Health Maintenance Due Date Last Done Comments [...] disease, without long-term current use of insulin ([facility] V24, [facility] V28) Hypercholesterolem ia THYROID STIMULATING HORMONE Routine 05/15/2025 8:41 AM EDT Primary hypertension Hypercholesterolem ia Type 2 diabetes mellitus with stage 1 chronic kidney disease, without long-term current use of insulin ([facility] V24, [facility] V28) CBC AND DIFFERENTIAL Routine 05/15/2025 8:41 AM EDT Type 2 diabetes mellitus with stage 1 chronic kidney disease, without long-term current use of insulin ([facility] V24, [facility] V28) Hypercholesterolem ia COMPREHENSIVE METABOLIC PANEL Routine 05/15/2025 8:41 AM EDT Type 2 diabetes mellitus with stage 1 chronic kidney disease, without long-term current use of insulin ([facility] V24, [facility] V28) Hypercholesterolem ia LIPID PANEL WITH REFLEX TO DIRECT LDL Routine 05/15/2025 8:41 AM EDT Type 2 diabetes mellitus with stage 1 chronic kidney disease, without long-term current use of insulin ([facility] V24, [facility] V28) Hypercholesterolem ia HEMOGLOBIN A1C Routine 05/15/2025 8:41 AM EDT Type 2 diabetes mellitus with stage 1 chronic kidney disease, without long-term current use of insulin ([facility] V24, [facility] V28) DEPRESSION SCREENING Routine 11/11/2023 FALLS RISK ASSESSMENT Routine 11/11/2023 URINE ALBUMIN CREATININE RATIO Routine 04/09/2023 from Last 3 Months or Most Recently Relevant to Health Maintenance Results * (ABNORMAL) Lipid panel with reflex to direct LDL (05/15/2025 8:41 AM EDT) Cholesterol 131 0 - 200 mg/dL LAB CHEMISTRY METHOD 05/15/2025 12:03 PM [facility] Triglycerides 207(H) 0 - 150 mg/dL LAB CHEMISTRY METHOD 05/15/2025 12:03 PM [facility] HDL 50 >=40 mg/dL LAB CHEMISTRY METHOD 05/15/2025 12:03 PM [facility] LDL Calculated 40 0 - 100 mg/dL LAB CHEMISTRY METHOD 05/15/2025 12:03 PM [facility] Comment:Estimated LDL Calcul ated using equation: Total cholesterol - HDL cholesterol - (Triglycerides/5) VLDL Cholesterol Venancio 41.4 mg/dL LAB CHEMISTRY METHOD 05/15/2025 12:03 PM EDT [facility] Non HDL Chol. (LDL+VLDL) 81 <145 mg/dL LAB CHEMISTRY METHOD 05/15/2025 12:03 PM [facility] Chol/HDL Ratio 2.6 0.0 - 4.4 LAB CHEMISTRY METHOD 05/15/2025 12:03 PM [facility] Blood Venous blood specimen / Unknown Venipuncture / Unknown 05/15/2025 8:41 AM EDT 05/15/2025 8:41 AM EDT us Bahman Corrales MD LAB BLOOD ORDERABLES Final Resul t [facility] [address] [place] [address], [place] [phone] * (ABNORMAL) CBC auto differential (05/15/2025 8:41 AM EDT) WBC 4.8 4.8 - 10.8 K/mcL LAB HEMETOLOGY METHOD 05/15/2025 11:32 AM [facility] RBC 4.00(L) 4.50 - 5.50 M/mcL LAB HEMETOLOGY METHOD 05/15/2025 11:32 AM [facility] Hemoglobin 12.4(L) 13.5 - 17.5 g/dL LAB HEMETOLOGY METHOD 05/15/2025 11:32 AM [facility] Hematocrit 37.6(L) 42.0 - 54.0 % LAB HEMETOLOGY METHOD 05/15/2025 11:32 AM [facility] MCV 93.8 79.0 - 98.0 FL LAB HEMETOLOGY METHOD 05/15/2025 11:32 AM [facility] MCH 30.9 27.0 - 32.0 pcg LAB HEMETOLOGY METHOD 05/15/2025 11:32 AM [facility] MCHC 33.0 32.0 - 37.0 g/dL LAB HEMETOLOGY METHOD 05/15/2025 11:32 AM [facility] RDW 14.1 11.0 - 15.0 % LAB HEMETOLOGY METHOD 05/15/2025 11:32 AM [facility] Platelets 199 130 - 400 K/mcL LAB HEMETOLOGY METHOD 05/15/2025 11:32 AM [facility] MPV 9.2 7.0 - 11.0 FL LAB HEMETOLOGY METHOD 05/15/2025 11:32 AM [facility] NRBC 0.0 <1.0 % LAB HEMETOLOGY METHOD 05/15/2025 11:32 AM [facility] NRBC Absolute 0.00 <0.10 K/mcL LAB HEMETOLOGY METHOD 05/15/2025 11:32 AM [facility] Neutrophils Relative 74.3 % LAB HEMETOLOGY METHOD 05/15/2025 11:32 AM [facility] Lymphocytes Relative 13.2 % LAB HEMETOLOGY METHOD 05/15/2025 11:32 AM [facility] Monocytes Relative 7.2 % LAB HEMETOLOGY METHOD 05/15/2025 11:32 AM [facility] Eosinophils Relative 4.3 % LAB HEMETOLOGY METHOD 05/15/2025 11:32 AM [facility] Basophils Relative 0.6 % LAB HEMETOLOGY METHOD 05/15/2025 11:32 AM [facility] Immature Granulocytes Relative 0.4 % LAB HEMETOLOGY METHOD 05/15/2025 11:32 AM [facility] Neutrophils Absolute 3.59 1.50 - 7.00 K/mcL LAB HEMETOLOGY METHOD 05/15/2025 11:32 AM [facility] Lymphocytes Absolute 0.64(L) 1.00 - 5.00 K/mcL LAB HEMETOLOGY METHOD 05/15/2025 11:32 AM EDT [facility] Monocytes Absolute 0.35 0.20 - 1.00 K/mcL LAB HEMETOLOGY METHOD 05/15/2025 11:32 AM EDT [facility] Eosinophils Absolute 0.21 0.00 - 0.50 K/mcL LAB HEMETOLOGY METHOD 05/15/2025 11:32 AM EDT [facility] Basophils Absolute 0.03 0.00 - 0.20 K/mcL LAB HEMETOLOGY METHOD 05/15/2025 11:32 AM EDT [facility] Immature Granulocytes Absolute 0.02 0.00 - 0.03 K/mcL LAB HEMETOLOGY METHOD 05/15/2025 11:32 AM EDT [facility] Blood Venous blood specimen / Unknown Venipuncture / Unknown 05/15/2025 8:41 AM EDT 05/15/2025 8:41 AM EDT us Bahman Corrales MD LAB BLOOD ORDERABLES Final Resul t Performing Organization Address City/[facility]/ZIP Co de Phone Number [facility] [address] [place] [address], * Thyroid stimulating hormone (05/15/2025 8:41 AM EDT) TSH 2.79 0.40 - 4.00 mcIU/mL LAB CHEMISTRY METHOD 05/15/2025 1:36 PM EDT [facility] Blood Venous blood specimen / Unknown Venipuncture / Unknown 05/15/2025 8:41 AM EDT 05/15/2025 8:41 AM EDT us Bahman Corrales MD LAB BLOOD ORDERABLES Final Resul t [facility] [address] [place] [address], [place] [phone] * (ABNORMAL) Hemoglobin A1c (05/15/2025 8:41 AM EDT) [facility] Hemoglobin A1C 6.8(H) <6.5 % LAB CHEMISTRY METHOD 05/15/2025 1:34 PM EDT [facility] Mean Bld Glu Estim. 148 mg/dL LAB CHEMISTRY METHOD 05/15/2025 1:34 PM T [facility] Blood Venous blood specimen / Unknown Venipuncture / Unknown 05/15/2025 8:41 AM EDT 05/15/2025 8:41 AM EDT Bahman Corrales MD LAB BLOOD ORDERABLES Final Resul t [facility] [address] [place] [address], [place] [phone] * (ABNORMAL) Comprehensive metabolic panel (05/15/2025 8:41 AM EDT) [facility] Sodium 138 133 - 145 mmol/L LAB CHEMISTRY METHOD 05/15/2025 12:03 PM [facility] Potassium 4.7 3.5 - 5.5 mmol/L LAB CHEMISTRY METHOD 05/15/2025 12:03 PM [facility] Chloride 106 96 - 110 mmol/L LAB CHEMISTRY METHOD 05/15/2025 12:03 PM [facility] CO2 23 21 - 32 mmol/L LAB CHEMISTRY METHOD 05/15/2025 12:03 PM [facility] Anion Gap 9 3 - 11 LAB CHEMISTRY METHOD 05/15/2025 12:03 PM [facility] Glucose 234(H) 70 - 100 mg/dL LAB CHEMISTRY METHOD 05/15/2025 12:03 PM [facility] BUN 25 5 - 25 mg/dL LAB CHEMISTRY METHOD 05/15/2025 12:03 PM [facility] Creatinine 1.62(H) 0.70 - 1.30 mg/dL LAB CHEMISTRY METHOD 05/15/2025 12:03 PM [facility] eGFR 43(L) >=60 mL/min/1. 73m2 LAB CHEMISTRY METHOD 05/15/2025 12:03 PM [facility] Comment:Calculation based on the Chronic Kidney Disease Epidemiology Collaboration (CKD-EPI) equation refit without adjustment for race. BUN/Creatinine Ratio 15.4 LAB CHEMISTRY METHOD 05/15/2025 12:03 PM [facility] Calcium 9.7 8.5 - 10.5 mg/dL LAB CHEMISTRY METHOD 05/15/2025 12:03 PM [facility] AST (SGOT) 18 10 - 42 unit/L LAB CHEMISTRY METHOD 05/15/2025 12:03 PM [facility] ALT (SGPT) 27 10 - 60 unit/L LAB CHEMISTRY METHOD 05/15/2025 12:03 PM [facility] Alkaline Phosphatase 92 42 - 121 unit/L LAB CHEMISTRY METHOD 05/15/2025 12:03 PM [facility] Total Protein 6.8 6.0 - 8.0 g/dL LAB CHEMISTRY METHOD 05/15/2025 12:03 PM [facility] Albumin 3.6 3.2 - 5.0 g/dL LAB CHEMISTRY METHOD 05/15/2025 12:03 PM [facility] Total Bilirubin 0.7 0.0 - 1.4 mg/dL LAB CHEMISTRY METHOD 05/15/2025 12:03 PM [facility] Blood Venous blood specimen / Unknown Venipuncture / Unknown 05/15/2025 8:41 AM EDT 05/15/2025 8:41 AM EDT us [place] Antoni MD LAB BLOOD ORDERABLES Final Resul t [facility] [address] [place] [address], [place] [phone] * Falls Risk Assessment (11/11/2023) Falls Risk Assessment Abstracted Historical Provider HEALTH MAINTENANCE Final Result * Depression Screening (11/11/2023) Pathologist [facility] Depression Screening Abstracted Historical Provider HEALTH MAINTENANCE Final Result * Urine Albumin Creatinine Ratio (04/09/2023) Pathologist [facility] Urine Albumin Creatinine Ratio Abstracted Historical Provider HEALTH MAINTENANCE Final Result from Last 3 Months or Most Recently Relevant to Health Maintenance Insurance MEDICARE [employer] Care Teams Contract Programmer Relationship Specialty Start Date End Date Bahman Corrales MD [address] [address] PCP - General Internal Medicine 12/05/24
--- OUTSIDE RECORDS SUMMARY | 2025-06-21 08:23 | XMS_ITS | Clinical Summary ---
Author Organization [facility] Address [address] [place] [address] Phone Care Team Providers Care Mate Relief Name Role Phone Bahman Corrales MD Primary Care Provider [phone] Allergies Active Allergy Reactions Criticality Noted Date [...] 04/10/2021 Overview (04/10/2021): cardiology Dr. Peguero at [facility] Obese class I 04/10/2021 08/20/2021 Type [...] age to complete this topic Insurance Medicare [facility] Medicare [facility] Care Teams Mate Relief Relationship Specialty Start Date End Date Bahman Corrales MD [address] [place] [address] PCP - General Internal Medicine 03/05/21
--- OUTSIDE RECORDS SUMMARY | 2025-06-21 08:23 | XMS_ITS | Clinical Summary ---
Author Organization [facility] Address [address] [place] [address] Care Team Providers Care Taper/Finisher Name Role Phone Bahman Corrales MD Primary [...] 20 mg by mouth daily. 0 Active [place]-3 Fatty Acids (Fish Oil) 1000 MG CAPS [...] artery 04/10/2021 Overview: cardiology Dr. Peguero at [facility] cardiology Dr. Peguero at [facility] Class 1 obesity 04/10/2021 Type 2 diabetes [...] age to complete this topic Care Teams Taper/Finisher Relationship Specialty Start Date End Date Bahman Corrales MD PCP - General Internal Medicine 07/19/21
--- OUTSIDE RECORDS SUMMARY | 2025-06-21 08:23 | XMS_ITS | Encounter Summary ---
Author Organization [facility] Address [address] [place] [address] Care Team Providers Care Evaluator Name Role Phone Bahman Corrales MD Primary Care Provider [phone] Encounter Details Date Type Department Care Team ([facility] st Contact Info) Description 05/15/2025 Results Follow-Up Internal Medicine - [place] [address] [place] [phone] Bahman Corrales MD [address] [place] [address] Social History Tobacco Use Types Packs/Day Years Used Date Smoking Tobacco: Former Cigarettes 0.8 Q uit: 06/09/1980 Smokeless Tobacco: Never Alcohol [...] Record ed Within the last 3 months, jose d huitron many times did you visit the emergency [...] for your loved ones. For example, child advocate or elderly care for an older adult? [...] Description 06/29/2025 8:30 AM EST Office Visit [facility] - [address] [phone] Connie Baker PA [address] [place] [address] 11/16/2025 9:45 AM EDT Office Visit Internal Medicine - [place] [address] [facility] [address] [place] [phone] Bahman Corrales MD [address] [place] [address] documented as of this encounter Visit Diagnoses Not on filedocumented in this encounter Additional Health Concerns Assessment Noted Time PHQ-9 Depression Total Score: 0 11/09/19 2:57 PM EDT documented as of this encounter Care Teams Evaluator Relationship Specialty Start Date End Date Bahman Corrales MD [address] [facility] [address] [place] [address] PCP - General Internal Medicine 12/05/24 documented as of this encounter
--- OUTSIDE RECORDS SUMMARY | 2025-06-21 08:23 | XMS_ITS | Encounter Summary ---
Author Organization [facility] Address [address] [place] [address] Phone Care Team Providers Care Honey Blender Name Role Phone Bahman Corrales MD Primary Care Provider [phone] Encounter Details Date Type Department Care Team (Late st Contact Info) Description 01/19/2023 Telephone [facility] [address] [place] [phone] Lindsey Neely Social History Tobacco Use Types [...] on filedocumented in this encounter Care Teams Honey Blender Relationship Specialty Start Date End Date Bahman Corrales MD [address] [place] [address] PCP - General Internal Medicine 03/05/21 documented as of this encounter
--- OUTSIDE RECORDS SUMMARY | 2025-06-21 08:23 | XMS_ITS | Encounter Summary ---
Author Organization [facility] Address [address] [place] [address] Phone Care Team Providers Care Crystal Growing Technician Name Role Phone Bahman Corrales MD Primary Care Provider [phone] Encounter Details Date Type Department Care Team (Late st Contact Info) Description 06/02/2022 Telephone [facility] [address] [place] [phone] Shashank Herrera MD Social History Tobacco Use [...] to help. Please call him back at [phone] Thank you documented in this encounter Plan of Treatment Not on file documented as of this encounter Visit Diagnoses Not on filedocumented in this encounter Care Teams Crystal Growing Technician Relationship Specialty Start Date End Date Bahman Corrales MD [address] [place] [address] PCP - General Internal Medicine 03/05/21 documented as of this encounter
[2025-06-21 08:35] VITALS: BP 110/70; PULSE 73; O2SAT 96; BMI 34.4
--- NOTE | 2025-06-21 08:35 | HO.NEPHOV_ITS ---
Vital Signs 06/21/25 08:35 Height 5 ft 9 in Weight 233 lb BMI 34.4 BP 110/70 Blood Pressure Location Lt brachial Position Sitting Pulse 73 Pulse Source Pulse Oximeter Pulse Oximetry (%) 96 Oxygen Delivery Method Room Air Intake Visit Reasons: 6mon follow-up w/labs Commercial Makeup Artist Required: No Accompanied by: Self / Same As Patient Allergies insulin glargine Allergy (Verified 06/21/25 08:36) Unknown Penicillins Allergy (Verified 06/21/25 08:36) Unknown Medication List - Last Reconciled 06/21/25 by Shashank Herrera MD atorvastatin 40 mg PO DAILY cholecalciferol (vitamin D3) 25 mcg PO DAILY cyanocobalamin (vitamin B-12) 1,000 mcg PO DAILY dutasteride mg PO .every other day fluticasone propionate 50 mcg/actuation sprays intranasal PRN glipizide 5 mg PO BID insulin aspart (niacinamide) 100 unit/mL (3 mL) (Fiasp FlexTouch U-100 Insulin) subcut TID insulin aspart U-100 (Novolog FlexPen U-100 Insulin aspart) subcut leuprolide mesylate (6 month) (Camcevi (6 month)) 42 mg subcut [id number] lisinopril 10 mg PO DAILY metoprolol tartrate 25 mg PO BID omeprazole 20 mg PO DAILY PRN vitamin B complex (Vitamins B Complex tablet) 1 tab PO DAILY HPI Comments Details: Ignacio is 78-year-old man with a history of hypertension for more than 15 years and diabetes mellitus for more than 5 years. He was on metformin and glipizide. Metformin was discontinued due to CKD. 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 Interstitial fibrosis with tubular atrophy with moderate to severe arterial/arteriolar sclerosis He has been diagnosed with prostate cancer and currently underwent radiation therapy . Now on Leuprolide SQ q 6 month c/o Fatigue Has gained about 15 lbs 12/21/24 79-year-old male presenting with routine concerns and management of chronic conditions, including anemia and fatigue. He has witnessed a weight increase of 13 pounds over six months, which he attributes to testosterone blockers. He experiences fatigue, with a hemoglobin level at 11.4 g/dL and feels drained during mild exertion, such as mowing the grass. 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 No current pain is reported, and measures are taken against constipation. , evidenced by an A1c of 6.5%. Testosterone deficiency is acknowledged with a level of 0, potentially explaining energy deficits. His kidney function, with creatinine at 1.58 mg/dL, shows improvement compared to previous readings. 06/21/25 The patient is a 80-year-old male presenting with hypertension and chronic kidney disease management. Hypertension has been a concern, with blood pressure readings fluctuating between the 130s and 140s mmHg. Lisinopril was recently reintroduced to manage elevated blood pressure, with the patient starting the medication about a week ago. The patient monitors blood pressure at home, noting occasional readings in the 140s mmHg. The patient has a history of diabetes mellitus, with a recent A1c level reported around 6.9%. He experiences occasional lightheadedness when blood sugar levels are low, but no significant issues with low blood pressure. Chronic kidney disease is being monitored, with a baseline creatinine level of 1.4 mg/dL. The patient is undergoing testosterone blockade therapy, which has resulted in fatigue and weight gain. He reports difficulty with physical activity and increased weight in areas previously unaffected. [facility] Medical History (Updated 08/12/23 @ 10:59 by Shashank Herrera MD) Prostate cancer Hypertension CKD (chronic kidney disease) Surgical History H/O eye surgery History of coronary artery stent placement H/O angioplasty Family History Father Diabetes Throat cancer Social History Alcohol intake: never Patient Tobacco Use Status: Never used Tobacco Physical Exam Vital Signs: Last Vital Signs Pulse 73 06/21/25 08:35 BP 110/70 06/21/25 08:35 Pulse Ox 96 06/21/25 08:35 Oxygen Delivery Method Room Air 06/21/25 08:35 BMI result Body Mass Index 34.4 Results Reviewed Nephrology Results: Hgb, (14.0-18.0) 11.9 g/dl L 06/13/25 WBC, (4.8-10.8) 5.1 X10*3/uL 06/13/25 Plt Count, (160-400) 200 X10*3/uL 06/13/25 Sodium, (135-145) 139 mmol/L 06/13/25 Potassium, (3.3-5.1) 4.5 mmol/L 06/13/25 Chloride, (96-108) 107 mmol/L 06/13/25 Carbon Dioxide, (22-29) 24 mmol/L 06/13/25 BUN, (9-16) 30 mg/dL H 06/13/25 Creatinine, (0.5-1.4) 1.43 mg/dL H 06/13/25 Calcium, (8.4-10.2) 9.4 mg/dL 06/13/25 PTH Intact, (8.7-77.1) 101.5 pg/mL H 12/21/24 Urine Protein, (Neg-Trace) Negative mg/dL 12/21/24 Urine Creatinine 124.31 mg/dL 12/21/24 Assessment & Plan Assessment & Plan (1) CKD (chronic kidney disease) stage 3, GFR 30-59 ml/min: Code(s): N18.30 - Chronic kidney disease, stage 3 unspecified Category: Medical (2) Prostate cancer: Code(s): C61 - Malignant neoplasm of prostate Category: Medical Plan Ray has CKD 3 in the setting of longstanding hypertension and diabetes mellitus. He has no significant proteinuria. Kidney biopsy revealed focal segmental mesan gial nodular expansion with the interstitial fibrosis and tubular atrophy along with moderate to severe arterial and arteriolar sclerosis. At present renal function close to baseline at 1.4 to 1.6. Goal is to slow the progression renal disease. Continue to avoid nephrotoxic agents including NSAIDs. At present blood pressure is well controlled at this time. Maintain hemoglobin A1c less than 7% Recheck Creatinine today since Lisinopril has been added. Mild elevation in PTH He has secondary hyperparathyroidism due to CKD. I will continue to monitor serum calcium phosphorus and PTH and start on vitamin D3 analogues as indicated. Follow PTH/Vit D levels Fatigue Due to testosterone antagonist HCT is stable. Orders: Orders Basic Metabolic Panel Today N18.30 - Chronic kidney disease, stage 3 unspecified Basic Metabolic Panel 6 Months N18.30 - Chronic kidney disease, stage 3 unspecified Coding Level of Care Code Est Pt Level 4 (89912) Diagnoses CKD (chronic kidney disease) stage 3, GFR 30-59 ml/min N18.30 Prostate cancer C61
== END 2025-06-21 08:53 | disposition home or self-care (01) ==
LOC: HO.HKAS 08:17
PROVIDERS: PCP Internal Medicine; Visit Provider Internal Medicine Hypertension Specialist
DX: N18.30 Chronic kidney disease, stage 3 unspecified (principal); C61 Malignant neoplasm of prostate
CPT/HCPCS: 99214